=== PATIENT | female | born 1940 | race Caucasian/White ===

== ENCOUNTER 2022-05-13 11:19 | Inpatient (IN) | payer OTHER, SELFPAY ==
--- NOTE | ~2022-05-13 | XR_ITS ---
EXAMINATION: XR CHEST CLINICAL INFORMATION: Cough COMPARISON: None TECHNIQUE: 2 views of the chest were obtained. FINDINGS: No significant abnormality is noted involving the heart, lungs or mediastinum. A small hiatal hernia is present. Calcifications present in the right supraspinatus tendon consistent with tendinitis. Degenerative changes are present spine with scoliosis convex to right. XR/XR chest 2V IMPRESSION: No acute intrathoracic disease.
--- NOTE | ~2022-05-13 | CT_ITS ---
EXAMINATION: CT HEAD WITHOUT CONTRAST CLINICAL INFORMATION: The lesions, confusion. COMPARISON: None TECHNIQUE: Contiguous axial imaging was performed from the skull base to vertex without intravenous administration of contrast. Coronal and sagittal reformatted images were obtained. This CT examination was performed using dose optimization techniques as appropriate, variously including the following: *Automated exposure control *Adjustment of mA and/or kV according to patient size (this includes techniques or standardized protocols for targeted exams where dose is matched to indication/reason for exam; i.e. extremities or head) *Use of iterative reconstruction technique DLP: 600 mGy-cm FINDINGS: There is no evidence of acute intracranial hemorrhage or territorial infarction. No abnormal mass effect or midline shift is seen. Antunez to white matter differentiation is well preserved. No extra-axial fluid collections are identified. The ventricles are normal in size. There is no abnormal attenuation within the brain parenchyma. The osseous structures and soft tissues are normal. The mastoid air cells and visualized portions of the paranasal sinuses are well aerated. CT/CT head/brain wo con IMPRESSION: No acute intracranial pathology.
--- NOTE | ~2022-05-13 | XR_ITS ---
EXAMINATION: XR HAND WRIST, RIGHT CLINICAL INFORMATION: Fall, trauma, pain COMPARISON: None TECHNIQUE: Right hand and wrist are imaged together in 4 views. A navicular view of the wrist is also included for a total of 5 views. FINDINGS: There is generalized osteopenia. The ulnar variance is neutral. There is no acute or healing fracture, dislocation, destructive process. No erosive arthropathy. No periostitis. XR/XR hand wrist RT IMPRESSION: -No visible fracture or dislocation or destructive process. -Generalized osteopenia.
[2022-05-13 11:28] VITALS: BP 160/64; PULSE 78; O2SAT 98
[2022-05-13 12:42] VITALS: BP 168/72; PULSE 78; RESP 16; TEMP 36.6; O2SAT 95; BMI 25.9
--- NOTE | 2022-05-13 14:08 | ED.GENADULT ---
HPI - General Adult General Chief complaint: General Medical <JIL Starr - Last Filed: 05/13/22 18:48> Stated complaint: feels like bugs are biting her <JIL Starr - Last Filed: 05/13/22 18:48> Time Seen by Provider: 05/13/22 13:46 <JIL Starr Last Filed: 05/13/22 18:48> Source: patient and family (daughter) <JIL Starr Last Filed: 05/13/22 18:48> Mode of arrival: ambulatory <JIL Starr Last Filed: 05/13/22 18:48> Limitations: no limitations <JIL Starr Last Filed: 05/13/22 18:48> History of Present Illness HPI narrative: Patient is an 82 year old female presenting to the emergency department today with a possible bug infestation. Patient states that she has bugs all over her body that are biting her constantly. Patient states that they crawl into her skin then out of her skin and vomit a yellow substance, then crawl back into her skin. Patient's daughter states that no one else sees these bugs and aren't effected by them. Patient's daughter states that the patient was treated for a UTI a week and a half ago through [facility] and the delusions got better briefly. Patient's daughter states that she was given an anti-psychotic in the hospital that helped but they did not prescribe her one. Patient's daughter states that she called the patient's psychiatrist today and they recommended she come to the ED. Patient states that the bugs hurt her very badly. Patient denies any dizziness, lightheadedness, abdominal pain, nausea, vomiting, fever, chills, blurry vision, double vision, loss of vision, chest pain, difficulty breathing, shortness of breath, back pain, night sweats, pain with urination, increased urinary frequency, increased urinary urgency, blood in her urine or stool, syncope or a near syncopal episode, recent trauma or falls, bowel incontinence, bladder incontinence, bowel retention, bladder retention, or any other complaints at this time. <JIL Starr Last Filed: 05/13/22 18:48> Onset (ago): week(s) <JIL Starr Last Filed: 05/13/22 18:48> Pain Consistency: constant <JIL Starr Last Filed: 05/13/22 18:48> Relieving factors: none <JIL Starr Last Filed: 05/13/22 18:48> Exacerbating factors: none <JIL Starr Last Filed: 05/13/22 18:48> Associated symptoms: denies other symptoms <JIL Starr Last Filed: 05/13/22 18:48> Treatments prior to arrival: none <JIL Starr Last Filed: 05/13/22 18:48> Related Data Home medications: Home Medications Medication Instructions Recorded Confirmed amlodipine 10 mg tablet 1 tab PO DAILY 05/13/22 05/13/22 atorvastatin 40 mg tablet 1 tab PO DAILY 05/13/22 05/13/22 bupropion HCl 100 mg tablet,12 hr 1 tab PO QAM 05/13/22 05/13/22 sustained-release clopidogrel 75 mg tablet 1 tab PO DAILY 05/13/22 05/13/22 ezetimibe 10 mg tablet 1 tab PO DAILY 05/13/22 05/13/22 famotidine 20 mg tablet 1 tab PO DAILY 05/13/22 05/13/22 gabapentin 100 mg capsule 1 cap PO TID 05/13/22 05/13/22 insulin glargine 100 unit/mL (3 47 ea subcut DAILY 05/13/22 05/13/22 mL) subcutaneous pen (Lantus Solostar U-100 Insulin) levetiracetam 500 mg tablet 1 tab PO BID 05/13/22 05/13/22 loratadine 10 mg tablet 1 tab PO DAILY 05/13/22 05/13/22 metformin 500 mg tablet,extended 1 tab PO DAILY 05/13/22 05/13/22 release 24 hr mirtazapine 15 mg tablet 1 tab PO BEDTIME 05/13/22 05/13/22 sertraline 100 mg tablet 100 tab PO DAILY 05/13/22 05/13/22 tramadol 50 mg tablet 1 tab PO TID PRN Pain 05/13/22 05/13/22 <JIL Starr Last Filed: 05/13/22 18:48> Allergies/adverse reactions: Allergies Allergy/AdvReac Type Severity Reaction Status Date / Time Sulfa (Sulfonamide Allergy Hives Verified 05/13/22 11:29 Antibiotics) codeine AdvReac Gastrointestinal Verified 05/13/22 11:29 Upset <JIL Starr Last Filed: 05/13/22 18:48> Review of Systems Constitutional: Constitutional: Reports no additional constitutional complaints, Denies chills, Denies fever(s) and Denies night sweats <JIL Starr Last Filed: 05/13/22 18:48> Eyes: Eyes: Reports no additional eye complaints, Denies blurry vision, Denies change in vision, Denies diplopia, Denies eye discharge, Denies loss of vision and Denies eye pain <JIL Starr Last Filed: 05/13/22 18:48> ENT: Denies dizziness <JIL Starr Last Filed: 05/13/22 18:48> Cardiovascular: Cardiovascular: Reports no additional cardiovascular complaints, Denies chest pain, Denies lightheadedness, Denies Loss of Consciousness and Denies dyspnea <JIL Starr Last Filed: 05/13/22 18:48> Respiratory: Respiratory: Reports no additional respiratory complaints and Denies dyspnea <JIL Starr - Last Filed: 05/13/22 18:48> Gastrointestinal: Gastrointestinal: Reports no additional gastrointestinal complaints, Denies abdominal pain, Denies melena, Denies hematochezia, Denies change in bowel habits and Denies change in stool character <JIL Starr Last Filed: 05/13/22 18:48> Genitourinary: Genitourinary: Denies hematuria, Denies urinary frequency, Denies dysuria, Denies urinary incontinence, Denies urinary hesitancy and Denies urinary urgency <JIL Starr Last Filed: 05/13/22 18:48> Musculoskeletal: Musculoskeletal: Reports no additional musculoskeletal complaints, Denies numbness and Denies tingling <JIL Starr Last Filed: 05/13/22 18:48> Neurologic: Denies dizziness, Denies loss of vision, Denies numbness and Denies tingling <JIL Starr Last Filed: 05/13/22 18:48> Psychiatric: Psychiatric: Reports no additional psychiatric complaints and Reports visual hallucinations <JIL Starr - Last Filed: 05/13/22 18:48> Endocrine: Endocrine: Reports no additional endocrine complaints <JIL Starr - Last Filed: 05/13/22 18:48> Hematologic/Lymphatic: Hematologic/Lymphatic: Reports no additional hematologic/lymphatic complaints <JIL Starr - Last Filed: 05/13/22 18:48> Allergic/Immunologic: Allergic/Immunologic: Reports no additional allergic/immunologic complaints <JIL Starr - Last Filed: 05/13/22 18:48> ON LICENSE OF [facility] Past Medical History Attestation statement: The following information was validated with the patient. <JIL Starr - Last Filed: 05/13/22 18:48> Source: old records reviewed (including records from last [facility] ED visit ) <JIL Starr - Last Filed: 05/13/22 18:48> Social History Social History: Social History Alcohol intake: never Patient Tobacco Use Status: Never used Tobacco Use of substances other than those prescribed or required for medical reasons: No Advance Directives: Yes Advance Directives Information Provided: Yes Advance Directives on File: No <JIL Starr - Last Filed: 05/13/22 18:48> Physical Exam ED Vital Signs: Vital Signs - 24 hr 05/14/22 12:28 05/14/22 15:56 05/14/22 23:42 Temperature 98.3 F 98.3 F 98.4 F Pulse Rate 77 82 86 Respiratory Rate 16 16 16 Blood Pressure 145/72 H 140/76 H 137/60 Pulse Oximetry 95 94 93 Oxygen Delivery Method Room Air Room Air Room Air 05/15/22 04:00 05/15/22 06:00 05/15/22 07:59 Temperature 98.2 F 98.0 F Pulse Rate 77 76 81 Respiratory Rate 16 16 16 Blood Pressure 147/74 H 145/70 H 135/70 Pulse Oximetry 95 96 93 Oxygen Delivery Method Room Air Room Air Room Air BMI result Body Mass Index 25.9 <JIL Starr - Last Filed: 05/13/22 18:48> Vital Signs - 24 hr 05/14/22 12:28 05/14/22 15:56 05/14/22 23:42 Temperature 98.3 F 98.3 F 98.4 F Pulse Rate 77 82 86 Respiratory Rate 16 16 16 Blood Pressure 145/72 H 140/76 H 137/60 Pulse Oximetry 95 94 93 Oxygen Delivery Method Room Air Room Air Room Air 05/15/22 04:00 05/15/22 06:00 05/15/22 07:59 Temperature 98.2 F 98.0 F Pulse Rate 77 76 81 Respiratory Rate 16 16 16 Blood Pressure 147/74 H 145/70 H 135/70 Pulse Oximetry 95 96 93 Oxygen Delivery Method Room Air Room Air Room Air BMI result Body Mass Index 25.9 <JIL Leong Last Filed: 05/15/22 11:34> Const General: cooperative, no acute distress, alert and awake <JIL Starr Last Filed: 05/13/22 18:48> Nutritional Appearance: well nourished <JIL Starr Last Filed: 05/13/22 18:48> Orientation/consciousness: oriented to person and oriented to place <JIL Starr Last Filed: 05/13/22 18:48> Limitations: no limitations <JIL Starr Last Filed: 05/13/22 18:48> HENMT Head: Yes normal to inspection and Yes atraumatic <JIL Starr Last Filed: 05/13/22 18:48> Ears: hearing grossly normal bilaterally and external ears normal <JIL Starr Last Filed: 05/13/22 18:48> General nose exam: Normal external nose present, no nasal discharge noted and no epistaxis <JIL Starr Last Filed: 05/13/22 18:48> Face and sinus: Yes normal facial exam, No abrasion and No laceration <JIL Starr Last Filed: 05/13/22 18:48> Mouth: Normal oral and palatal mucosa present, no drooling and no muffled voice <JIL Starr Last Filed: 05/13/22 18:48> Eyes General: appearance normal, both eyes and all related structures <JIL Starr Last Filed: 05/13/22 18:48> Periorbital: periorbital findings normal <Kacy Awan PA - Last Filed: 05/13/22 18:48> Eyelids: Yes eyelids normal <Kacy Awan PA - Last Filed: 05/13/22 18:48> Conjunctivae: conjunctivae normal <Kacy Awan PA - Last Filed: 05/13/22 18:48> Pupils: Equal, round and reactive pupils present <Kacy Awan PA - Last Filed: 05/13/22 18:48> EOM: EOMs intact bilaterally <Kacy Awan PA - Last Filed: 05/13/22 18:48> Neck Neck: Yes normal visual inspection, Yes full ROM and Yes no lymphadenopathy <Kacy Awan PA - Last Filed: 05/13/22 18:48> Chest Chest palpation & inspection: normal inspection of the chest <Kacy Awan PA - Last Filed: 05/13/22 18:48> Resp Effort & Inspection: normal respiratory effort and able to speak in complete sentences <Kacy Awan PA - Last Filed: 05/13/22 18:48> Auscultation: clear to auscultation bilaterally <Kacy Awan PA - Last Filed: 05/13/22 18:48> Cardio Rate: regular rate <Kacy Awan PA - Last Filed: 05/13/22 18:48> Rhythm: regular rhythm <Kacy Awan PA - Last Filed: 05/13/22 18:48> GI Inspection: Yes normal to inspection <Kacy Awan PA - Last Filed: 05/13/22 18:48> Neuro General: oriented to person, oriented to place and moves all extremities <Kacy Awan PA - Last Filed: 05/13/22 18:48> Cranial nerves: Yes Equal, round and reactive pupils present <Kacy Awan PA - Last Filed: 05/13/22 18:48> Cognition (Neuro): normal cognition <Kacy Awan PA - Last Filed: 05/13/22 18:48> Motor exam (neuro): 5/5 motor strength present throughout <Kacy Awan PA - Last Filed: 05/13/22 18:48> Sensory Exam: Normal double simultaneous stimulation for sensation <Kacyeduard NavaJIL youssef Last Filed: 05/13/22 18:48> Coordination: [id number] test normal <Kacyeduard NavaJIL youssef - Last Filed: 05/13/22 18:48> Extrem General: Yes normal to inspection, Yes full ROM and Yes capillary refill normal <Kacyeduard NavaJIL youssef - Last Filed: 05/13/22 18:48> Psych Appearance: grossly normal <Kacy JIL Awan - Last Filed: 05/13/22 18:48> Mental Status: mental status grossly normal <Kacy AwanJIL youssef - Last Filed: 05/13/22 18:48> Affect: normal affect <JIL Starr - Last Filed: 05/13/22 18:48> Attitude: cooperative <JIL Starr - Last Filed: 05/13/22 18:48> Thought process: Normal thought process present <JIL Starr - Last Filed: 05/13/22 18:48> Thought content: Hallucination(s) present visual and tactile <JIL Starr Last Filed: 05/13/22 18:48> Insight: Good insight present (Psych) <JIL Starr - Last Filed: 05/13/22 18:48> Course Course Course Narrative: Physician observation continued. Patient has been seen by Psychiatry and plan is for admission to today. She was seen at [facility] last month, started on risperidone but not discharged on it. She had issues with prolonged QTC at that time. Will repeat her EKG now and reassess her QTC. Was 468 on 05/13/22. Her vital signs are within normal limits today. She is slightly anxious, complaining of a headache for which she got Tylenol. Will continue monitor until she goes up stairs. <JIL Leong - Last Filed: 05/15/22 11:34> Medical Decision Making MDM Narrative Medical decision making narrative: Patient is an 82 year old female presenting to the emergency department today with delusions of bugs biting and living in her skin. Patient's physical exam was unremarkable. Patient's blood work was unremarkable. Patient's urine showed no acute process. Patient's EKG was unremarkable. Patient's chest x-ray and head CT showed no acute process. I explained my physical exam findings as well as all test results to the patient and the patient's daughter. I answered all questions asked by the patient and the patient's daughter. Patient is pending a services consult. Patient signed out to Kathleen BUTCHER. <JIL Starr - Last Filed: 05/13/22 18:48> Differential Diagnosis Differential Diagnosis: dementia, dellusions <JIL Starr - Last Filed: 05/13/22 18:48> Medical Records Medical records reviewed: Yes I reviewed the patient's medical records. <JIL Starr - Last Filed: 05/13/22 18:48> Lab Data Lab results reviewed: Yes I reviewed the patient's lab results. <JIL Starr - Last Filed: 05/13/22 18:48> Result diagrams: : 05/13/22 14:38 05/13/22 14:38 <JIL Starr - Last Filed: 05/13/22 18:48> Labs: Lab Results 05/13/22 05/13/22 05/13/22 Range/Units 14:38 14:38 14:38 WBC 9.3 (4.8-10.8) X10*3/uL RBC 4.91 (4.20-5.50) X10*6/uL Hgb 13.6 (12.0-16.0) g/dl Hct 43.1 (37.0-47.0) % MCV 87.8 (80.0-98.0) fL MCH 27.7 (27.0-33.0) pg MCHC 31.6 (31.0-35.0) g/dl RDW 16.7 H (11.0-16.0) % Plt Count 373 (160-400) X10*3/uL MPV 9.2 L (9.4-12.3) fL Immature Gran % (Auto) 0.3 (0.0-0.4) % Neut % (Auto) 54.3 (45-73) % Lymph % (Auto) 35.1 (20-40) % [place] % (Auto) 8.0 (2-11) % Eos % (Auto) 1.9 (0-4) % Baso % (Auto) 0.4 (0-2) % Lymph # (Auto) 3.3 (1.2-4.9) X10*3/uL [place] # (Auto) 0.7 (0.1-1.2) X10*3/uL Eos # (Auto) 0.2 (0.0-0.4) X10*3/uL Baso # (Auto) 0.0 (0.0-0.2) X10*3/uL Abs Immat Gran (auto) 0.03 (0.00-0.03) X10*3/uL Absolute Neuts (auto) 5.0 (2.0-8.3) x10*3/uL Absolute Nucleated RBC 0.000 (0.0-0.012) X10*3/uL Nucleated RBC % (auto) 0.0 (0.0-0.2) /100WBC Sodium 145 (135-145) mmol/L Potassium 3.4 (3.3-5.1) mmol/L Chloride 106 (96-108) mmol/L Carbon Dioxide 28 (22-29) mmol/L Anion Gap 14 (12-20) BUN 15 (9-16) mg/dL Creatinine 0.92 (0.5-1.4) mg/dL Estim Creat Clear Calc 34.0 Estimated GFR 59 POC Glucose (60-115) mg/dL Random Glucose 65 (60-115) mg/dL Calcium 8.8 (8.4-10.2) mg/dL Magnesium 1.6 (1.6-2.6) mg/dL Total Bilirubin 0.6 (0.0-1.0) mg/dL AST 33 H (5-31) U/L ALT 31 (0-31) U/L Alkaline Phosphatase 105 (39-117) U/L Troponin I High Sens < 3.5 (<3.5-17.0) ng/L Total Protein 6.7 (6.5-8.0) g/dL Albumin 4.2 (3.5-5.0) g/dL Urine Color Urine Appearance Urine pH (5.0-8.0) Ur Specific [place] (1.005-1.025) Urine Protein (NEG-TRACE) MG/DL Urine Glucose (UA) (NEG) MG/DL Urine Ketones (NEG) MG/DL Urine Blood (NEG) Urine Nitrite (NEG) Ur Leukocyte Esterase (NEG) Urine RBC (0) /HPF Urine WBC (0-4) /HPF Ur Squamous Epith Cells /LPF Urine Bacteria /LPF Salicylates < 5.0 L (15-30) mg/dL Acetaminophen 3 (<30) mcg/mL COVID-19 ([facility]) (Negative) COVID-19 Clin Com Influenza Type A (RICK) (Negative) Influenza Type B (RICK) (Negative) Influenza A & B Note 05/13/22 05/13/22 05/13/22 Range/Units 14:38 14:38 17:43 WBC (4.8-10.8) X10*3/uL RBC (4.20-5.50) X10*6/uL Hgb (12.0-16.0) g/dl Hct (37.0-47.0) % MCV (80.0-98.0) fL MCH (27.0-33.0) pg MCHC (31.0-35.0) g/dl RDW (11.0-16.0) % Plt Count (160-400) X10*3/uL MPV (9.4-12.3) fL Immature Gran % (Auto) (0.0-0.4) % Neut % (Auto) (45-73) % Lymph % (Auto) (20-40) % [place] % (Auto) (2-11) % Eos % (Auto) (0-4) % Baso % (Auto) (0-2) % Lymph # (Auto) (1.2-4.9) X10*3/uL [place] # (Auto) (0.1-1.2) X10*3/uL Eos # (Auto) (0.0-0.4) X10*3/uL Baso # (Auto) (0.0-0.2) X10*3/uL Abs Immat Gran (auto) (0.00-0.03) X10*3/uL Absolute Neuts (auto) (2.0-8.3) x10*3/uL Absolute Nucleated RBC (0.0-0.012) X10*3/uL Nucleated RBC % (auto) (0.0-0.2) /100WBC Sodium (135-145) mmol/L Potassium (3.3-5.1) mmol/L Chloride (96-108) mmol/L Carbon Dioxide (22-29) mmol/L Anion Gap (12-20) BUN (9-16) mg/dL Creatinine (0.5-1.4) mg/dL Estim Creat Clear Calc Estimated GFR POC Glucose (60-115) mg/dL Random Glucose (60-115) mg/dL Calcium (8.4-10.2) mg/dL Magnesium (1.6-2.6) mg/dL Total Bilirubin (0.0-1.0) mg/dL AST (5-31) U/L ALT (0-31) U/L Alkaline Phosphatase (39-117) U/L Troponin I High Sens (<3.5-17.0) ng/L Total Protein (6.5-8.0) g/dL Albumin (3.5-5.0) g/dL Urine Color YELLOW Urine Appearance CLEAR Urine pH 6.0 (5.0-8.0) Ur Specific [place] 1.025 (1.005-1.025) Urine Protein NEG (NEG-TRACE) MG/DL Urine Glucose (UA) NEG (NEG) MG/DL Urine Ketones NEG (NEG) MG/DL Urine Blood NEG (NEG) Urine Nitrite NEG (NEG) Ur Leukocyte Esterase TRACE H (NEG) Urine RBC 15-29 H (0) /HPF Urine WBC 0-2 (0-4) /HPF Ur Squamous Epith Cells 3+ /LPF Urine Bacteria 1+ /LPF Salicylates (15-30) mg/dL Acetaminophen (<30) mcg/mL COVID-19 ([facility]) Negative (Negative) COVID-19 Clin Com See Note Influenza Type A (RICK) Negative (Negative) Influenza Type B (RICK) Negative (Negative) Influenza A & B Note See Note 05/13/22 05/13/22 05/14/22 Range/Units 18:30 21:50 07:06 WBC (4.8-10.8) X10*3/uL RBC (4.20-5.50) X10*6/uL Hgb (12.0-16.0) g/dl Hct (37.0-47.0) % MCV (80.0-98.0) fL MCH (27.0-33.0) pg MCHC (31.0-35.0) g/dl RDW (11.0-16.0) % Plt Count (160-400) X10*3/uL MPV (9.4-12.3) fL Immature Gran % (Auto) (0.0-0.4) % Neut % (Auto) (45-73) % Lymph % (Auto) (20-40) % [place] % (Auto) (2-11) % Eos % (Auto) (0-4) % Baso % (Auto) (0-2) % Lymph # (Auto) (1.2-4.9) X10*3/uL [place] # (Auto) (0.1-1.2) X10*3/uL Eos # (Auto) (0.0-0.4) X10*3/uL Baso # (Auto) (0.0-0.2) X10*3/uL Abs Immat Gran (auto) (0.00-0.03) X10*3/uL Absolute Neuts (auto) (2.0-8.3) x10*3/uL Absolute Nucleated RBC (0.0-0.012) X10*3/uL Nucleated RBC % (auto) (0.0-0.2) /100WBC Sodium (135-145) mmol/L Potassium (3.3-5.1) mmol/L Chloride (96-108) mmol/L Carbon Dioxide (22-29) mmol/L Anion Gap (12-20) BUN (9-16) mg/dL Creatinine (0.5-1.4) mg/dL Estim Creat Clear Calc Estimated GFR POC Glucose 63 174 H 89 (60-115) mg/dL Random Glucose (60-115) mg/dL Calcium (8.4-10.2) mg/dL Magnesium (1.6-2.6) mg/dL Total Bilirubin (0.0-1.0) mg/dL AST (5-31) U/L ALT (0-31) U/L Alkaline Phosphatase (39-117) U/L Troponin I High Sens (<3.5-17.0) ng/L Total Protein (6.5-8.0) g/dL Albumin (3.5-5.0) g/dL Urine Color Urine Appearance Urine pH (5.0-8.0) Ur Specific [place] (1.005-1.025) Urine Protein (NEG-TRACE) MG/DL Urine Glucose (UA) (NEG) MG/DL Urine Ketones (NEG) MG/DL Urine Blood (NEG) Urine Nitrite (NEG) Ur Leukocyte Esterase (NEG) Urine RBC (0) /HPF Urine WBC (0-4) /HPF Ur Squamous Epith Cells /LPF Urine Bacteria /LPF Salicylates (15-30) mg/dL Acetaminophen (<30) mcg/mL COVID-19 ([facility]) (Negative) COVID-19 Clin Com Influenza Type A (RICK) (Negative) Influenza Type B (RICK) (Negative) Influenza A & B Note 05/14/22 05/15/22 Range/Units 18:37 07:14 WBC (4.8-10.8) X10*3/uL RBC (4.20-5.50) X10*6/uL Hgb (12.0-16.0) g/dl Hct (37.0-47.0) % MCV (80.0-98.0) fL MCH (27.0-33.0) pg MCHC (31.0-35.0) g/dl RDW (11.0-16.0) % Plt Count (160-400) X10*3/uL MPV (9.4-12.3) fL Immature Gran % (Auto) (0.0-0.4) % Neut % (Auto) (45-73) % Lymph % (Auto) (20-40) % [place] % (Auto) (2-11) % Eos % (Auto) (0-4) % Baso % (Auto) (0-2) % Lymph # (Auto) (1.2-4.9) X10*3/uL [place] # (Auto) (0.1-1.2) X10*3/uL Eos # (Auto) (0.0-0.4) X10*3/uL Baso # (Auto) (0.0-0.2) X10*3/uL Abs Immat Gran (auto) (0.00-0.03) X10*3/uL Absolute Neuts (auto) (2.0-8.3) x10*3/uL Absolute Nucleated RBC (0.0-0.012) X10*3/uL Nucleated RBC % (auto) (0.0-0.2) /100WBC Sodium (135-145) mmol/L Potassium (3.3-5.1) mmol/L Chloride (96-108) mmol/L Carbon Dioxide (22-29) mmol/L Anion Gap (12-20) BUN (9-16) mg/dL Creatinine (0.5-1.4) mg/dL Estim Creat Clear Calc Estimated GFR POC Glucose 83 84 (60-115) mg/dL Random Glucose (60-115) mg/dL Calcium (8.4-10.2) mg/dL Magnesium (1.6-2.6) mg/dL Total Bilirubin (0.0-1.0) mg/dL AST (5-31) U/L ALT (0-31) U/L Alkaline Phosphatase (39-117) U/L Troponin I High Sens (<3.5-17.0) ng/L Total Protein (6.5-8.0) g/dL Albumin (3.5-5.0) g/dL Urine Color Urine Appearance Urine pH (5.0-8.0) Ur Specific [place] (1.005-1.025) Urine Protein (NEG-TRACE) MG/DL Urine Glucose (UA) (NEG) MG/DL Urine Ketones (NEG) MG/DL Urine Blood (NEG) Urine Nitrite (NEG) Ur Leukocyte Esterase (NEG) Urine RBC (0) /HPF Urine WBC (0-4) /HPF Ur Squamous Epith Cells /LPF Urine Bacteria /LPF Salicylates (15-30) mg/dL Acetaminophen (<30) mcg/mL COVID-19 ([facility]) (Negative) COVID-19 Clin Com Influenza Type A (RICK) (Negative) Influenza Type B (RICK) (Negative) Influenza A & B Note <JLI Starr - Last Filed: 05/13/22 18:48> Lab Results 05/13/22 05/13/22 05/13/22 Range/Units 14:38 14:38 14:38 WBC 9.3 (4.8-10.8) X10*3/uL RBC 4.91 (4.20-5.50) X10*6/uL Hgb 13.6 (12.0-16.0) g/dl Hct 43.1 (37.0-47.0) % MCV 87.8 (80.0-98.0) fL MCH 27.7 (27.0-33.0) pg MCHC 31.6 (31.0-35.0) g/dl RDW 16.7 H (11.0-16.0) % Plt Count 373 (160-400) X10*3/uL MPV 9.2 L (9.4-12.3) fL Immature Gran % (Auto) 0.3 (0.0-0.4) % Neut % (Auto) 54.3 (45-73) % Lymph % (Auto) 35.1 (20-40) % [place] % (Auto) 8.0 (2-11) % Eos % (Auto) 1.9 (0-4) % Baso % (Auto) 0.4 (0-2) % Lymph # (Auto) 3.3 (1.2-4.9) X10*3/uL [place] # (Auto) 0.7 (0.1-1.2) X10*3/uL Eos # (Auto) 0.2 (0.0-0.4) X10*3/uL Baso # (Auto) 0.0 (0.0-0.2) X10*3/uL Abs Immat Gran (auto) 0.03 (0.00-0.03) X10*3/uL Absolute Neuts (auto) 5.0 (2.0-8.3) x10*3/uL Absolute Nucleated RBC 0.000 (0.0-0.012) X10*3/uL Nucleated RBC % (auto) 0.0 (0.0-0.2) /100WBC Sodium 145 (135-145) mmol/L Potassium 3.4 (3.3-5.1) mmol/L Chloride 106 (96-108) mmol/L Carbon Dioxide 28 (22-29) mmol/L Anion Gap 14 (12-20) BUN 15 (9-16) mg/dL Creatinine 0.92 (0.5-1.4) mg/dL Estim Creat Clear Calc 34.0 Estimated GFR 59 POC Glucose (60-115) mg/dL Random Glucose 65 (60-115) mg/dL Calcium 8.8 (8.4-10.2) mg/dL Magnesium 1.6 (1.6-2.6) mg/dL Total Bilirubin 0.6 (0.0-1.0) mg/dL AST 33 H (5-31) U/L ALT 31 (0-31) U/L Alkaline Phosphatase 105 (39-117) U/L Troponin I High Sens < 3.5 (<3.5-17.0) ng/L Total Protein 6.7 (6.5-8.0) g/dL Albumin 4.2 (3.5-5.0) g/dL Urine Color Urine Appearance Urine pH (5.0-8.0) Ur Specific [place] (1.005-1.025) Urine Protein (NEG-TRACE) MG/DL Urine Glucose (UA) (NEG) MG/DL Urine Ketones (NEG) MG/DL Urine Blood (NEG) Urine Nitrite (NEG) Ur Leukocyte Esterase (NEG) Urine RBC (0) /HPF Urine WBC (0-4) /HPF Ur Squamous Epith Cells /LPF Urine Bacteria /LPF Salicylates < 5.0 L (15-30) mg/dL Acetaminophen 3 (<30) mcg/mL COVID-19 ([facility]) (Negative) COVID-19 Clin Com Influenza Type A ([facility]) (Negative) Influenza Type B ([facility]ICK) (Negative) Influenza A & B Note 05/13/22 05/13/22 05/13/22 Range/Units 14:38 14:38 17:43 WBC (4.8-10.8) X10*3/uL RBC (4.20-5.50) X10*6/uL Hgb (12.0-16.0) g/dl Hct (37.0-47.0) % MCV (80.0-98.0) fL MCH (27.0-33.0) pg MCHC (31.0-35.0) g/dl RDW (11.0-16.0) % Plt Count (160-400) X10*3/uL MPV (9.4-12.3) fL Immature Gran % (Auto) (0.0-0.4) % Neut % (Auto) (45-73) % Lymph % (Auto) (20-40) % [place] % (Auto) (2-11) % Eos % (Auto) (0-4) % Baso % (Auto) (0-2) % Lymph # (Auto) (1.2-4.9) X10*3/uL [place] # (Auto) (0.1-1.2) X10*3/uL Eos # (Auto) (0.0-0.4) X10*3/uL Baso # (Auto) (0.0-0.2) X10*3/uL Abs Immat Gran (auto) (0.00-0.03) X10*3/uL Absolute Neuts (auto) (2.0-8.3) x10*3/uL Absolute Nucleated RBC (0.0-0.012) X10*3/uL Nucleated RBC % (auto) (0.0-0.2) /100WBC Sodium (135-145) mmol/L Potassium (3.3-5.1) mmol/L Chloride (96-108) mmol/L Carbon Dioxide (22-29) mmol/L Anion Gap (12-20) BUN (9-16) mg/dL Creatinine (0.5-1.4) mg/dL Estim Creat Clear Calc Estimated GFR POC Glucose (60-115) mg/dL Random Glucose (60-115) mg/dL Calcium (8.4-10.2) mg/dL Magnesium (1.6-2.6) mg/dL Total Bilirubin (0.0-1.0) mg/dL AST (5-31) U/L ALT (0-31) U/L Alkaline Phosphatase (39-117) U/L Troponin I High Sens (<3.5-17.0) ng/L Total Protein (6.5-8.0) g/dL Albumin (3.5-5.0) g/dL Urine Color YELLOW Urine Appearance CLEAR Urine pH 6.0 (5.0-8.0) Ur Specific [place] 1.025 (1.005-1.025) Urine Protein NEG (NEG-TRACE) MG/DL Urine Glucose (UA) NEG (NEG) MG/DL Urine Ketones NEG (NEG) MG/DL Urine Blood NEG (NEG) Urine Nitrite NEG (NEG) Ur Leukocyte Esterase TRACE H (NEG) Urine RBC 15-29 H (0) /HPF Urine WBC 0-2 (0-4) /HPF Ur Squamous Epith Cells 3+ /LPF Urine Bacteria 1+ /LPF Salicylates (15-30) mg/dL Acetaminophen (<30) mcg/mL COVID-19 ([facility]) Negative (Negative) COVID-19 Clin Com See Note Influenza Type A ([facility]) Negative (Negative) Influenza Type B (RICK) Negative (Negative) Influenza A & B Note See Note 05/13/22 05/13/22 05/14/22 Range/Units 18:30 21:50 07:06 WBC (4.8-10.8) X10*3/uL RBC (4.20-5.50) X10*6/uL Hgb (12.0-16.0) g/dl Hct (37.0-47.0) % MCV (80.0-98.0) fL MCH (27.0-33.0) pg MCHC (31.0-35.0) g/dl RDW (11.0-16.0) % Plt Count (160-400) X10*3/uL MPV (9.4-12.3) fL Immature Gran % (Auto) (0.0-0.4) % Neut % (Auto) (45-73) % Lymph % (Auto) (20-40) % [place] % (Auto) (2-11) % Eos % (Auto) (0-4) % Baso % (Auto) (0-2) % Lymph # (Auto) (1.2-4.9) X10*3/uL [place] # (Auto) (0.1-1.2) X10*3/uL Eos # (Auto) (0.0-0.4) X10*3/uL Baso # (Auto) (0.0-0.2) X10*3/uL Abs Immat Gran (auto) (0.00-0.03) X10*3/uL Absolute Neuts (auto) (2.0-8.3) x10*3/uL Absolute Nucleated RBC (0.0-0.012) X10*3/uL Nucleated RBC % (auto) (0.0-0.2) /100WBC Sodium (135-145) mmol/L Potassium (3.3-5.1) mmol/L Chloride (96-108) mmol/L Carbon Dioxide (22-29) mmol/L Anion Gap (12-20) BUN (9-16) mg/dL Creatinine (0.5-1.4) mg/dL Estim Creat Clear Calc Estimated GFR POC Glucose 63 174 H 89 (60-115) mg/dL Random Glucose (60-115) mg/dL Calcium (8.4-10.2) mg/dL Magnesium (1.6-2.6) mg/dL Total Bilirubin (0.0-1.0) mg/dL AST (5-31) U/L ALT (0-31) U/L Alkaline Phosphatase (39-117) U/L Troponin I High Sens (<3.5-17.0) ng/L Total Protein (6.5-8.0) g/dL Albumin (3.5-5.0) g/dL Urine Color Urine Appearance Urine pH (5.0-8.0) Ur Specific [place] (1.005-1.025) Urine Protein (NEG-TRACE) MG/DL Urine Glucose (UA) (NEG) MG/DL Urine Ketones (NEG) MG/DL Urine Blood (NEG) Urine Nitrite (NEG) Ur Leukocyte Esterase (NEG) Urine RBC (0) /HPF Urine WBC (0-4) /HPF Ur Squamous Epith Cells /LPF Urine Bacteria /LPF Salicylates (15-30) mg/dL Acetaminophen (<30) mcg/mL COVID-19 ([facility]OR) (Negative) COVID-19 Clin Com Influenza Type A (RICK) (Negative) Influenza Type B (RICK) (Negative) Influenza A & B Note 05/14/22 05/15/22 Range/Units 18:37 07:14 WBC (4.8-10.8) X10*3/uL RBC (4.20-5.50) X10*6/uL Hgb (12.0-16.0) g/dl Hct (37.0-47.0) % MCV (80.0-98.0) fL MCH (27.0-33.0) pg MCHC (31.0-35.0) g/dl RDW (11.0-16.0) % Plt Count (160-400) X10*3/uL MPV (9.4-12.3) fL Immature Gran % (Auto) (0.0-0.4) % Neut % (Auto) (45-73) % Lymph % (Auto) (20-40) % [place] % (Auto) (2-11) % Eos % (Auto) (0-4) % Baso % (Auto) (0-2) % Lymph # (Auto) (1.2-4.9) X10*3/uL [place] # (Auto) (0.1-1.2) X10*3/uL Eos # (Auto) (0.0-0.4) X10*3/uL Baso # (Auto) (0.0-0.2) X10*3/uL Abs Immat Gran (auto) (0.00-0.03) X10*3/uL Absolute Neuts (auto) (2.0-8.3) x10*3/uL Absolute Nucleated RBC (0.0-0.012) X10*3/uL Nucleated RBC % (auto) (0.0-0.2) /100WBC Sodium (135-145) mmol/L Potassium (3.3-5.1) mmol/L Chloride (96-108) mmol/L Carbon Dioxide (22-29) mmol/L Anion Gap (12-20) BUN (9-16) mg/dL Creatinine (0.5-1.4) mg/dL Estim Creat Clear Calc Estimated GFR POC Glucose 83 84 (60-115) mg/dL Random Glucose (60-115) mg/dL Calcium (8.4-10.2) mg/dL Magnesium (1.6-2.6) mg/dL Total Bilirubin (0.0-1.0) mg/dL AST (5-31) U/L ALT (0-31) U/L Alkaline Phosphatase (39-117) U/L Troponin I High Sens (<3.5-17.0) ng/L Total Protein (6.5-8.0) g/dL Albumin (3.5-5.0) g/dL Urine Color Urine Appearance Urine pH (5.0-8.0) Ur Specific [place] (1.005-1.025) Urine Protein (NEG-TRACE) MG/DL Urine Glucose (UA) (NEG) MG/DL Urine Ketones (NEG) MG/DL Urine Blood (NEG) Urine Nitrite (NEG) Ur Leukocyte Esterase (NEG) Urine RBC (0) /HPF Urine WBC (0-4) /HPF Ur Squamous Epith Cells /LPF Urine Bacteria /LPF Salicylates (15-30) mg/dL Acetaminophen (<30) mcg/mL COVID-19 ([facility]) (Negative) COVID-19 Clin Com Influenza Type A (RICK) (Negative) Influenza Type B (RICK) (Negative) Influenza A & B Note <JIL Leong - Last Filed: 05/15/22 11:34> Imaging Data Chest x-ray: Attestation: I personally reviewed and interpreted this imaging study as follows: <JIL Starr - Last Filed: 05/13/22 18:48> My impression: No acute process. <JIL Starr - Last Filed: 05/13/22 18:48> Radiologist's impression: EXAMINATION: XR CHEST CLINICAL INFORMATION: Cough COMPARISON: None TECHNIQUE: 2 views of the chest were obtained. FINDINGS: No significant abnormality is noted involving the heart, lungs or mediastinum. A small hiatal hernia is present. Calcifications present in the right supraspinatus tendon consistent with tendinitis. Degenerative changes are present spine with scoliosis convex to right. XR/XR chest 2V IMPRESSION: No acute intrathoracic disease. Dictated By: Estevan Ramesh MD Signed By: Electronically signed by Estevan Ramesh MD 05/13/22 1520 <JIL Starr - Last Filed: 05/13/22 18:48> CT scan - head: Attestation: I personally reviewed and interpreted this imaging study as follows: <JIL Starr - Last Filed: 05/13/22 18:48> My impression: No acute process. <JIL Starr - Last Filed: 05/13/22 18:48> Radiologist's impression: EXAMINATION: CT HEAD WITHOUT CONTRAST CLINICAL INFORMATION: The lesions, confusion.? COMPARISON: None TECHNIQUE: Contiguous axial imaging was performed from the skull base to vertex without intravenous administration of contrast. Coronal and sagittal reformatted images were obtained. This CT examination was performed using dose optimization techniques as appropriate, variously including the following: *Automated exposure control *Adjustment of mA and/or kV according to patient size (this includes techniques or standardized protocols for targeted exams where dose is matched to indication/reason for exam; i.e. extremities or head) *Use of iterative reconstruction technique DLP: 600 mGy-cm FINDINGS: There is no evidence of acute intracranial hemorrhage or territorial infarction. No abnormal mass effect or midline shift is seen. Antunez to white matter differentiation is well preserved. No extra-axial fluid collections are identified. The ventricles are normal in size. There is no abnormal attenuation within the brain parenchyma. The osseous structures and soft tissues are normal. The mastoid air cells and visualized portions of the paranasal sinuses are well aerated. ? CT/CT head/brain wo con IMPRESSION: No acute intracranial pathology. Dictated By: Estuardo Bal MD Signed By: Electronically signed by Estuardo Bal MD 05/13/22 1525 <JIL Starr - Last Filed: 05/13/22 18:48> ECG Data Attestation: I personally reviewed and interpreted this ECG as follows: <JIL Starr - Last Filed: 05/13/22 18:48> Prior ECG tracings: not available for review <JIL Starr - Last Filed: 05/13/22 18:48> Interpretation: Vent. Rate: 080 BPM ? ? Atrial Rate: 080 BPM P-R Int: 146 ms? QRS Dur: 064 ms QT Int: 406 ms ? ? ? P-R-T Axes: 049 033 041 degrees QTc Int: 468 ms ? Normal sinus rhythm Normal ECG No previous ECGs available Dictated By: Cholo Nunn MD Signed By: Electronically signed by Cholo Nunn MD 05/13/22 1611 <JIL Starr - Last Filed: 05/13/22 18:48> Discharge Plan Discharge Clinical Impression: Delusions, UTI (urinary tract infection) <JIL Starr Last Filed: 05/13/22 18:48> Patient Disposition: Still a Patient <JIL Starr Last Filed: 05/13/22 18:48> Prescriptions: No Action atorvastatin 40 mg tablet 1 tab PO DAILY levetiracetam 500 mg tablet 1 tab PO BID sertraline 100 mg tablet 100 tab PO DAILY clopidogrel 75 mg tablet 1 tab PO DAILY tramadol 50 mg tablet 1 tab PO TID PRN (Reason: Pain) bupropion HCl 100 mg tablet sustained-release 12 hr 1 tab PO QAM famotidine 20 mg tablet 1 tab PO DAILY amlodipine 10 mg tablet 1 tab PO DAILY mirtazapine 15 mg tablet 1 tab PO BEDTIME gabapentin 100 mg capsule 1 cap PO TID metformin 500 mg tablet extended release 24 hr 1 tab PO DAILY loratadine 10 mg tablet 1 tab PO DAILY ezetimibe 10 mg tablet 1 tab PO DAILY insulin glargine [Lantus Solostar U-100 Insulin] 100 unit/mL (3 mL) insulin pen 47 ea subcut DAILY <JIL Starr - Last Filed: 05/13/22 18:48>
--- NOTE | 2022-05-13 14:14 | ECG_ITS ---
Test Reason : sob Blood Pressure : / mmHG Vent. Rate : 080 BPM Atrial Rate : 080 BPM P-R Int : 146 ms QRS Dur : 064 ms QT Int : 406 ms P-R-T Axes : 049 033 041 degrees QTc Int : 468 ms Normal sinus rhythm Normal ECG No previous ECGs available Referred By: Kacy Awan Electronically Signed By:MADDI FERNANDEZ MD
--- NOTE | 2022-05-13 14:41 | PHA.MEDREC ---
Pharmacy Consult ? Medication Reconciliation Pharmacy has completed the medication reconciliation Patient did not know her medications. Called Tommy and Daniel to confirm list..
[2022-05-13 14:42] LABS: MANUAL DIFF FLAG NO
[2022-05-13 14:46] LABS: Basophils Percent Auto 0.4 % (0-2); Eosinophils Absolute Auto 0.2 X10*3/uL (0.0-0.4); Eosinophils Percent Auto 1.9 % (0-4); Hematocrit 43.1 % (37.0-47.0); Hemoglobin 13.6 g/dl (12.0-16.0); Imm Gran Abs Auto 0.03 X10*3/uL (0.00-0.03); Imm Gran Pct Auto 0.3 % (0.0-0.4); Lymphocytes Absolute Auto 3.3 X10*3/uL (1.2-4.9); Lymphocytes Percent Auto 35.1 % (20-40); Mean Corpuscular HGB Conc 31.6 g/dl (31.0-35.0); Mean Corpuscular Hemoglobin 27.7 pg (27.0-33.0); Mean Corpuscular Volume 87.8 fL (80.0-98.0); Mean Platelet Volume 9.2 fL (9.4-12.3); Monocytes Absolute Auto 0.7 X10*3/uL (0.1-1.2); Neutrophils Percent Auto 54.3 % (45-73); Platelet Count 373 X10*3/uL (160-400); Red Blood Count 4.91 X10*6/uL (4.20-5.50); Red Cell Distribution Width 16.7 % (11.0-16.0); White Blood Count 9.3 X10*3/uL (4.8-10.8)
[2022-05-13 15:01] LABS: Acetaminophen LAB 3 mcg/mL (<30); Alanine Aminotransferase 31 U/L (0-31); Albumin Level 4.2 g/dL (3.5-5.0); Alkaline Phosphatase 105 U/L (39-117); Anion Gap 14 (12-20); Aspartate Amino Transferase 33 U/L (5-31); Bilirubin Total 0.6 mg/dL (0.0-1.0); Blood Urea Nitrogen 15 mg/dL (9-16); Calcium 8.8 mg/dL (8.4-10.2); Carbon Dioxide 28 mmol/L (22-29); Chloride 106 mmol/L (96-108); Estimated Glomerular Filt Rate 59; Glucose Random 65 mg/dL (60-115); Magnesium 1.6 mg/dL (1.6-2.6); Potassium 3.4 mmol/L (3.3-5.1); Salicylate < 5.0 mg/dL (15-30); Sodium 145 mmol/L (135-145); Total Protein 6.7 g/dL (6.5-8.0)
[2022-05-13] MEDS: LORazepam 1 MG TABLET PO (15:04)
[2022-05-13 15:05] LABS: Troponin-I High Sensitivity < 3.5 ng/L (<3.5-17.0)
--- NOTE | 2022-05-13 15:06 | PC.NURSE ---
pt is a/o x 2, pt did not know the year. denies any si/hi.
[2022-05-13 15:16] LABS: COVID-19 Test Negative (Negative); IDNOW Serial# 9DB6401D
[2022-05-13 15:17] LABS: IDNOW Serial# 55D5AD1C; Influenza A Negative (Negative); Influenza B2 Negative (Negative)
--- NOTE | 2022-05-13 17:30 | PC.NURSE ---
pt changed into hospital gown, remains confused. Able to void in bed garcia without difficulty when prompted. Requesting food, appears comfortable at rest
[2022-05-13 17:55] LABS: Appearance Urine CLEAR; Color Urine YELLOW; Glucose Urine UA NEG (NEG); Leukocyte Esterase Urine TRACE (NEG); Nitrite Urine NEG (NEG); Specific Gravity - Urine 1.025 (1.005-1.025); Urine Blood NEG (NEG); Urine Ketones NEG (NEG); Urine Protein NEG (NEG-TRACE)
[2022-05-13 18:07] LABS: Bacteria Urine 1+ /LPF; Squamous Epithelial Cell Urine 3+ /LPF
[2022-05-13 18:08] LABS: WBC Urine 0-2 /HPF (0-4)
[2022-05-13 18:40] LABS: Glucose, Whole Blood 63 mg/dL (60-115)
--- NOTE | 2022-05-13 19:14 | MHC.CARE ---
Care Team attempted to contact patients daughter. However, unable to contact and unable to leave voice message. Care Team will attempt to contact patient's daughter later.
[2022-05-13 19:15] VITALS: BP 168/77; PULSE 87; RESP 17; O2SAT 97
--- NOTE | 2022-05-13 19:49 | MHC.CARE ---
Care Team support requested by ED provider for 82 year old female arrived by ambulance experiencing tactile hallucinations. Care Team reviewed medical record and records from ED visit on 05/10 at [facility] with ED provider to rule out medical causes. Per ED provider patients dtr stated that something needs to be done and will not take her back home tonight . She mentioned patients lives upstairs from her daughter, who is also her HCP. Daughter reported concerns of patient hallucinating and being delusional, she mentioned patient states seeing bugs crawling on her skin and sucking up her blood. Patients daughter contact patients therapist and he advised daughter to take patient to the emergency department. She reported in the past patient would pick at the bugs with a sewing needle. Dtr mentioned patients hallucination started in December. Daughter reports patient is deteriorating and refusing services. Daughter reports patient is very forgetful and has no cognitive evaluation. Patient struggles with depression, anxiety and currently on medication. Care Team consulted with ED provider and plan is for patient to be seen by psychiatry. Therapist: [facility] Luis Salcido ext [phone] or ext [phone] PCP: [facility] Dr. Elliott Larios
[2022-05-13 21:56] LABS: Glucose, Whole Blood 174 mg/dL (60-115)
[2022-05-13 22:00] VITALS: BP 150/91; PULSE 90; RESP 18; TEMP 36.9; O2SAT 98
--- NOTE | 2022-05-13 22:00 | PC.NURSE ---
patient diaphoretic, remains confused. Blood sugar 186, VSS. [employer] in room to re-eval, med rec completed for home med administration. Resting on stretcher at this time with no acute distress.
--- NOTE | 2022-05-13 22:06 | MHC.CM.ED ---
CM received consult. Psych consult pending. Met with patient. A&Ox3. Pt answering all CM questions. Know who her doctor and therapist is. Lives alone in a 2 family home. Her ex- and daughter live in the second apartment. Pt has no services/DME. Pt cooks,cleans and does her own ADL's. Family helps with shopping, some cooking and transportation. Pt tells CM that her daughter, Jeanette in October of a brain hemorrhage. She tells CM they were the 3 D's. Her daughters Jeanette Huggins and herself, Archana. Pt very seriously describes bugs that are biting her and sucking into her veins. States this has happened to her before, that this is the 3rd time. She tells CM she really hopes someone can help her because the bugs are hurting her and she is scared. CM suggested that perhaps this is because her daughter had recently in October and pt very clearly to told CM that she is not suppressing anything with her grief and that they are real. Pt tells CM she misses her daughter very much. Pt aware that a doctor will seen her in the morning.Pt then became pale and diaphoretic. RN notified. Will assess blood glucose and VS. Updated Kisha from CARE TEAM regarding above conversation. Will await psych consult in the morning. CM will follow.
[2022-05-14] VITALS (9 sets, daily range): BP systolic 131–167; BP diastolic 60–77; PULSE 77–86; RESP 16–18; TEMP 36.2–36.9; O2SAT 92–95
[2022-05-14] MEDS: Mirtazapine 15 MG TABLET PO ×2 (01:13→22:44)
[2022-05-14] MEDS: levETIRAcetam 500 MG TABLET PO ×3 (01:13→22:44)
[2022-05-14] MEDS: Gabapentin 100 MG CAPSULE PO ×4 (01:14→22:44)
--- NOTE | 2022-05-14 01:14 | PC.NURSE ---
Patient resting, denies pain. Took HS meds without issue.
[2022-05-14 07:11] LABS: Glucose, Whole Blood 89 mg/dL (60-115)
[2022-05-14] MEDS: amLODIPine Besylate 10 MG TABLET PO (08:22)
[2022-05-14] MEDS: Famotidine 20 MG TABLET PO (08:22)
[2022-05-14] MEDS: Sertraline HCL 100 MG TABLET PO (08:22)
[2022-05-14] MEDS: metFORMIN HCl ER 500 MG TAB.ER.24H PO (08:22)
[2022-05-14] MEDS: Atorvastatin Calcium 40 MG TABLET PO (08:22)
[2022-05-14] MEDS: Clopidogrel Bisulfate 75 MG TABLET PO (08:22)
[2022-05-14] MEDS: Loratadine 10 MG TABLET PO (08:22)
[2022-05-14] MEDS: Ezetimibe 10 MG TABLET PO (08:22)
[2022-05-14] MEDS: Insulin Glargine,Hum.rec.anlog 100 UNIT/ML 10 ML VIAL 47 UNIT SUBCUT (08:31)
--- NOTE | 2022-05-14 16:04 | PM.PSYCN ---
History of Present Illness Date of Service: 05/14/2022 Chief Complaint: Tactile hallucinations Reason for Consult: delusional parasitosis Requesting physician: Megan Larry Discussed with referring provider: Yes Sources of Information: patient interviewed, chart reviewed and crisis/core team assessment reviewed Additional Sources of Information: Melissa levin [phone] HPI Narrative: Ms. Ybarra is a 82 year-old woman with hx of DM, HTN, right sided radial nerve palsy who was brought by daughter, Yanna to [facility] due to worsening delusions of bugs crawling into her skin for about 2 months. This pt is known to this medical technical writer through one previous assessment for similar concern at another hospital. Utox not completed on admission but pt does have hx of using cannabis almost daily for several years. Per daughter, pt continues to report that she feels bugs crawling inside of her skin and causing pain and becoming more and more agitated when told that others can't see them. She reports she can see them as well. Pt presents as very overwhelmed and frustrated as she states nurses are laughing about me, no one wants to help. Pt reports scratching with sawing needles trying to get the bugs out. She also reports she is tiding scotch tape around forearm to prevent bugs from spreading all over her body. Pt denies SI/HI. However, she reports she is tired of living this way. Past Psychiatric History: Inpatient: none OP: [facility] Counseling- prescriber Luis ([phone]: [phone]) Past medication trials: seroquel, sertraline, wellbutrin Medical Evaluation Reviewed: Yes Diagnostics Vital Signs (24Hr): Vital Signs - 24 hr 05/13/22 19:15 05/13/22 22:00 05/14/22 01:17 Temperature 98.4 F 97.2 F Pulse Rate 87 90 86 Respiratory Rate 17 18 18 Blood Pressure 168/77 H 150/91 H 160/77 H Pulse Oximetry 97 98 93 Oxygen Delivery Method Room Air Room Air Room Air 05/14/22 02:41 05/14/22 04:00 05/14/22 05:55 Temperature Pulse Rate 86 81 79 Respiratory Rate Blood Pressure 150/63 H 152/66 H 131/65 Pulse Oximetry 93 93 92 Oxygen Delivery Method Room Air Room Air Room Air 05/14/22 07:34 05/14/22 10:42 05/14/22 12:28 Temperature 98.1 F 98.5 F 98.3 F Pulse Rate 80 81 77 Respiratory Rate 16 16 16 Blood Pressure 167/74 H 133/60 145/72 H Pulse Oximetry 93 93 95 Oxygen Delivery Method Room Air Room Air Room Air 05/14/22 15:56 Temperature 98.3 F Pulse Rate 82 Respiratory Rate 16 Blood Pressure 140/76 H Pulse Oximetry 94 Oxygen Delivery Method Room Air BMI result Body Mass Index 25.9 Labs Results: 05/13/22 14:38 05/13/22 14:38 Labs: Laboratory Results - last 48 hr 05/13/22 05/13/22 05/13/22 14:38 14:38 14:38 WBC 9.3 RBC 4.91 Hgb 13.6 Hct 43.1 MCV 87.8 MCH 27.7 MCHC 31.6 RDW 16.7 H Plt Count 373 MPV 9.2 L Immature Gran % (Auto) 0.3 Neut % (Auto) 54.3 Lymph % (Auto) 35.1 Pender % (Auto) 8.0 Eos % (Auto) 1.9 Baso % (Auto) 0.4 Lymph # (Auto) 3.3 Pender # (Auto) 0.7 Eos # (Auto) 0.2 Baso # (Auto) 0.0 Abs Immat Gran (auto) 0.03 Absolute Neuts (auto) 5.0 Absolute Nucleated RBC 0.000 Nucleated RBC % (auto) 0.0 Sodium 145 Potassium 3.4 Chloride 106 Carbon Dioxide 28 Anion Gap 14 BUN 15 Creatinine 0.92 Estim Creat Clear Calc 34.0 Estimated GFR 59 POC Glucose Random Glucose 65 Calcium 8.8 Magnesium 1.6 Total Bilirubin 0.6 AST 33 H ALT 31 Alkaline Phosphatase 105 Troponin I High Sens < 3.5 Total Protein 6.7 Albumin 4.2 Urine Color Urine Appearance Urine pH Ur Specific [place] Urine Protein Urine Glucose (UA) Urine Ketones Urine Blood Urine Nitrite Ur Leukocyte Esterase Urine RBC Urine WBC Ur Squamous Epith Cells Urine Bacteria Salicylates < 5.0 L Acetaminophen 3 COVID-19 ([facility]) COVID-19 Clin Com Influenza Type A (RICK) Influenza Type B (RICK) Influenza A & B Note 05/13/22 05/13/22 05/13/22 14:38 14:38 17:43 WBC RBC Hgb Hct MCV MCH MCHC RDW Plt Count MPV Immature Gran % (Auto) Neut % (Auto) Lymph % (Auto) Pender % (Auto) Eos % (Auto) Baso % (Auto) Lymph # (Auto) Pender # (Auto) Eos # (Auto) Baso # (Auto) Abs Immat Gran (auto) Absolute Neuts (auto) Absolute Nucleated RBC Nucleated RBC % (auto) Sodium Potassium Chloride Carbon Dioxide Anion Gap BUN Creatinine Estim Creat Clear Calc Estimated GFR POC Glucose Random Glucose Calcium Magnesium Total Bilirubin AST ALT Alkaline Phosphatase Troponin I High Sens Total Protein Albumin Urine Color YELLOW Urine Appearance CLEAR Urine pH 6.0 Ur Specific [place] 1.025 Urine Protein NEG Urine Glucose (UA) NEG Urine Ketones NEG Urine Blood NEG Urine Nitrite NEG Ur Leukocyte Esterase TRACE H Urine RBC 15-29 H Urine WBC 0-2 Ur Squamous Epith Cells 3+ Urine Bacteria 1+ Salicylates Acetaminophen COVID-19 ([facility]) Negative COVID-19 Clin Com See Note Influenza Type A (RICK) Negative Influenza Type B (RICK) Negative Influenza A & B Note See Note 05/13/22 05/13/22 05/14/22 18:30 21:50 07:06 WBC RBC Hgb Hct MCV MCH MCHC RDW Plt Count MPV Immature Gran % (Auto) Neut % (Auto) Lymph % (Auto) Pender % (Auto) Eos % (Auto) Baso % (Auto) Lymph # (Auto) Pender # (Auto) Eos # (Auto) Baso # (Auto) Abs Immat Gran (auto) Absolute Neuts (auto) Absolute Nucleated RBC Nucleated RBC % (auto) Sodium Potassium Chloride Carbon Dioxide Anion Gap BUN Creatinine Estim Creat Clear Calc Estimated GFR POC Glucose 63 174 H 89 Random Glucose Calcium Magnesium Total Bilirubin AST ALT Alkaline Phosphatase Troponin I High Sens Total Protein Albumin Urine Color Urine Appearance Urine pH Ur Specific [place] Urine Protein Urine Glucose (UA) Urine Ketones Urine Blood Urine Nitrite Ur Leukocyte Esterase Urine RBC Urine WBC Ur Squamous Epith Cells Urine Bacteria Salicylates Acetaminophen COVID-19 ([facility]) COVID-19 Clin Com Influenza Type A (RICK) Influenza Type B (RICK) Influenza A & B Note Imaging Radiology Impressions: ITS Impressions Chest X-Ray 05/13/22 14:29 IMPRESSION: No acute intrathoracic disease. Head CT 05/13/22 14:30 IMPRESSION: No acute intracranial pathology. Mental Status Exam Mental Status Exam Narrative: Appearance: wearing hospital gown, thin, fair hygiene in NAD Behavior:fearful, overwhelmed by delusions psychomotor:no overt agitation or retardation noted Speech:clear, normal rate/rhythm/volume, spontaneous Thought process: repetitive- re: delusional parasitosis. Thought content:overwhelmed by ideas that bugs are invading her body, damaging all her organs Mood: overwhelmed Affect: congruent, distressed, fearful SI:none HI:none VH/AH:none Delusions:delusional paracitosis Insight/judgment:impaired x 2. Memory/cog: alert, not oriented to situation, but oriented to place, month, not date. Pending MOCA. Medications Medications Current Medications Amlodipine Besylate (Amlodipine Besylate 10 Mg Tablet) 10 mg PO DAILY [facility]; Protocol Last Admin: 05/14/22 08:22 Dose: 10 mg Atorvastatin Calcium (Atorvastatin Calcium 40 Mg Tablet) 40 mg PO DAILY [facility] Last Admin: 05/14/22 08:22 Dose: 40 mg Cefuroxime Axetil (Cefuroxime Axetil 250 Mg Tablet) 250 mg PO BID [facility] Stop: 05/21/22 14:44 Clopidogrel Bisulfate (Clopidogrel Bisulfate 75 Mg Tablet) 75 mg PO DAILY [facility] Last Admin: 05/14/22 08:22 Dose: 75 mg Ezetimibe (Ezetimibe 10 Mg Tablet) 10 mg PO DAILY [facility] Last Admin: 05/14/22 08:22 Dose: 10 mg Famotidine (Famotidine 20 Mg Tablet) 20 mg PO DAILY [facility] Last Admin: 05/14/22 08:22 Dose: 20 mg Gabapentin (Gabapentin 100 Mg Capsule) 100 mg PO TID [facility] Last Admin: 05/14/22 08:22 Dose: 100 mg Insulin Glargine (Insulin Glargine,Hum.Rec.Anlog 100 Unit/Ml 10 Ml Vial) 47 unit SUBCUT DAILY [facility] Last Admin: 05/14/22 08:31 Dose: 47 unit Levetiracetam (Levetiracetam 500 Mg Tablet) 500 mg PO BID [facility] Last Admin: 05/14/22 08:22 Dose: 500 mg Loratadine (Loratadine 10 Mg Tablet) 10 mg PO DAILY [facility] Last Admin: 05/14/22 08:22 Dose: 10 mg Lorazepam (Lorazepam 0.5 Mg Tablet) 0.25 mg PO BID [facility] Metformin HCl (Metformin Hcl Er 500 Mg Tab.Er.24h) 500 mg PO DAILY@0800 [facility] Last Admin: 05/14/22 08:22 Dose: 500 mg Mirtazapine (Mirtazapine 15 Mg Tablet) 15 mg PO BEDTIME [facility] Last Admin: 05/14/22 01:13 Dose: 15 mg Pt Own (Bupropion Hcl 100 Mg Tablet Sustained-Release 12 Hr) 1 tab PO DAILY [facility] Pharmacy Consult (Consult Rx Perform Med Rec) 1 each MISCELLANE ONCE PRN PRN Reason: Consult order Risperidone (Risperidone 0.5 Mg Tablet) 0.5 mg PO BID [facility] Sertraline HCl (Sertraline Hcl 100 Mg Tablet) 100 mg PO DAILY [facility] Last Admin: 05/14/22 08:22 Dose: 100 mg Tramadol HCl (Tramadol Hcl 50 Mg Tablet) 50 mg PO Q8H PRN PRN Reason: Pain, Moderate (Pain Scale 4-6 Allergies Allergies Allergy/AdvReac Type Severity Reaction Status Date / Time Sulfa (Sulfonamide Allergy Hives Verified 05/13/22 11:29 Antibiotics) codeine AdvReac Gastrointestinal Verified 05/13/22 11:29 Upset Assessment & Plan Assessment & Plan (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 I recommend inpatient jose c psych for further stabilization, containment and safety. 2. Start risperidone 0.5mg po BID and ativan 0.25mg po BID, monitor EKG, maintain Qtc <500ms, maintain K>4, Mg >2. Pt does have hx of Qtc prolongation, please monitor closely. 3. Dc wellbutrin as it may worsen psychosis at this point. continue sertraline for now. I spent _25 minutes with the patient and/or on the patient floor today, greater than?50% of which was spent counseling/coordinating care.
[2022-05-14] MEDS: LORazepam 0.5 MG TABLET 0.25 MG PO ×2 (16:43→22:44)
[2022-05-14] MEDS: risperiDONE 0.5 MG TABLET PO ×2 (16:44→22:44)
--- NOTE | 2022-05-14 17:42 | MHC.CARE ---
LOGAN hughes submitted
[2022-05-14 18:43] LABS: Glucose, Whole Blood 83 mg/dL (60-115)
[2022-05-15 04:00] VITALS: BP 147/74; PULSE 77; RESP 16; TEMP 36.8; O2SAT 95
[2022-05-15 06:00] VITALS: BP 145/70; PULSE 76; RESP 16; TEMP 36.7; O2SAT 96
[2022-05-15 07:20] LABS: Glucose, Whole Blood 84 mg/dL (60-115)
[2022-05-15 07:59] VITALS: BP 135/70; PULSE 81; RESP 16; O2SAT 93
[2022-05-15] MEDS: Ezetimibe 10 MG TABLET PO (08:00)
[2022-05-15] MEDS: Sertraline HCL 100 MG TABLET PO (08:00)
[2022-05-15] MEDS: levETIRAcetam 500 MG TABLET PO ×2 (08:00→20:02)
[2022-05-15] MEDS: Atorvastatin Calcium 40 MG TABLET PO (08:00)
[2022-05-15] MEDS: Gabapentin 100 MG CAPSULE PO ×3 (08:00→20:01)
[2022-05-15] MEDS: metFORMIN HCl ER 500 MG TAB.ER.24H PO (08:00)
[2022-05-15] MEDS: Insulin Glargine,Hum.rec.anlog 100 UNIT/ML 10 ML VIAL 47 UNIT SUBCUT (08:01)
[2022-05-15] MEDS: LORazepam 0.5 MG TABLET 0.25 MG PO ×2 (08:01→20:01)
[2022-05-15] MEDS: Famotidine 20 MG TABLET PO (08:01)
[2022-05-15] MEDS: amLODIPine Besylate 10 MG TABLET PO (08:01)
[2022-05-15] MEDS: Loratadine 10 MG TABLET PO (08:01)
[2022-05-15] MEDS: risperiDONE 0.5 MG TABLET PO ×2 (08:01→20:01)
[2022-05-15] MEDS: Clopidogrel Bisulfate 75 MG TABLET PO (08:01)
[2022-05-15] MEDS: traMADoL HCL 50 MG TABLET 25 MG PO (10:52)
--- NOTE | 2022-05-15 11:31 | ECG_ITS ---
Test Reason : medical clearence Blood Pressure : / mmHG Vent. Rate : 080 BPM Atrial Rate : 080 BPM P-R Int : 138 ms QRS Dur : 062 ms QT Int : 386 ms P-R-T Axes : 056 029 051 degrees QTc Int : 445 ms Normal sinus rhythm Normal ECG When compared with ECG of 13-MAY-2022 14:36, No significant change was found Referred By: Karyn Cotto Electronically Signed By:MADDI FERNANDEZ MD
[2022-05-15 11:57] LABS: COVID-19 Test Negative (Negative); IDNOW Serial# 16C4AD1C
[2022-05-15 14:56] VITALS: BP 155/59; PULSE 60; RESP 18; TEMP 36.9; O2SAT 100; BMI 21.5
[2022-05-15] MEDS: hydrOXYzine HCL 25 MG TABLET PO (16:15)
[2022-05-15 16:57] VITALS: BP 145/67; PULSE 80; RESP 17; TEMP 36.8; O2SAT 95
--- NOTE | 2022-05-15 17:27 | PC.ADMIT ---
Patient admitted to unit at 1450 from ED. Arrived via . Patient wearing hospital attire. Appears stated age. Neatly groomed. Alert and oriented x4.Makes good eye contact. Memory and concentration are intact. Mood is anxious. Patient signed CV in ED. Patient admitted to ED by daughter (HCP) secondary to experiencing delusions of bugs crawling into her skin. Patient states, They are very tiny but I can see them when they come to the surface. They come through the skin and suck the vein up. Patient has bruised area to L wrist circled with blue pen to indicate where the bugs have been and to determine if it is getting worse. Patient was tearful and guarded during admission process stating, I don't want to say anything because other nurses have made fun of me. Patient was assured that TW would not do that and provided information. Patient experienced a fall at home approximately 3 weeks ago in which she fractured her R wrist and dislocated her R shoulder. Gait is unsteady and walker is used. Patient medical history includes Diabetes, HTN, COPD, GERD, Chronic Back Pain, R sided radial nerve palsy. Patient uses O2 at 2L at night per daughter. Meds were verified in the hospital ED. Patient was oriented to the unit. Observed having dinner in the dining area with other patients. PCP will be notified during regular business hours.
[2022-05-15 18:00] VITALS: BP 156/70; PULSE 73; RESP 20; TEMP 36.8; O2SAT 96
[2022-05-15] MEDS: Mirtazapine 15 MG TABLET PO (20:01)
[2022-05-16 06:00] VITALS: BP 136/74; PULSE 73; RESP 18; TEMP 36.6; O2SAT 96
[2022-05-16 07:00] VITALS: BMI 25.8
[2022-05-16 09:03] LABS: Alanine Aminotransferase 27 U/L (0-31); Albumin Level 3.7 g/dL (3.5-5.0); Alkaline Phosphatase 92 U/L (39-117); Anion Gap 14 (12-20); Aspartate Amino Transferase 31 U/L (5-31); Bilirubin Total 0.5 mg/dL (0.0-1.0); Blood Urea Nitrogen 21 mg/dL (9-16); Calcium 8.8 mg/dL (8.4-10.2); Carbon Dioxide 27 mmol/L (22-29); Chloride 107 mmol/L (96-108); Cholesterol 134 mg/dL; Creatinine Clr Calc Pharmacy 25.1; Estimated Glomerular Filt Rate 49; Glucose Fasting 116 mg/dL (60-99); HDL Cholesterol 48 mg/dL; LDL Cholesterol Calculated 66 mg/dl; Potassium 4.5 mmol/L (3.3-5.1); Sodium 143 mmol/L (135-145); Total Protein 5.8 g/dL (6.5-8.0); Triglycerides 103 mg/dL
[2022-05-16] MEDS: Insulin Glargine,Hum.rec.anlog 100 UNIT/ML 10 ML VIAL 47 UNIT SUBCUT (09:04)
[2022-05-16] MEDS: LORazepam 0.5 MG TABLET 0.25 MG PO ×3 (09:06→20:44)
[2022-05-16] MEDS: metFORMIN HCl ER 500 MG TAB.ER.24H PO (09:06)
[2022-05-16] MEDS: amLODIPine Besylate 10 MG TABLET PO (09:08)
[2022-05-16] MEDS: levETIRAcetam 500 MG TABLET PO ×2 (09:08→20:44)
[2022-05-16] MEDS: Clopidogrel Bisulfate 75 MG TABLET PO (09:09)
[2022-05-16] MEDS: Loratadine 10 MG TABLET PO (09:09)
[2022-05-16] MEDS: Sertraline HCL 100 MG TABLET PO (09:09)
[2022-05-16] MEDS: risperiDONE 0.5 MG TABLET PO ×2 (09:09→20:46)
[2022-05-16] MEDS: Atorvastatin Calcium 40 MG TABLET PO (09:09)
[2022-05-16] MEDS: Gabapentin 100 MG CAPSULE PO ×3 (09:09→20:47)
[2022-05-16] MEDS: Famotidine 20 MG TABLET PO (09:09)
[2022-05-16] MEDS: Ezetimibe 10 MG TABLET PO (09:09)
[2022-05-16 10:20] LABS: Amphetamine Screen Urine Not Detected (Not Detect); Barbiturates, Urine Not Detected (Not Detect); Benzodiazepines Screen Urine Not Detected (Not Detect); Cannabinoid Screen Urine POSITIVE (Not Detect); Cocaine Screen Urine Not Detected (Not Detect); Fentanyl, urine POSITIVE (Not Detect); Opiate Screen Urine Not Detected (Not Detect); Phencyclidine Screen Urine Not Detected (Not Detect)
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
[2022-05-16] MEDS: hydrOXYzine HCL 25 MG TABLET 12.5 MG PO ×2 (14:56→20:48)
[2022-05-16 18:00] VITALS: BP 118/56; PULSE 78; RESP 16; TEMP 36.7; O2SAT 97
[2022-05-16] MEDS: Hydrocortisone 1 % Cream 28.35 GM TUBE 1 APPL TOPICAL (20:43)
[2022-05-16] MEDS: Mirtazapine 15 MG TABLET PO (20:49)
[2022-05-17 06:00] VITALS: BP 144/69; PULSE 87; RESP 16; TEMP 36.5; O2SAT 95
[2022-05-17] MEDS: Atorvastatin Calcium 40 MG TABLET PO (10:26)
[2022-05-17] MEDS: amLODIPine Besylate 10 MG TABLET PO (10:26)
[2022-05-17] MEDS: Insulin Glargine,Hum.rec.anlog 100 UNIT/ML 10 ML VIAL 47 UNIT SUBCUT (10:26)
[2022-05-17] MEDS: hydrOXYzine HCL 25 MG TABLET 12.5 MG PO ×3 (10:27→20:38)
[2022-05-17] MEDS: LORazepam 0.5 MG TABLET 0.25 MG PO ×3 (10:27→20:37)
[2022-05-17] MEDS: Loratadine 10 MG TABLET PO (10:27)
[2022-05-17] MEDS: Sertraline HCL 100 MG TABLET PO (10:27)
[2022-05-17] MEDS: risperiDONE 0.5 MG TABLET PO ×2 (10:27→20:39)
[2022-05-17] MEDS: Gabapentin 100 MG CAPSULE PO ×3 (10:28→20:39)
[2022-05-17] MEDS: Famotidine 20 MG TABLET PO (10:28)
[2022-05-17] MEDS: Ezetimibe 10 MG TABLET PO (10:28)
[2022-05-17] MEDS: Clopidogrel Bisulfate 75 MG TABLET PO (10:28)
[2022-05-17] MEDS: metFORMIN HCl ER 500 MG TAB.ER.24H PO (10:28)
[2022-05-17] MEDS: levETIRAcetam 500 MG TABLET PO ×2 (10:28→20:39)
[2022-05-17 10:43] LABS: Glucose, Whole Blood 289 mg/dL (60-115)
[2022-05-17 11:23] VITALS: BP 118/56; PULSE 78; O2SAT 97
--- NOTE | 2022-05-17 12:08 | HO.PSYCHPN ---
Subjective Subjective Date of Service: 05/17/22 Reason For Visit: Tactile hallucinations Subjective Notes: Conditional Voluntary Interim History: The nursing staff reported the patient is on one-to-one at night since she has oxygen. She has not attend to groups, she remains tearful in the morning. She has been isolative with poor sleep. According to the chart he has history of several strokes. Also she has pain on her wrist after a fall, according to the ED department, she had a fracture her wrist but it does not seem fracture so we will order a new x-ray. On interview the patient reports some anxiety and confusion.. Mental Status Exam Mental Status Exam Patient Appearance: Well Grooomed Patient Orientation: Person and Situation Level of Consciousness: Awake Patient Behavior: Appropriate and Guarded Mood Description: Withdrawn Affect Description: Labile Patient Cognition Impaired: Yes Ability to Follow Directions: Good Speech Pattern: Clear Hallucinations: None Delusions: Ideas of Reference Thought Process: Distracted and Evasive Thought Content: positive for [place] and positive for Circumstantial Judgement: Fair Diagnostics Vital Signs (24Hr): Vital Signs - 24 hr 05/16/22 18:00 05/17/22 11:23 05/17/22 06:00 Temperature 98.0 F 97.7 F Pulse Rate 78 78 87 Respiratory Rate 16 16 Blood Pressure 118/56 L 118/56 L 144/69 H Pulse Oximetry 97 97 95 Oxygen Delivery Method Room Air Room Air 05/17/22 06:00 Temperature 97.7 F Pulse Rate 87 Respiratory Rate Blood Pressure 144/69 H Pulse Oximetry 95 Oxygen Delivery Method Room Air BMI result Body Mass Index 25.8 Labs Results: 05/13/22 14:38 05/16/22 07:51 Labs: Laboratory Results - last 48 hr 05/16/22 05/16/22 05/17/22 07:51 09:30 10:24 Sodium 143 Potassium 4.5 D Chloride 107 Carbon Dioxide 27 Anion Gap 14 BUN 21 H Creatinine 1.07 Estim Creat Clear Calc 25.1 Estimated GFR 49 POC Glucose 289 H Fasting Glucose 116 H Calcium 8.8 Total Bilirubin 0.5 AST 31 ALT 27 Alkaline Phosphatase 92 Total Protein 5.8 L Albumin 3.7 Triglycerides 103 Cholesterol 134 LDL Cholesterol, Calc 66 HDL Cholesterol 48 Urine Opiates Screen Not Detected Urine Fentanyl Screen POSITIVE H Ur Barbiturates Screen Not Detected Ur Phencyclidine Scrn Not Detected Ur Amphetamines Screen Not Detected U Benzodiazepines Scrn Not Detected Urine Cocaine Screen Not Detected U Marijuana (THC) Screen POSITIVE H Imaging Radiology Impressions: ITS Impressions Chest X-Ray 05/13/22 14:29 IMPRESSION: No acute intrathoracic disease. Head CT 05/13/22 14:30 IMPRESSION: No acute intracranial pathology. Medications Medications Current Medications Acetaminophen (Acetaminophen 325 Mg Tablet) 975 mg PO Q6H PRN PRN Reason: mild pain, Al Hydroxide/Mg Hydroxide (Magnesium Hydrox/Alum Hydrox 30 Ml Oral.Susp) 30 ml PO Q6H PRN PRN Reason: Heartburn/Nausea Amlodipine Besylate (Amlodipine Besylate 10 Mg Tablet) 10 mg PO DAILY [facility]; Protocol Last Admin: 05/17/22 10:26 Dose: 10 mg Atorvastatin Calcium (Atorvastatin Calcium 40 Mg Tablet) 40 mg PO DAILY [facility] Last Admin: 05/17/22 10:26 Dose: 40 mg Cefuroxime Axetil (Cefuroxime Axetil 250 Mg Tablet) 250 mg PO BID [facility] Stop: 05/21/22 14:44 Last Admin: 05/17/22 10:27 Dose: 250 mg Clopidogrel Bisulfate (Clopidogrel Bisulfate 75 Mg Tablet) 75 mg PO DAILY [facility] Last Admin: 05/17/22 10:28 Dose: 75 mg Ezetimibe (Ezetimibe 10 Mg Tablet) 10 mg PO DAILY [facility] Last Admin: 05/17/22 10:28 Dose: 10 mg Famotidine (Famotidine 20 Mg Tablet) 20 mg PO DAILY [facility] Last Admin: 05/17/22 10:28 Dose: 20 mg Gabapentin (Gabapentin 100 Mg Capsule) 100 mg PO TID [facility] Last Admin: 05/17/22 10:28 Dose: 100 mg Hydrocortisone (Hydrocortisone 1 % Cream 28.35 Gm Tube) 1 appl TOPICAL BID [facility]; Protocol Last Admin: 05/16/22 20:43 Dose: 1 appl Hydroxyzine HCl (Hydroxyzine Hcl 25 Mg Tablet) 12.5 mg PO TID [facility] Last Admin: 05/17/22 10:27 Dose: 12.5 mg Insulin Glargine (Insulin Glargine,Hum.Rec.Anlog 100 Unit/Ml 10 Ml Vial) 47 unit SUBCUT DAILY [facility] Last Admin: 05/17/22 10:26 Dose: 47 unit Levetiracetam (Levetiracetam 500 Mg Tablet) 500 mg PO BID [facility] Last Admin: 05/17/22 10:28 Dose: 500 mg Loratadine (Loratadine 10 Mg Tablet) 10 mg PO DAILY [facility] Last Admin: 05/17/22 10:27 Dose: 10 mg Lorazepam (Lorazepam 0.5 Mg Tablet) 0.25 mg PO BID [facility] Last Admin: 05/17/22 10:27 Dose: 0.25 mg Lorazepam (Lorazepam 0.5 Mg Tablet) 0.25 mg PO Q6H PRN PRN Reason: anxiety Last Admin: 05/16/22 17:19 Dose: 0.25 mg Magnesium Hydroxide (Milk Of Magnesia 30 Ml Oral.Susp) 30 ml PO DAILY PRN PRN Reason: Constipation Metformin HCl (Metformin Hcl Er 500 Mg Tab.Er.24h) 500 mg PO DAILY@0800 [facility] Last Admin: 05/17/22 10:28 Dose: 500 mg Mirtazapine (Mirtazapine 15 Mg Tablet) 15 mg PO BEDTIME [facility] Last Admin: 05/16/22 20:49 Dose: 15 mg Risperidone (Risperidone 0.5 Mg Tablet) 0.5 mg PO BID [facility] Last Admin: 05/17/22 10:27 Dose: 0.5 mg Sertraline HCl (Sertraline Hcl 100 Mg Tablet) 100 mg PO DAILY [facility] Last Admin: 05/17/22 10:27 Dose: 100 mg Tramadol HCl (Tramadol Hcl 50 Mg Tablet) 25 mg PO Q8H PRN PRN Reason: Pain, Moderate (Pain Scale 4-6 Last Admin: 05/15/22 10:52 Dose: 25 mg Trazodone HCl (Trazodone Hcl 50 Mg Tablet) 50 mg PO BEDTIME PRN PRN Reason: Insomnia Allergies Allergies Allergy/AdvReac Type Severity Reaction Status Date / Time Sulfa (Sulfonamide Allergy Hives Verified 05/13/22 11:29 Antibiotics) codeine AdvReac Gastrointestinal Verified 05/13/22 11:29 Upset Assessment & Plan Assessment & Plan (1) Cognitive impairment: Status: Acute Code(s): R41.89 - Other symptoms and signs involving cognitive functions and awareness (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 Plan 1. Gather collateral information. 2. Continue antidepressants. 3. Continue antibiotics. 4. Continue antipsychotics I spent ___20___ minutes with the patient and/or on the patient floor today, greater than?50% of which was spent counseling/coordinating care. Reason for contiued inpatient stay Substantial Risk for: inability to function, rapid decompensation and med/psych decompensation
[2022-05-17] MEDS: traMADoL HCL 50 MG TABLET 25 MG PO (13:27)
[2022-05-17] MEDS: Hydrocortisone 1 % Cream 28.35 GM TUBE 1 APPL TOPICAL (13:33)
[2022-05-17 20:15] VITALS: BP 122/69; PULSE 95; RESP 16; TEMP 36.4; O2SAT 98
[2022-05-17] MEDS: Acetaminophen 325 MG TABLET 975 MG PO (20:36)
[2022-05-17] MEDS: Mirtazapine 15 MG TABLET PO (20:38)
[2022-05-17 20:52] VITALS: O2SAT 98
[2022-05-18 06:00] VITALS: BP 173/74; PULSE 82; RESP 16; TEMP 36.8; O2SAT 96
[2022-05-18] MEDS: Insulin Glargine,Hum.rec.anlog 100 UNIT/ML 10 ML VIAL 47 UNIT SUBCUT (08:29)
[2022-05-18] MEDS: LORazepam 0.5 MG TABLET 0.25 MG PO ×2 (08:30→20:11)
[2022-05-18] MEDS: levETIRAcetam 500 MG TABLET PO ×2 (08:31→20:11)
[2022-05-18] MEDS: hydrOXYzine HCL 25 MG TABLET 12.5 MG PO ×3 (08:32→20:11)
[2022-05-18] MEDS: Famotidine 20 MG TABLET PO (08:32)
[2022-05-18] MEDS: Loratadine 10 MG TABLET PO (08:33)
[2022-05-18] MEDS: Ezetimibe 10 MG TABLET PO (08:33)
[2022-05-18] MEDS: Gabapentin 100 MG CAPSULE PO ×3 (08:33→20:11)
[2022-05-18] MEDS: metFORMIN HCl ER 500 MG TAB.ER.24H PO (08:33)
[2022-05-18] MEDS: Clopidogrel Bisulfate 75 MG TABLET PO (08:33)
[2022-05-18] MEDS: Sertraline HCL 100 MG TABLET PO (08:34)
[2022-05-18] MEDS: risperiDONE 0.5 MG TABLET PO ×2 (08:34→20:11)
[2022-05-18] MEDS: Atorvastatin Calcium 40 MG TABLET PO (08:34)
[2022-05-18] MEDS: amLODIPine Besylate 10 MG TABLET PO (08:34)
[2022-05-18] MEDS: traMADoL HCL 50 MG TABLET 25 MG PO ×2 (11:56→20:14)
[2022-05-18 14:17] VITALS: BP 128/58; PULSE 74
--- NOTE | 2022-05-18 15:18 | P.PNPSI_ITS ---
Subjective Subjective Date of Service: 05/18/22 Reason For Visit: Tactile hallucinations Interim History: Patient seen and discussed with RN. Patient is anxious and preoccupied with bugs on her left hand and on rght arm. 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 She then points to a bruise on her right arm and says it was caused by a bug. Proceeds to talk about bugs biting at a scab she had had in the past. Xray hand not read yet. Review of Systems Review of Systems Yes all other systems are reviewed and are negative (Besides pruritus) Constitutional: Reports no additional constitutional complaints, Denies chills, Denies fever(s) and Denies night sweats Eyes: Reports no additional eye complaints, Denies blurry vision, Denies change in vision, Denies diplopia, Denies eye discharge, Denies loss of vision and Denies eye pain Denies dizziness Cardiovascular: Reports no additional cardiovascular complaints, Denies chest pain, Denies lightheadedness, Denies Loss of Consciousness and Denies dyspnea Respiratory: Reports no additional respiratory complaints and Denies dyspnea Gastrointestinal: Reports no additional gastrointestinal complaints, Denies abdominal pain, Denies melena, Denies hematochezia, Denies change in bowel habits and Denies change in stool character Musculoskeletal: Reports no additional musculoskeletal complaints, Denies numbness and Denies tingling Denies dizziness, Denies loss of vision, Denies numbness and Denies tingling Psychiatric: Reports no additional psychiatric complaints and Reports visual hallucinations Endocrine: Reports no additional endocrine complaints Hematologic/Lymphatic: Reports no additional hematologic/lymphatic complaints Allergic/Immunologic: Reports no additional allergic/immunologic complaints Mental Status Exam Mental Status Exam Narrative: Appearance: wearing hospital gown, thin, fair hygiene in NAD Behavior:fearful, overwhelmed by delusions psychomotor:no overt agitation or retardation noted Speech:clear, normal rate/rhythm/volume, spontaneous Thought process: repetitive- re: delusional parasitosis. Thought content:overwhelmed by ideas that bugs are invading her body, damaging all her organs Mood: overwhelmed Affect: congruent, distressed, fearful SI:none HI:none VH/AH:none Delusions:delusional paracitosis Insight/judgment:impaired x 2. Memory/cog: alert, not oriented to situation, but oriented to place, month, not date. Pending MOCA. Patient Appearance: Well Grooomed Patient Orientation: Person and Situation Level of Consciousness: Awake Patient Behavior: Appropriate and Guarded Mood Description: Withdrawn Affect Description: Labile Patient Cognition Impaired: Yes Ability to Follow Directions: Good Speech Pattern: Clear Diagnostics Vital Signs (24Hr): Vital Signs - 24 hr 05/17/22 20:52 05/17/22 20:15 05/18/22 06:00 Temperature 97.6 F 98.2 F Pulse Rate 95 82 Respiratory Rate 16 16 Blood Pressure 122/69 173/74 H Pulse Oximetry 98 98 96 Oxygen Delivery Method Nasal Cannula Room Air Room Air 05/18/22 14:17 Temperature Pulse Rate 74 Respiratory Rate Blood Pressure 128/58 L Pulse Oximetry Oxygen Delivery Method BMI result Body Mass Index 25.8 Labs Results: 05/13/22 14:38 05/16/22 07:51 Labs: Laboratory Results - last 48 hr 05/17/22 10:24 POC Glucose 289 H Imaging Radiology Impressions: ITS Impressions Chest X-Ray 05/13/22 14:29 IMPRESSION: No acute intrathoracic disease. Head CT 05/13/22 14:30 IMPRESSION: No acute intracranial pathology. Medications Medications Current Medications Acetaminophen (Acetaminophen 325 Mg Tablet) 975 mg PO Q6H PRN PRN Reason: mild pain, Last Admin: 05/17/22 20:36 Dose: 975 mg Al Hydroxide/Mg Hydroxide (Magnesium Hydrox/Alum Hydrox 30 Ml Oral.Susp) 30 ml PO Q6H PRN PRN Reason: Heartburn/Nausea Amlodipine Besylate (Amlodipine Besylate 10 Mg Tablet) 10 mg PO DAILY [facility]; Protocol Last Admin: 05/18/22 08:34 Dose: 10 mg Atorvastatin Calcium (Atorvastatin Calcium 40 Mg Tablet) 40 mg PO DAILY [facility] Last Admin: 05/18/22 08:34 Dose: 40 mg Cefuroxime Axetil (Cefuroxime Axetil 250 Mg Tablet) 250 mg PO BID [facility] Stop: 05/21/22 14:44 Last Admin: 05/18/22 08:32 Dose: 250 mg Clopidogrel Bisulfate (Clopidogrel Bisulfate 75 Mg Tablet) 75 mg PO DAILY [facility] Last Admin: 05/18/22 08:33 Dose: 75 mg Ezetimibe (Ezetimibe 10 Mg Tablet) 10 mg PO DAILY [facility] Last Admin: 05/18/22 08:33 Dose: 10 mg Famotidine (Famotidine 20 Mg Tablet) 20 mg PO DAILY [facility] Last Admin: 05/18/22 08:32 Dose: 20 mg Gabapentin (Gabapentin 100 Mg Capsule) 100 mg PO TID [facility] Last Admin: 05/18/22 14:33 Dose: 100 mg Hydrocortisone (Hydrocortisone 1 % Cream 28.35 Gm Tube) 1 appl TOPICAL BID [facility]; Protocol Last Admin: 05/18/22 09:33 Dose: Not Given Hydroxyzine HCl (Hydroxyzine Hcl 25 Mg Tablet) 12.5 mg PO TID [facility] Last Admin: 05/18/22 14:32 Dose: 12.5 mg Insulin Glargine (Insulin Glargine,Hum.Rec.Anlog 100 Unit/Ml 10 Ml Vial) 47 unit SUBCUT DAILY [facility] Last Admin: 05/18/22 08:29 Dose: 47 unit Levetiracetam (Levetiracetam 500 Mg Tablet) 500 mg PO BID [facility] Last Admin: 05/18/22 08:31 Dose: 500 mg Loratadine (Loratadine 10 Mg Tablet) 10 mg PO DAILY [facility] Last Admin: 05/18/22 08:33 Dose: 10 mg Lorazepam (Lorazepam 0.5 Mg Tablet) 0.25 mg PO BID [facility] Last Admin: 05/18/22 08:30 Dose: 0.25 mg Lorazepam (Lorazepam 0.5 Mg Tablet) 0.25 mg PO Q6H PRN PRN Reason: anxiety Last Admin: 05/17/22 13:29 Dose: 0.25 mg Magnesium Hydroxide (Milk Of Magnesia 30 Ml Oral.Susp) 30 ml PO DAILY PRN PRN Reason: Constipation Metformin HCl (Metformin Hcl Er 500 Mg Tab.Er.24h) 500 mg PO DAILY@0800 [facility] Last Admin: 05/18/22 08:33 Dose: 500 mg Mirtazapine (Mirtazapine 15 Mg Tablet) 15 mg PO BEDTIME [facility] Last Admin: 05/17/22 20:38 Dose: 15 mg Risperidone (Risperidone 0.5 Mg Tablet) 0.5 mg PO BID [facility] Last Admin: 05/18/22 08:34 Dose: 0.5 mg Sertraline HCl (Sertraline Hcl 100 Mg Tablet) 100 mg PO DAILY [facility] Last Admin: 05/18/22 08:34 Dose: 100 mg Tramadol HCl (Tramadol Hcl 50 Mg Tablet) 25 mg PO Q8H PRN PRN Reason: Pain, Moderate (Pain Scale 4-6 Last Admin: 05/18/22 11:56 Dose: 25 mg Trazodone HCl (Trazodone Hcl 50 Mg Tablet) 50 mg PO BEDTIME PRN PRN Reason: Insomnia Allergies Allergies Allergy/AdvReac Type Severity Reaction Status Date / Time Sulfa (Sulfonamide Allergy Hives Verified 05/13/22 11:29 Antibiotics) codeine AdvReac Gastrointestinal Verified 05/13/22 11:29 Upset Assessment & Plan Assessment & Plan (1) Cognitive impairment: Status: Acute Code(s): R41.89 - Other symptoms and signs involving cognitive functions and awareness (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 Plan 1. Gather collateral information. 2. Continue antidepressants. 3. Continue antibiotics. 4. Continue antipsychotics 05/18: Continue treatment plan. I spent minutes with the patient and/or on the patient floor today, greater than?50% of which was spent counseling/coordinating care. Reason for contiued inpatient stay Substantial Risk for: inability to function and rapid decompensation
[2022-05-18 18:00] VITALS: BP 166/72; PULSE 82; RESP 16; TEMP 36.6; O2SAT 96
[2022-05-18] MEDS: Mirtazapine 15 MG TABLET PO (20:11)
[2022-05-19] MEDS: Insulin Glargine,Hum.rec.anlog 100 UNIT/ML 10 ML VIAL 47 UNIT SUBCUT (08:10)
[2022-05-19] MEDS: Famotidine 20 MG TABLET PO (08:10)
[2022-05-19] MEDS: amLODIPine Besylate 10 MG TABLET PO (08:11)
[2022-05-19] MEDS: metFORMIN HCl ER 500 MG TAB.ER.24H PO (08:11)
[2022-05-19] MEDS: LORazepam 0.5 MG TABLET 0.25 MG PO (08:11)
[2022-05-19] MEDS: levETIRAcetam 500 MG TABLET PO ×2 (08:13→20:51)
[2022-05-19] MEDS: risperiDONE 0.5 MG TABLET PO ×2 (08:13→20:51)
[2022-05-19] MEDS: Gabapentin 100 MG CAPSULE PO ×3 (08:13→20:46)
[2022-05-19] MEDS: hydrOXYzine HCL 25 MG TABLET 12.5 MG PO ×3 (08:13→20:50)
[2022-05-19] MEDS: Clopidogrel Bisulfate 75 MG TABLET PO (08:13)
[2022-05-19] MEDS: Loratadine 10 MG TABLET PO (08:13)
[2022-05-19] MEDS: Ezetimibe 10 MG TABLET PO (08:14)
[2022-05-19] MEDS: Atorvastatin Calcium 40 MG TABLET PO (08:14)
[2022-05-19] MEDS: Sertraline HCL 100 MG TABLET PO (08:14)
[2022-05-19] MEDS: Acetaminophen 325 MG TABLET 975 MG PO (13:35)
[2022-05-19] MEDS: traMADoL HCL 50 MG TABLET 25 MG PO (13:38)
--- NOTE | 2022-05-19 15:16 | P.PNPSI_ITS ---
Subjective Subjective Date of Service: 05/19/22 Reason For Visit: Tactile hallucinations Interim History: Patient seen and discussed with RN. Patient reports she has not seen the bugs today. She is less preoccupied and perseverative about same today although she did mention to the nurse earlier in the day she is still seeing the bugs on her skin. She seems somewhat less anxious today than yesterday. She denies SI. Review of Systems Review of Systems Yes all other systems are reviewed and are negative (Besides pruritus) Constitutional: Reports no additional constitutional complaints, Denies chills, Denies fever(s) and Denies night sweats Eyes: Reports no additional eye complaints, Denies blurry vision, Denies change in vision, Denies diplopia, Denies eye discharge, Denies loss of vision and Denies eye pain Denies dizziness Cardiovascular: Reports no additional cardiovascular complaints, Denies chest pain, Denies lightheadedness, Denies Loss of Consciousness and Denies dyspnea Respiratory: Reports no additional respiratory complaints and Denies dyspnea Gastrointestinal: Reports no additional gastrointestinal complaints, Denies abdominal pain, Denies melena, Denies hematochezia, Denies change in bowel habits and Denies change in stool character Musculoskeletal: Reports no additional musculoskeletal complaints, Denies numbness and Denies tingling Denies dizziness, Denies loss of vision, Denies numbness and Denies tingling Psychiatric: Reports no additional psychiatric complaints and Reports visual hallucinations Endocrine: Reports no additional endocrine complaints Hematologic/Lymphatic: Reports no additional hematologic/lymphatic complaints Allergic/Immunologic: Reports no additional allergic/immunologic complaints Mental Status Exam Mental Status Exam Narrative: Appearance: wearing hospital gown, thin, fair hygiene in NAD Behavior:fearful, overwhelmed by delusions psychomotor:no overt agitation or retardation noted Speech:clear, normal rate/rhythm/volume, spontaneous Thought process: repetitive- re: delusional parasitosis. Less perseverative today. Thought content:overwhelmed by ideas that bugs are invading her body, damaging all her organs Mood: sad Affect: congruent, distressed, fearful SI:none HI:none VH/AH:none Delusions:delusional paracitosis Insight/judgment:impaired x 2. Memory/cog: alert, not oriented to situation, but oriented to place, month, not date. Pending MOCA. Patient Appearance: Well Grooomed Patient Orientation: Person and Situation Level of Consciousness: Awake Patient Behavior: Appropriate and Guarded Mood Description: Withdrawn Affect Description: Labile Patient Cognition Impaired: Yes Ability to Follow Directions: Good Speech Pattern: Clear Diagnostics Vital Signs (24Hr): Vital Signs - 24 hr 05/18/22 18:00 Temperature 97.9 F Pulse Rate 82 Respiratory Rate 16 Blood Pressure 166/72 H Pulse Oximetry 96 Oxygen Delivery Method Room Air BMI result Body Mass Index 25.8 Labs Results: 05/13/22 14:38 05/16/22 07:51 Imaging Radiology Impressions: ITS Impressions Chest X-Ray 05/13/22 14:29 IMPRESSION: No acute intrathoracic disease. Head CT 05/13/22 14:30 IMPRESSION: No acute intracranial pathology. Medications Medications Current Medications Acetaminophen (Acetaminophen 325 Mg Tablet) 975 mg PO Q6H PRN PRN Reason: mild pain, Last Admin: 05/19/22 13:35 Dose: 975 mg Al Hydroxide/Mg Hydroxide (Magnesium Hydrox/Alum Hydrox 30 Ml Oral.Susp) 30 ml PO Q6H PRN PRN Reason: Heartburn/Nausea Amlodipine Besylate (Amlodipine Besylate 10 Mg Tablet) 10 mg PO DAILY [facility]; Protocol Last Admin: 05/19/22 08:11 Dose: 10 mg Atorvastatin Calcium (Atorvastatin Calcium 40 Mg Tablet) 40 mg PO DAILY [facility] Last Admin: 05/19/22 08:14 Dose: 40 mg Cefuroxime Axetil (Cefuroxime Axetil 250 Mg Tablet) 250 mg PO BID [facility] Stop: 05/21/22 14:44 Last Admin: 05/19/22 08:14 Dose: 250 mg Clopidogrel Bisulfate (Clopidogrel Bisulfate 75 Mg Tablet) 75 mg PO DAILY [facility] Last Admin: 05/19/22 08:13 Dose: 75 mg Ezetimibe (Ezetimibe 10 Mg Tablet) 10 mg PO DAILY [facility] Last Admin: 05/19/22 08:14 Dose: 10 mg Famotidine (Famotidine 20 Mg Tablet) 20 mg PO DAILY [facility] Last Admin: 05/19/22 08:10 Dose: 20 mg Gabapentin (Gabapentin 100 Mg Capsule) 100 mg PO TID [facility] Last Admin: 05/19/22 15:37 Dose: 100 mg Hydrocortisone (Hydrocortisone 1 % Cream 28.35 Gm Tube) 1 appl TOPICAL BID [facility]; Protocol Last Admin: 05/19/22 09:21 Dose: Not Given Hydroxyzine HCl (Hydroxyzine Hcl 25 Mg Tablet) 12.5 mg PO TID [facility] Last Admin: 05/19/22 15:37 Dose: 12.5 mg Ibuprofen (Ibuprofen 400 Mg Tablet) 400 mg PO Q6H PRN PRN Reason: headache Last Admin: 05/19/22 16:06 Dose: 400 mg Insulin Glargine (Insulin Glargine,Hum.Rec.Anlog 100 Unit/Ml 10 Ml Vial) 47 unit SUBCUT DAILY [facility] Last Admin: 05/19/22 08:10 Dose: 47 unit Levetiracetam (Levetiracetam 500 Mg Tablet) 500 mg PO BID [facility] Last Admin: 05/19/22 08:13 Dose: 500 mg Loratadine (Loratadine 10 Mg Tablet) 10 mg PO DAILY [facility] Last Admin: 05/19/22 08:13 Dose: 10 mg Lorazepam (Lorazepam 0.5 Mg Tablet) 0.25 mg PO Q6H PRN PRN Reason: anxiety Last Admin: 05/17/22 13:29 Dose: 0.25 mg Magnesium Hydroxide (Milk Of Magnesia 30 Ml Oral.Susp) 30 ml PO DAILY PRN PRN Reason: Constipation Metformin HCl (Metformin Hcl Er 500 Mg Tab.Er.24h) 500 mg PO DAILY@0800 [facility] Last Admin: 05/19/22 08:11 Dose: 500 mg Mirtazapine (Mirtazapine 15 Mg Tablet) 15 mg PO BEDTIME [facility] Last Admin: 05/18/22 20:11 Dose: 15 mg Risperidone (Risperidone 0.5 Mg Tablet) 0.5 mg PO BID [facility] Last Admin: 05/19/22 08:13 Dose: 0.5 mg Sertraline HCl (Sertraline Hcl 100 Mg Tablet) 100 mg PO DAILY [facility] Last Admin: 05/19/22 08:14 Dose: 100 mg Tramadol HCl (Tramadol Hcl 50 Mg Tablet) 25 mg PO Q8H PRN PRN Reason: Pain, Moderate (Pain Scale 4-6 Last Admin: 05/19/22 13:38 Dose: 25 mg Trazodone HCl (Trazodone Hcl 50 Mg Tablet) 50 mg PO BEDTIME PRN PRN Reason: Insomnia Allergies Allergies Allergy/AdvReac Type Severity Reaction Status Date / Time Sulfa (Sulfonamide Allergy Hives Verified 05/13/22 11:29 Antibiotics) codeine AdvReac Gastrointestinal Verified 05/13/22 11:29 Upset Assessment & Plan Assessment & Plan (1) Cognitive impairment: Status: Acute Code(s): R41.89 - Other symptoms and signs involving cognitive functions and awareness (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 Plan 1. Gather collateral information. 2. Continue antidepressants. 3. Continue antibiotics. 4. Continue antipsychotics 05/18: Continue treatment plan. 05/19: Continue treatment plan. I spent minutes with the patient and/or on the patient floor today, greater than?50% of which was spent counseling/coordinating care. Reason for contiued inpatient stay Substantial Risk for: inability to function and rapid decompensation
[2022-05-19] MEDS: Ibuprofen 400 MG TABLET PO (16:06)
[2022-05-19 19:38] VITALS: BP 167/74; PULSE 80; RESP 16; TEMP 36.6; O2SAT 95
[2022-05-19] MEDS: Mirtazapine 15 MG TABLET PO (20:50)
[2022-05-19] MEDS: traZODone HCL 50 MG TABLET PO (20:51)
[2022-05-20 06:00] VITALS: BP 144/67; PULSE 73; RESP 18; TEMP 36.3; O2SAT 97
[2022-05-20 08:05] LABS: Glucose, Whole Blood 69 mg/dL (60-115)
[2022-05-20] MEDS: Atorvastatin Calcium 40 MG TABLET PO (08:14)
[2022-05-20] MEDS: amLODIPine Besylate 10 MG TABLET PO (08:14)
[2022-05-20] MEDS: risperiDONE 0.5 MG TABLET PO ×2 (08:14→15:42)
[2022-05-20] MEDS: Famotidine 20 MG TABLET PO (08:14)
[2022-05-20] MEDS: hydrOXYzine HCL 25 MG TABLET 12.5 MG PO ×3 (08:14→21:24)
[2022-05-20] MEDS: Sertraline HCL 100 MG TABLET PO (08:14)
[2022-05-20] MEDS: Clopidogrel Bisulfate 75 MG TABLET PO (08:16)
[2022-05-20] MEDS: metFORMIN HCl ER 500 MG TAB.ER.24H PO (08:16)
[2022-05-20] MEDS: Loratadine 10 MG TABLET PO (08:16)
[2022-05-20] MEDS: Gabapentin 100 MG CAPSULE PO ×3 (08:16→21:24)
[2022-05-20] MEDS: Ezetimibe 10 MG TABLET PO (08:16)
[2022-05-20] MEDS: levETIRAcetam 500 MG TABLET PO ×2 (08:16→21:25)
[2022-05-20] MEDS: Insulin Glargine,Hum.rec.anlog 100 UNIT/ML 10 ML VIAL 47 UNIT SUBCUT (08:20)
--- NOTE | 2022-05-20 13:48 | P.PNPSI_ITS ---
Subjective Subjective Date of Service: 05/20/22 Reason For Visit: Tactile hallucinations Subjective Notes: Conditional Voluntary Interim History: The nursing staff reported the patient keeps believing that she has buttocks. She slept well with trazodone. She has participated in some groups and she is on one-to-one for his oxygen at night. The school social worker will arrange a family meeting with her daughter pretty soon. On interview the patient denies new symptoms she states that she has the buttocks and I explained her that she has dermatitis and I will increased the antihistaminics to help her for the pruritus. Medication Compliance: Yes Mental Status Exam Mental Status Exam Patient Appearance: Well Grooomed Patient Orientation: Person and Situation Level of Consciousness: Awake Patient Behavior: Cooperative Mood Description: Calm Affect Description: Constricted Patient Cognition Impaired: Yes Ability to Follow Directions: Good Speech Pattern: Clear Hallucinations: None Delusions: Paranoid Ideation Thought Process: Distracted and Slowed Thinking Thought Content: positive for [place] and positive for Poverty of Content Judgement: Fair Diagnostics Vital Signs (24Hr): Vital Signs - 24 hr 05/19/22 19:38 Temperature 97.8 F Pulse Rate 80 Respiratory Rate 16 Blood Pressure 167/74 H Pulse Oximetry 95 Oxygen Delivery Method Room Air BMI result Body Mass Index 25.8 Labs Results: 05/13/22 14:38 05/16/22 07:51 Labs: Laboratory Results - last 48 hr 05/20/22 08:02 POC Glucose 69 Imaging Radiology Impressions: ITS Impressions Chest X-Ray 05/13/22 14:29 IMPRESSION: No acute intrathoracic disease. Head CT 05/13/22 14:30 IMPRESSION: No acute intracranial pathology. Medications Medications Current Medications Acetaminophen (Acetaminophen 325 Mg Tablet) 975 mg PO Q6H PRN PRN Reason: mild pain, Last Admin: 05/19/22 13:35 Dose: 975 mg Al Hydroxide/Mg Hydroxide (Magnesium Hydrox/Alum Hydrox 30 Ml Oral.Susp) 30 ml PO Q6H PRN PRN Reason: Heartburn/Nausea Amlodipine Besylate (Amlodipine Besylate 10 Mg Tablet) 10 mg PO DAILY [facility]; Protocol Last Admin: 05/20/22 08:14 Dose: 10 mg Atorvastatin Calcium (Atorvastatin Calcium 40 Mg Tablet) 40 mg PO DAILY [facility] Last Admin: 05/20/22 08:14 Dose: 40 mg Cefuroxime Axetil (Cefuroxime Axetil 250 Mg Tablet) 250 mg PO BID [facility] Stop: 05/21/22 14:44 Last Admin: 05/20/22 08:14 Dose: 250 mg Clopidogrel Bisulfate (Clopidogrel Bisulfate 75 Mg Tablet) 75 mg PO DAILY [facility] Last Admin: 05/20/22 08:16 Dose: 75 mg Ezetimibe (Ezetimibe 10 Mg Tablet) 10 mg PO DAILY [facility] Last Admin: 05/20/22 08:16 Dose: 10 mg Famotidine (Famotidine 20 Mg Tablet) 20 mg PO DAILY [facility] Last Admin: 05/20/22 08:14 Dose: 20 mg Gabapentin (Gabapentin 100 Mg Capsule) 100 mg PO TID [facility] Last Admin: 05/20/22 08:16 Dose: 100 mg Hydrocortisone (Hydrocortisone 1 % Cream 28.35 Gm Tube) 1 appl TOPICAL BID [facility]; Protocol Last Admin: 05/20/22 08:47 Dose: Not Given Hydroxyzine HCl (Hydroxyzine Hcl 25 Mg Tablet) 12.5 mg PO TID [facility] Last Admin: 05/20/22 08:14 Dose: 12.5 mg Ibuprofen (Ibuprofen 400 Mg Tablet) 400 mg PO Q6H PRN PRN Reason: headache Last Admin: 05/19/22 16:06 Dose: 400 mg Insulin Glargine (Insulin Glargine,Hum.Rec.Anlog 100 Unit/Ml 10 Ml Vial) 47 unit SUBCUT DAILY [facility] Last Admin: 05/20/22 08:20 Dose: 47 unit Levetiracetam (Levetiracetam 500 Mg Tablet) 500 mg PO BID [facility] Last Admin: 05/20/22 08:16 Dose: 500 mg Loratadine (Loratadine 10 Mg Tablet) 10 mg PO DAILY [facility] Last Admin: 05/20/22 08:16 Dose: 10 mg Lorazepam (Lorazepam 0.5 Mg Tablet) 0.25 mg PO Q6H PRN PRN Reason: anxiety Last Admin: 05/17/22 13:29 Dose: 0.25 mg Magnesium Hydroxide (Milk Of Magnesia 30 Ml Oral.Susp) 30 ml PO DAILY PRN PRN Reason: Constipation Metformin HCl (Metformin Hcl Er 500 Mg Tab.Er.24h) 500 mg PO DAILY@0800 [facility] Last Admin: 05/20/22 08:16 Dose: 500 mg Mirtazapine (Mirtazapine 15 Mg Tablet) 15 mg PO BEDTIME [facility] Last Admin: 05/19/22 20:50 Dose: 15 mg Risperidone (Risperidone 0.5 Mg Tablet) 0.5 mg PO BID@0800,1500 [facility] Risperidone (Risperidone 1 Mg Tablet) 1 mg PO BEDTIME [facility] Sertraline HCl (Sertraline Hcl 100 Mg Tablet) 100 mg PO DAILY [facility] Last Admin: 05/20/22 08:14 Dose: 100 mg Trazodone HCl (Trazodone Hcl 50 Mg Tablet) 50 mg PO BEDTIME PRN PRN Reason: Insomnia Last Admin: 05/19/22 20:51 Dose: 50 mg Allergies Allergies Allergy/AdvReac Type Severity Reaction Status Date / Time Sulfa (Sulfonamide Allergy Hives Verified 05/13/22 11:29 Antibiotics) codeine AdvReac Gastrointestinal Verified 05/13/22 11:29 Upset Assessment & Plan Assessment & Plan (1) Cognitive impairment: Status: Acute Code(s): R41.89 - Other symptoms and signs involving cognitive functions and awareness (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 Plan 1. Gather collateral information. 2. Continue antidepressants. 3. Continue antibiotics. 4. Continue antipsychotics I spent ___20___ minutes with the patient and/or on the patient floor today, greater than?50% of which was spent counseling/coordinating care. Reason for contiued inpatient stay Substantial Risk for: inability to function, rapid decompensation and med/psych decompensation
[2022-05-20] MEDS: Ibuprofen 400 MG TABLET PO (17:02)
[2022-05-20 18:00] VITALS: BP 152/70; PULSE 83; TEMP 36.6; O2SAT 95
[2022-05-20] MEDS: Acetaminophen 325 MG TABLET 975 MG PO (18:03)
[2022-05-20] MEDS: Hydrocortisone 1 % Cream 28.35 GM TUBE 1 APPL TOPICAL (21:24)
[2022-05-20] MEDS: Mirtazapine 15 MG TABLET PO (21:25)
[2022-05-20] MEDS: risperiDONE 1 MG TABLET PO (21:25)
[2022-05-21 01:00] VITALS: BP 142/64; PULSE 89; RESP 16; TEMP 35.8; O2SAT 98
[2022-05-21 01:07] LABS: Glucose, Whole Blood 64 mg/dL (60-115)
[2022-05-21 05:22] LABS: Glucose, Whole Blood 101 mg/dL (60-115)
[2022-05-21 08:13] VITALS: BP 165/70; PULSE 80; RESP 18; TEMP 36.3; O2SAT 96
[2022-05-21] MEDS: Famotidine 20 MG TABLET PO (08:17)
[2022-05-21] MEDS: hydrOXYzine HCL 25 MG TABLET 12.5 MG PO ×3 (08:17→21:29)
[2022-05-21] MEDS: metFORMIN HCl ER 500 MG TAB.ER.24H PO (08:17)
[2022-05-21] MEDS: Gabapentin 100 MG CAPSULE PO ×3 (08:18→22:11)
[2022-05-21] MEDS: Atorvastatin Calcium 40 MG TABLET PO (08:18)
[2022-05-21] MEDS: risperiDONE 0.5 MG TABLET PO ×2 (08:18→14:33)
[2022-05-21] MEDS: Sertraline HCL 100 MG TABLET PO (08:19)
[2022-05-21] MEDS: Clopidogrel Bisulfate 75 MG TABLET PO (08:19)
[2022-05-21] MEDS: Loratadine 10 MG TABLET PO (08:19)
[2022-05-21] MEDS: amLODIPine Besylate 10 MG TABLET PO (08:19)
[2022-05-21] MEDS: Ezetimibe 10 MG TABLET PO (08:19)
[2022-05-21] MEDS: Insulin Glargine,Hum.rec.anlog 100 UNIT/ML 10 ML VIAL 47 UNIT SUBCUT (08:20)
[2022-05-21] MEDS: levETIRAcetam 500 MG TABLET PO ×2 (08:20→21:29)
--- NOTE | 2022-05-21 12:34 | P.PNPSI_ITS ---
Subjective Subjective Date of Service: 05/21/22 Reason For Visit: Tactile hallucinations Subjective Notes: Conditional Voluntary Interim History: The nursing staff reported the patient still thinks that she has backed on her skin. The staff reported that she did very good in groups. The patient complains on interview of some pain and we discussed the possibility of have a mortal consult for her wrist. The social media director reported will have a family meeting known on Friday. Mental Status Exam Mental Status Exam Patient Appearance: Well Grooomed Patient Orientation: Person and Situation Level of Consciousness: Awake and Appropriate Patient Behavior: Cooperative Mood Description: Calm Affect Description: Constricted Patient Cognition Impaired: Yes Speech Pattern: Clear Hallucinations: None Delusions: Not Present Thought Process: Linear Thought Content: positive for [place]um[place] Judgement: Fair Diagnostics Vital Signs (24Hr): Vital Signs - 24 hr 05/20/22 18:00 05/21/22 01:00 05/21/22 08:13 Temperature 98 F 96.5 F L 97.4 F Pulse Rate 83 89 80 Respiratory Rate 16 18 Blood Pressure 152/70 H 142/64 H 165/70 H Pulse Oximetry 95 98 96 Oxygen Delivery Method Room Air Room Air BMI result Body Mass Index 25.8 Labs Results: 05/13/22 14:38 05/16/22 07:51 Labs: Laboratory Results - last 48 hr 05/20/22 05/21/22 05/21/22 08:02 00:47 05:16 POC Glucose 69 64 101 Imaging Radiology Impressions: ITS Impressions Chest X-Ray 05/13/22 14:29 IMPRESSION: No acute intrathoracic disease. Head CT 05/13/22 14:30 IMPRESSION: No acute intracranial pathology. Hand/Wrist X-Ray 05/17/22 14:32 IMPRESSION: -No visible fracture or dislocation or destructive process. -Generalized osteopenia. Medications Medications Current Medications Acetaminophen (Acetaminophen 325 Mg Tablet) 975 mg PO Q6H PRN PRN Reason: mild pain, Last Admin: 05/20/22 18:03 Dose: 975 mg Al Hydroxide/Mg Hydroxide (Magnesium Hydrox/Alum Hydrox 30 Ml Oral.Susp) 30 ml PO Q6H PRN PRN Reason: Heartburn/Nausea Amlodipine Besylate (Amlodipine Besylate 10 Mg Tablet) 10 mg PO DAILY [facility]; Protocol Last Admin: 05/21/22 08:19 Dose: 10 mg Atorvastatin Calcium (Atorvastatin Calcium 40 Mg Tablet) 40 mg PO DAILY [facility] Last Admin: 05/21/22 08:18 Dose: 40 mg Cefuroxime Axetil (Cefuroxime Axetil 250 Mg Tablet) 250 mg PO BID [facility] Stop: 05/21/22 14:44 Last Admin: 05/21/22 08:17 Dose: 250 mg Clopidogrel Bisulfate (Clopidogrel Bisulfate 75 Mg Tablet) 75 mg PO DAILY [facility] Last Admin: 05/21/22 08:19 Dose: 75 mg Ezetimibe (Ezetimibe 10 Mg Tablet) 10 mg PO DAILY [facility] Last Admin: 05/21/22 08:19 Dose: 10 mg Famotidine (Famotidine 20 Mg Tablet) 20 mg PO DAILY [facility] Last Admin: 05/21/22 08:17 Dose: 20 mg Gabapentin (Gabapentin 100 Mg Capsule) 100 mg PO TID [facility] Last Admin: 05/21/22 08:18 Dose: 100 mg Hydrocortisone (Hydrocortisone 1 % Cream 28.35 Gm Tube) 1 appl TOPICAL BID [facility]; Protocol Last Admin: 05/21/22 08:22 Dose: Not Given Hydroxyzine HCl (Hydroxyzine Hcl 25 Mg Tablet) 12.5 mg PO TID [facility] Last Admin: 05/21/22 08:17 Dose: 12.5 mg Ibuprofen (Ibuprofen 400 Mg Tablet) 400 mg PO Q6H PRN PRN Reason: headache Last Admin: 05/20/22 17:02 Dose: 400 mg Insulin Glargine (Insulin Glargine,Hum.Rec.Anlog 100 Unit/Ml 10 Ml Vial) 47 unit SUBCUT DAILY [facility] Last Admin: 05/21/22 08:20 Dose: 47 unit Levetiracetam (Levetiracetam 500 Mg Tablet) 500 mg PO BID [facility] Last Admin: 05/21/22 08:20 Dose: 500 mg Loratadine (Loratadine 10 Mg Tablet) 10 mg PO DAILY [facility] Last Admin: 05/21/22 08:19 Dose: 10 mg Lorazepam (Lorazepam 0.5 Mg Tablet) 0.25 mg PO Q6H PRN PRN Reason: anxiety Last Admin: 05/17/22 13:29 Dose: 0.25 mg Magnesium Hydroxide (Milk Of Magnesia 30 Ml Oral.Susp) 30 ml PO DAILY PRN PRN Reason: Constipation Metformin HCl (Metformin Hcl Er 500 Mg Tab.Er.24h) 500 mg PO DAILY@0800 [facility] Last Admin: 05/21/22 08:17 Dose: 500 mg Mirtazapine (Mirtazapine 15 Mg Tablet) 15 mg PO BEDTIME [facility] Last Admin: 05/20/22 21:25 Dose: 15 mg Risperidone (Risperidone 0.5 Mg Tablet) 0.5 mg PO BID@0800,1500 [facility] Last Admin: 05/21/22 08:18 Dose: 0.5 mg Risperidone (Risperidone 1 Mg Tablet) 1 mg PO BEDTIME [facility] Last Admin: 05/20/22 21:25 Dose: 1 mg Sertraline HCl (Sertraline Hcl 100 Mg Tablet) 100 mg PO DAILY [facility] Last Admin: 05/21/22 08:19 Dose: 100 mg Trazodone HCl (Trazodone Hcl 50 Mg Tablet) 50 mg PO BEDTIME PRN PRN Reason: Insomnia Last Admin: 05/19/22 20:51 Dose: 50 mg Allergies Allergies Allergy/AdvReac Type Severity Reaction Status Date / Time Sulfa (Sulfonamide Allergy Hives Verified 05/13/22 11:29 Antibiotics) codeine AdvReac Gastrointestinal Verified 05/13/22 11:29 Upset Assessment & Plan Assessment & Plan (1) Cognitive impairment: Status: Acute Code(s): R41.89 - Other symptoms and signs involving cognitive functions and awareness (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 Plan 1. Gather collateral information. 2. Continue antidepressants. 3. Continue antibiotics. 4. Continue antipsychotics I spent ___20___ minutes with the patient and/or on the patient floor today, greater than?50% of which was spent counseling/coordinating care. Reason for contiued inpatient stay Substantial Risk for: inability to function, rapid decompensation and med/psych decompensation
[2022-05-21 18:00] VITALS: BP 138/83; PULSE 84; RESP 16; TEMP 36.3; O2SAT 98
[2022-05-21] MEDS: risperiDONE 1 MG TABLET PO (21:29)
[2022-05-21] MEDS: Mirtazapine 15 MG TABLET PO (21:30)
[2022-05-22 06:00] VITALS: BP 121/57; PULSE 86; RESP 16; TEMP 36.4; O2SAT 98
[2022-05-22] MEDS: Acetaminophen 325 MG TABLET 975 MG PO (06:22)
[2022-05-22] MEDS: Atorvastatin Calcium 40 MG TABLET PO (08:15)
[2022-05-22] MEDS: amLODIPine Besylate 10 MG TABLET PO (08:15)
[2022-05-22] MEDS: metFORMIN HCl ER 500 MG TAB.ER.24H PO (08:15)
[2022-05-22] MEDS: Sertraline HCL 100 MG TABLET PO (08:16)
[2022-05-22] MEDS: levETIRAcetam 500 MG TABLET PO ×2 (08:16→20:01)
[2022-05-22] MEDS: hydrOXYzine HCL 25 MG TABLET 12.5 MG PO ×3 (08:16→20:01)
[2022-05-22] MEDS: Loratadine 10 MG TABLET PO (08:17)
[2022-05-22] MEDS: risperiDONE 0.5 MG TABLET PO ×2 (08:17→15:36)
[2022-05-22] MEDS: Ezetimibe 10 MG TABLET PO (08:17)
[2022-05-22] MEDS: Gabapentin 100 MG CAPSULE PO ×3 (08:17→20:01)
[2022-05-22] MEDS: Clopidogrel Bisulfate 75 MG TABLET PO (08:17)
[2022-05-22] MEDS: Famotidine 20 MG TABLET PO (08:18)
[2022-05-22] MEDS: Insulin Glargine,Hum.rec.anlog 100 UNIT/ML 10 ML VIAL 47 UNIT SUBCUT (08:18)
[2022-05-22] MEDS: Hydrocortisone 1 % Cream 28.35 GM TUBE 1 APPL TOPICAL ×2 (09:43→20:33)
[2022-05-22] MEDS: Ibuprofen 400 MG TABLET PO ×2 (09:57→20:00)
--- NOTE | 2022-05-22 13:27 | P.PNPSI_ITS ---
Subjective Subjective Date of Service: 05/22/22 Reason For Visit: Tactile hallucinations Subjective Notes: Conditional Voluntary Interim History: The nursing staff reported the patient still complaining of having bugs on her skin. She was labilel with episodes of crying and episodes of laughing. On interview the patient reports that she still has problems with her skin. At this moment she is at a high dose of Risperdal as a mood stabilizer. No side effects. Mental Status Exam Mental Status Exam Patient Appearance: Well Grooomed Patient Orientation: Person and Situation Level of Consciousness: Awake Patient Behavior: Cooperative Mood Description: Withdrawn Affect Description: Labile Patient Cognition Impaired: Yes Ability to Follow Directions: Good Speech Pattern: Clear Hallucinations: None Delusions: Ideas of Reference and Bizarre Perceptual Disturbances: Hallucinations (Somatic) Thought Process: Distracted Thought Content: positive for [place] and positive for Poverty of Content Judgement: Fair Diagnostics Vital Signs (24Hr): Vital Signs - 24 hr 05/21/22 18:00 05/22/22 06:00 Temperature 97.3 F 97.5 F Pulse Rate 84 86 Respiratory Rate 16 16 Blood Pressure 138/83 121/57 L Pulse Oximetry 98 98 Oxygen Delivery Method Nasal Cannula Room Air Oxygen Flow Rate 2 BMI result Body Mass Index 25.8 Labs Results: 05/13/22 14:38 05/16/22 07:51 Labs: Laboratory Results - last 48 hr 05/21/22 05/21/22 00:47 05:16 POC Glucose 64 101 Imaging Radiology Impressions: ITS Impressions Chest X-Ray 05/13/22 14:29 IMPRESSION: No acute intrathoracic disease. Head CT 05/13/22 14:30 IMPRESSION: No acute intracranial pathology. Hand/Wrist X-Ray 05/17/22 14:32 IMPRESSION: -No visible fracture or dislocation or destructive process. -Generalized osteopenia. Medications Medications Current Medications Acetaminophen (Acetaminophen 325 Mg Tablet) 975 mg PO Q6H PRN PRN Reason: mild pain, Last Admin: 05/22/22 06:22 Dose: 975 mg Al Hydroxide/Mg Hydroxide (Magnesium Hydrox/Alum Hydrox 30 Ml Oral.Susp) 30 ml PO Q6H PRN PRN Reason: Heartburn/Nausea Amlodipine Besylate (Amlodipine Besylate 10 Mg Tablet) 10 mg PO DAILY [facility]; Protocol Last Admin: 05/22/22 08:15 Dose: 10 mg Atorvastatin Calcium (Atorvastatin Calcium 40 Mg Tablet) 40 mg PO DAILY [facility] Last Admin: 05/22/22 08:15 Dose: 40 mg Clopidogrel Bisulfate (Clopidogrel Bisulfate 75 Mg Tablet) 75 mg PO DAILY [facility] Last Admin: 05/22/22 08:17 Dose: 75 mg Ezetimibe (Ezetimibe 10 Mg Tablet) 10 mg PO DAILY [facility] Last Admin: 05/22/22 08:17 Dose: 10 mg Famotidine (Famotidine 20 Mg Tablet) 20 mg PO DAILY [facility] Last Admin: 05/22/22 08:18 Dose: 20 mg Gabapentin (Gabapentin 100 Mg Capsule) 100 mg PO TID [facility] Last Admin: 05/22/22 08:17 Dose: 100 mg Hydrocortisone (Hydrocortisone 1 % Cream 28.35 Gm Tube) 1 appl TOPICAL BID [facility]; Protocol Last Admin: 05/22/22 09:43 Dose: 1 appl Hydroxyzine HCl (Hydroxyzine Hcl 25 Mg Tablet) 12.5 mg PO TID [facility] Last Admin: 05/22/22 08:16 Dose: 12.5 mg Ibuprofen (Ibuprofen 400 Mg Tablet) 400 mg PO Q6H PRN PRN Reason: headache Last Admin: 05/22/22 09:57 Dose: 400 mg Insulin Glargine (Insulin Glargine,Hum.Rec.Anlog 100 Unit/Ml 10 Ml Vial) 47 unit SUBCUT DAILY [facility] Last Admin: 05/22/22 08:18 Dose: 47 unit Levetiracetam (Levetiracetam 500 Mg Tablet) 500 mg PO BID [facility] Last Admin: 05/22/22 08:16 Dose: 500 mg Loratadine (Loratadine 10 Mg Tablet) 10 mg PO DAILY [facility] Last Admin: 05/22/22 08:17 Dose: 10 mg Magnesium Hydroxide (Milk Of Magnesia 30 Ml Oral.Susp) 30 ml PO DAILY PRN PRN Reason: Constipation Metformin HCl (Metformin Hcl Er 500 Mg Tab.Er.24h) 500 mg PO DAILY@0800 [facility] Last Admin: 05/22/22 08:15 Dose: 500 mg Mirtazapine (Mirtazapine 15 Mg Tablet) 15 mg PO BEDTIME [facility] Last Admin: 05/21/22 21:30 Dose: 15 mg Risperidone (Risperidone 0.5 Mg Tablet) 0.5 mg PO BID@0800,1500 [facility] Last Admin: 05/22/22 08:17 Dose: 0.5 mg Risperidone (Risperidone 1 Mg Tablet) 1 mg PO BEDTIME [facility] Last Admin: 05/21/22 21:29 Dose: 1 mg Sertraline HCl (Sertraline Hcl 100 Mg Tablet) 100 mg PO DAILY [facility] Last Admin: 05/22/22 08:16 Dose: 100 mg Trazodone HCl (Trazodone Hcl 50 Mg Tablet) 50 mg PO BEDTIME PRN PRN Reason: Insomnia Last Admin: 05/19/22 20:51 Dose: 50 mg Allergies Allergies Allergy/AdvReac Type Severity Reaction Status Date / Time Sulfa (Sulfonamide Allergy Hives Verified 05/13/22 11:29 Antibiotics) codeine AdvReac Gastrointestinal Verified 05/13/22 11:29 Upset Assessment & Plan Assessment & Plan (1) Cognitive impairment: Status: Acute Code(s): R41.89 - Other symptoms and signs involving cognitive functions and awareness (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 Plan 1. Gather collateral information. 2. Continue antidepressants. 3. Continue antibiotics. 4. Continue antipsychotics I spent minutes with the patient and/or on the patient floor today, greater than?50% of which was spent counseling/coordinating care. Reason for contiued inpatient stay Substantial Risk for: inability to function, rapid decompensation and med/psych decompensation
[2022-05-22 18:00] VITALS: BP 147/68; PULSE 78; RESP 16; TEMP 37.1; O2SAT 95
[2022-05-22] MEDS: risperiDONE 1 MG TABLET PO (20:01)
[2022-05-22] MEDS: Mirtazapine 15 MG TABLET PO (20:01)
[2022-05-22 20:24] LABS: Glucose, Whole Blood 130 mg/dL (60-115)
[2022-05-23 01:20] VITALS: BP 160/69; PULSE 86; RESP 16; TEMP 36.1; O2SAT 98
[2022-05-23 01:28] LABS: Glucose, Whole Blood 53 mg/dL (60-115)
[2022-05-23 01:30] VITALS: BP 137/63; PULSE 86; RESP 18; TEMP 36.6; O2SAT 96
[2022-05-23 01:37] LABS: Glucose, Whole Blood 95 mg/dL (60-115)
--- NOTE | 2022-05-23 01:48 | PC.NURSE ---
P. pt compliant i do not feel right i am hot and sweaty i. assessment-awake/sensorium intact.complexion pale. skin warm/diaphoretic. wearing nocturnal o2 2lpm. resp effort regular unlabored. i. vitals 97.1 p 86 bpm rr 16 sao2 98% b/p 160/69 i. pt IDDM with several recent episodes of hypoglycemia poc checked 53 i. 2 cups of orange juice offered and drunk i. 4 gram crackers covered in peanut butter offered and eaten i. rechecked poc 95 i. vitals 97.8 p 86 bpm rr 18 sao2 96% b/p 137/63
[2022-05-23 05:44] LABS: Glucose, Whole Blood 118 mg/dL (60-115)
[2022-05-23 07:35] VITALS: BP 158/69; PULSE 77; RESP 16; TEMP 36.4; O2SAT 96
--- NOTE | 2022-05-23 13:16 | HO.PSYCHPN ---
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 On interview the patient was pleasantly confused but the staff reported that she has been tearful and labile. Not participating groups. Mental Status Exam Mental Status Exam Patient Appearance: Well Grooomed Patient Orientation: Person and Situation Level of Consciousness: Awake Patient Behavior: Guarded Mood Description: Withdrawn Affect Description: Calm Patient Cognition Impaired: Yes Ability to Follow Directions: Good Speech Pattern: Clear Hallucinations: None Delusions: Bizarre Thought Process: Distracted and Evasive Thought Content: positive for [place] Judgement: Fair Diagnostics Vital Signs (24Hr): Vital Signs - 24 hr 05/22/22 18:00 05/23/22 01:20 05/23/22 01:30 Temperature 98.8 F 97 F 97.8 F Pulse Rate 78 86 86 Respiratory Rate 16 16 18 Blood Pressure 147/68 H 160/69 H 137/63 Pulse Oximetry 95 98 96 Oxygen Delivery Method Room Air Nasal Cannula Nasal Cannula Oxygen Flow Rate 2 2 05/23/22 07:35 Temperature 97.5 F Pulse Rate 77 Respiratory Rate 16 Blood Pressure 158/69 H Pulse Oximetry 96 Oxygen Delivery Method Room Air Oxygen Flow Rate BMI result Body Mass Index 25.8 Labs Results: 05/13/22 14:38 05/16/22 07:51 Labs: Laboratory Results - last 48 hr 05/22/22 05/23/22 05/23/22 20:17 01:19 01:33 POC Glucose 130 H 53 L* 95 05/23/22 05:40 POC Glucose 118 H Imaging Radiology Impressions: ITS Impressions Chest X-Ray 05/13/22 14:29 IMPRESSION: No acute intrathoracic disease. Head CT 05/13/22 14:30 IMPRESSION: No acute intracranial pathology. Hand/Wrist X-Ray 05/17/22 14:32 IMPRESSION: -No visible fracture or dislocation or destructive process. -Generalized osteopenia. Medications Medications Current Medications Acetaminophen (Acetaminophen 325 Mg Tablet) 975 mg PO Q6H PRN PRN Reason: mild pain, Last Admin: 05/22/22 06:22 Dose: 975 mg Al Hydroxide/Mg Hydroxide (Magnesium Hydrox/Alum Hydrox 30 Ml Oral.Susp) 30 ml PO Q6H PRN PRN Reason: Heartburn/Nausea Amlodipine Besylate (Amlodipine Besylate 10 Mg Tablet) 10 mg PO DAILY [facility]; Protocol Last Admin: 05/23/22 10:17 Dose: Not Given Atorvastatin Calcium (Atorvastatin Calcium 40 Mg Tablet) 40 mg PO DAILY [facility] Last Admin: 05/23/22 10:17 Dose: Not Given Clopidogrel Bisulfate (Clopidogrel Bisulfate 75 Mg Tablet) 75 mg PO DAILY [facility] Last Admin: 05/23/22 10:19 Dose: Not Given Ezetimibe (Ezetimibe 10 Mg Tablet) 10 mg PO DAILY [facility] Last Admin: 05/23/22 10:19 Dose: Not Given Famotidine (Famotidine 20 Mg Tablet) 20 mg PO DAILY [facility] Last Admin: 05/23/22 10:20 Dose: Not Given Gabapentin (Gabapentin 100 Mg Capsule) 100 mg PO TID [facility] Last Admin: 05/23/22 10:20 Dose: Not Given Hydrocortisone (Hydrocortisone 1 % Cream 28.35 Gm Tube) 1 appl TOPICAL BID [facility]; Protocol Last Admin: 05/23/22 10:20 Dose: Not Given Hydroxyzine HCl (Hydroxyzine Hcl 25 Mg Tablet) 12.5 mg PO TID [facility] Last Admin: 05/23/22 10:20 Dose: Not Given Ibuprofen (Ibuprofen 400 Mg Tablet) 400 mg PO Q6H PRN PRN Reason: headache Last Admin: 05/22/22 20:00 Dose: 400 mg Insulin Glargine (Insulin Glargine,Hum.Rec.Anlog 100 Unit/Ml 10 Ml Vial) 47 unit SUBCUT DAILY [facility] Last Admin: 05/23/22 10:20 Dose: Not Given Levetiracetam (Levetiracetam 500 Mg Tablet) 500 mg PO BID [facility] Last Admin: 05/23/22 10:21 Dose: Not Given Loratadine (Loratadine 10 Mg Tablet) 10 mg PO DAILY [facility] Last Admin: 05/23/22 10:21 Dose: Not Given Magnesium Hydroxide (Milk Of Magnesia 30 Ml Oral.Susp) 30 ml PO DAILY PRN PRN Reason: Constipation Metformin HCl (Metformin Hcl Er 500 Mg Tab.Er.24h) 500 mg PO DAILY@0800 [facility] Last Admin: 05/23/22 10:17 Dose: Not Given Mirtazapine (Mirtazapine 15 Mg Tablet) 15 mg PO BEDTIME [facility] Last Admin: 05/22/22 20:01 Dose: 15 mg Risperidone (Risperidone 0.5 Mg Tablet) 0.5 mg PO BID@0800,1500 [facility] Last Admin: 05/23/22 10:17 Dose: Not Given Risperidone (Risperidone 1 Mg Tablet) 1 mg PO BEDTIME [facility] Last Admin: 05/22/22 20:01 Dose: 1 mg Sertraline HCl (Sertraline Hcl 100 Mg Tablet) 100 mg PO DAILY [facility] Last Admin: 05/23/22 10:21 Dose: Not Given Trazodone HCl (Trazodone Hcl 50 Mg Tablet) 50 mg PO BEDTIME PRN PRN Reason: Insomnia Last Admin: 05/19/22 20:51 Dose: 50 mg Allergies Allergies Allergy/AdvReac Type Severity Reaction Status Date / Time Sulfa (Sulfonamide Allergy Hives Verified 05/13/22 11:29 Antibiotics) codeine AdvReac Gastrointestinal Verified 05/13/22 11:29 Upset Assessment & Plan Assessment & Plan (1) Cognitive impairment: Status: Acute Code(s): R41.89 - Other symptoms and signs involving cognitive functions and awareness (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 Plan 1. Gather collateral information. 2. Continue antidepressants. 3. Continue antibiotics. 4. Continue antipsychotics I spent ___20___ minutes with the patient and/or on the patient floor today, greater than?50% of which was spent counseling/coordinating care. Reason for contiued inpatient stay Substantial Risk for: inability to function, rapid decompensation and med/psych decompensation
[2022-05-23] MEDS: hydrOXYzine HCL 25 MG TABLET 12.5 MG PO ×2 (14:19→20:23)
[2022-05-23] MEDS: Gabapentin 100 MG CAPSULE PO ×2 (14:20→20:25)
[2022-05-23] MEDS: LORazepam 1 MG TABLET PO (14:20)
[2022-05-23] MEDS: risperiDONE 0.5 MG TABLET PO (15:57)
[2022-05-23 19:30] VITALS: BP 111/55; PULSE 88; TEMP 36.6
[2022-05-23] MEDS: levETIRAcetam 500 MG TABLET PO (20:23)
[2022-05-23] MEDS: traMADoL HCL 50 MG TABLET 25 MG PO (20:24)
[2022-05-23] MEDS: risperiDONE 1 MG TABLET PO (20:25)
[2022-05-23] MEDS: Mirtazapine 15 MG TABLET PO (20:25)
[2022-05-23 23:15] LABS: Glucose, Whole Blood 153 mg/dL (60-115)
[2022-05-24 07:45] LABS: Glucose, Whole Blood 106 mg/dL (60-115)
[2022-05-24 07:50] VITALS: BP 151/70; PULSE 72; RESP 16; TEMP 36.2; O2SAT 94
[2022-05-24] MEDS: Insulin Glargine,Hum.rec.anlog 100 UNIT/ML 10 ML VIAL 47 UNIT SUBCUT (07:50)
[2022-05-24] MEDS: levETIRAcetam 500 MG TABLET PO ×2 (07:52→20:27)
[2022-05-24] MEDS: Gabapentin 100 MG CAPSULE PO ×3 (07:52→20:27)
[2022-05-24] MEDS: Ezetimibe 10 MG TABLET PO (07:52)
[2022-05-24] MEDS: traMADoL HCL 50 MG TABLET 25 MG PO ×2 (07:53→20:27)
[2022-05-24] MEDS: Atorvastatin Calcium 40 MG TABLET PO (07:53)
[2022-05-24] MEDS: risperiDONE 0.5 MG TABLET PO ×2 (07:55→14:45)
[2022-05-24] MEDS: metFORMIN HCl ER 500 MG TAB.ER.24H PO (07:56)
[2022-05-24] MEDS: Loratadine 10 MG TABLET PO (07:56)
[2022-05-24] MEDS: hydrOXYzine HCL 25 MG TABLET 12.5 MG PO ×3 (07:56→20:26)
[2022-05-24] MEDS: amLODIPine Besylate 10 MG TABLET PO (07:57)
[2022-05-24] MEDS: Famotidine 20 MG TABLET PO (07:57)
[2022-05-24] MEDS: Sertraline HCL 100 MG TABLET PO (07:57)
[2022-05-24] MEDS: Clopidogrel Bisulfate 75 MG TABLET PO (07:58)
--- NOTE | 2022-05-24 09:02 | P.PNPSI_ITS ---
Subjective Subjective Date of Service: 05/24/22 Reason For Visit: Tactile hallucinations Interim History: PATIENT DEPRESSED WITHDRAWN NOW DENYING ANY ACTIVE SUICIDAL THOUGHTS BUT REMAINS TEARFUL DESPAIRING Medication Compliance: Yes Mental Status Exam Mental Status Exam Patient Appearance: Well Grooomed Patient Orientation: Person and Situation Level of Consciousness: Awake Patient Behavior: Guarded Mood Description: Withdrawn Affect Description: Calm Patient Cognition Impaired: Yes Ability to Follow Directions: Good Speech Pattern: Clear Hallucinations: None Delusions: Bizarre Thought Process: Distracted and Evasive Thought Content: positive for [place] Judgement: Fair Diagnostics Vital Signs (24Hr): Vital Signs - 24 hr 05/23/22 19:30 Temperature 97.9 F Pulse Rate 88 Blood Pressure 111/55 L BMI result Body Mass Index 25.8 Labs Results: 05/13/22 14:38 05/24/22 09:56 Labs: Laboratory Results - last 48 hr 05/22/22 05/23/22 05/23/22 20:17 01:19 01:33 POC Glucose 130 H 53 L* 95 05/23/22 05/23/22 05/24/22 05:40 23:11 07:41 POC Glucose 118 H 153 H 106 Imaging Radiology Impressions: ITS Impressions Chest X-Ray 05/13/22 14:29 IMPRESSION: No acute intrathoracic disease. Head CT 05/13/22 14:30 IMPRESSION: No acute intracranial pathology. Hand/Wrist X-Ray 05/17/22 14:32 IMPRESSION: -No visible fracture or dislocation or destructive process. -Generalized osteopenia. Medications Medications Current Medications Acetaminophen (Acetaminophen 325 Mg Tablet) 975 mg PO Q6H PRN PRN Reason: mild pain, Last Admin: 05/22/22 06:22 Dose: 975 mg Al Hydroxide/Mg Hydroxide (Magnesium Hydrox/Alum Hydrox 30 Ml Oral.Susp) 30 ml PO Q6H PRN PRN Reason: Heartburn/Nausea Amlodipine Besylate (Amlodipine Besylate 10 Mg Tablet) 10 mg PO DAILY [facility]; Protocol Last Admin: 05/24/22 07:57 Dose: 10 mg Atorvastatin Calcium (Atorvastatin Calcium 40 Mg Tablet) 40 mg PO DAILY [facility] Last Admin: 05/24/22 07:53 Dose: 40 mg Clopidogrel Bisulfate (Clopidogrel Bisulfate 75 Mg Tablet) 75 mg PO DAILY [facility] Last Admin: 05/24/22 07:58 Dose: 75 mg Ezetimibe (Ezetimibe 10 Mg Tablet) 10 mg PO DAILY [facility] Last Admin: 05/24/22 07:52 Dose: 10 mg Famotidine (Famotidine 20 Mg Tablet) 20 mg PO DAILY [facility] Last Admin: 05/24/22 07:57 Dose: 20 mg Gabapentin (Gabapentin 100 Mg Capsule) 100 mg PO TID [facility] Last Admin: 05/24/22 07:52 Dose: 100 mg Hydrocortisone (Hydrocortisone 1 % Cream 28.35 Gm Tube) 1 appl TOPICAL BID [facility]; Protocol Last Admin: 05/24/22 08:05 Dose: Not Given Hydroxyzine HCl (Hydroxyzine Hcl 25 Mg Tablet) 12.5 mg PO TID [facility] Last Admin: 05/24/22 07:56 Dose: 12.5 mg Ibuprofen (Ibuprofen 400 Mg Tablet) 400 mg PO Q6H PRN PRN Reason: headache Last Admin: 05/22/22 20:00 Dose: 400 mg Insulin Glargine (Insulin Glargine,Hum.Rec.Anlog 100 Unit/Ml 10 Ml Vial) 47 unit SUBCUT DAILY [facility] Last Admin: 05/24/22 07:50 Dose: 47 unit Levetiracetam (Levetiracetam 500 Mg Tablet) 500 mg PO BID [facility] Last Admin: 05/24/22 07:52 Dose: 500 mg Loratadine (Loratadine 10 Mg Tablet) 10 mg PO DAILY [facility] Last Admin: 05/24/22 07:56 Dose: 10 mg Lorazepam (Lorazepam 1 Mg Tablet) 1 mg PO TID PRN PRN Reason: Anxiety Last Admin: 05/23/22 14:20 Dose: 1 mg Magnesium Hydroxide (Milk Of Magnesia 30 Ml Oral.Susp) 30 ml PO DAILY PRN PRN Reason: Constipation Metformin HCl (Metformin Hcl Er 500 Mg Tab.Er.24h) 500 mg PO DAILY@0800 [facility] Last Admin: 05/24/22 07:56 Dose: 500 mg Mirtazapine (Mirtazapine 15 Mg Tablet) 15 mg PO BEDTIME [facility] Last Admin: 05/23/22 20:25 Dose: 15 mg Risperidone (Risperidone 0.5 Mg Tablet) 0.5 mg PO BID@0800,1500 [facility] Last Admin: 05/24/22 07:55 Dose: 0.5 mg Risperidone (Risperidone 1 Mg Tablet) 1 mg PO BEDTIME [facility] Last Admin: 05/23/22 20:25 Dose: 1 mg Sertraline HCl (Sertraline Hcl 100 Mg Tablet) 100 mg PO DAILY [facility] Last Admin: 05/24/22 07:57 Dose: 100 mg Tramadol HCl (Tramadol Hcl 50 Mg Tablet) 25 mg PO BID [facility] Last Admin: 05/24/22 07:53 Dose: 25 mg Trazodone HCl (Trazodone Hcl 50 Mg Tablet) 50 mg PO BEDTIME PRN PRN Reason: Insomnia Last Admin: 05/19/22 20:51 Dose: 50 mg Allergies Allergies Allergy/AdvReac Type Severity Reaction Status Date / Time Sulfa (Sulfonamide Allergy Hives Verified 05/13/22 11:29 Antibiotics) codeine AdvReac Gastrointestinal Verified 05/13/22 11:29 Upset Assessment & Plan Assessment & Plan (1) Cognitive impairment: Status: Acute Code(s): R41.89 - Other symptoms and signs involving cognitive functions and awareness (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 Plan 1. Gather collateral information. 2. Continue antidepressants. 3. Continue antibiotics. 4. Continue antipsychotics CAN TAKE OFF ONE-TO-ONE MONITOR FOR SAFETY AND RESPONSE TO TREATMENT I spent minutes with the patient and/or on the patient floor today, greater than?50% of which was spent counseling/coordinating care. Reason for contiued inpatient stay Substantial Risk for: harm to self
[2022-05-24 10:26] LABS: Anion Gap 14 (12-20); Blood Urea Nitrogen 17 mg/dL (9-16); Calcium 8.2 mg/dL (8.4-10.2); Carbon Dioxide 27 mmol/L (22-29); Chloride 103 mmol/L (96-108); Creatinine Clr Calc Pharmacy 36.7; Estimated Glomerular Filt Rate > 60; Glucose Random 221 mg/dL (60-115); Potassium 4.7 mmol/L (3.3-5.1); Sodium 139 mmol/L (135-145)
[2022-05-24 18:00] VITALS: BP 148/65; PULSE 73; RESP 18; TEMP 36.1; O2SAT 92
[2022-05-24 18:11] VITALS: BMI 27.3
[2022-05-24] MEDS: risperiDONE 1 MG TABLET PO (20:26)
[2022-05-24] MEDS: Mirtazapine 15 MG TABLET PO (20:26)
[2022-05-24 20:57] LABS: Glucose, Whole Blood 128 mg/dL (60-115)
[2022-05-25 06:00] VITALS: BP 122/60; PULSE 83; RESP 19; TEMP 36.7; O2SAT 97
[2022-05-25] MEDS: Sertraline HCL 100 MG TABLET PO (08:22)
[2022-05-25] MEDS: hydrOXYzine HCL 25 MG TABLET 12.5 MG PO ×3 (08:22→20:16)
[2022-05-25] MEDS: metFORMIN HCl ER 500 MG TAB.ER.24H PO (08:22)
[2022-05-25] MEDS: Ezetimibe 10 MG TABLET PO (08:22)
[2022-05-25] MEDS: Clopidogrel Bisulfate 75 MG TABLET PO (08:23)
[2022-05-25] MEDS: amLODIPine Besylate 10 MG TABLET PO (08:23)
[2022-05-25] MEDS: Loratadine 10 MG TABLET PO (08:24)
[2022-05-25] MEDS: Atorvastatin Calcium 40 MG TABLET PO (08:24)
[2022-05-25] MEDS: traMADoL HCL 50 MG TABLET 25 MG PO ×2 (08:24→20:15)
[2022-05-25] MEDS: Famotidine 20 MG TABLET PO (08:24)
[2022-05-25] MEDS: Gabapentin 100 MG CAPSULE PO ×3 (08:25→20:15)
[2022-05-25] MEDS: risperiDONE 0.5 MG TABLET PO ×2 (08:26→17:59)
[2022-05-25] MEDS: Insulin Glargine,Hum.rec.anlog 100 UNIT/ML 10 ML VIAL 47 UNIT SUBCUT (09:44)
[2022-05-25 09:56] LABS: Glucose, Whole Blood 334 mg/dL (60-115)
[2022-05-25] MEDS: levETIRAcetam 500 MG TABLET PO ×2 (11:22→20:16)
--- NOTE | 2022-05-25 13:49 | HO.PSYCHPN ---
Subjective Subjective Date of Service: 05/25/22 Reason For Visit: Tactile hallucinations Subjective Notes: Conditional Voluntary Interim History: presents is feeling depressed and tearful. Reports wanting to go to [facility] so she can see her daughter. Reports feeling depressed. No overt hallucinations and these do appear to be much less intense as per staff. 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 Sleep has been okay. No medication concerns. Regarding splint, ortho consult was requested regarding current splints and if this is providing enough support overdose last intervention not only the wrist but also the fingers. Medication Compliance: Yes Side effects from medications: No Attending Groups: Intermittent Review of Systems Medical Review of Systems: unchanged Review of Systems Review of Systems Unremarkable Mental Status Exam Mental Status Exam Narrative: pleasant and engaged. Tearful and depressed. Thoughts of . No active SI. No overt psychosis currently. Insight and judgment okay Diagnostics Vital Signs (24Hr): Vital Signs - 24 hr 05/24/22 18:00 05/25/22 06:00 Temperature 97 F 98.1 F Pulse Rate 73 83 Respiratory Rate 18 19 Blood Pressure 148/65 H 122/60 Pulse Oximetry 92 97 Oxygen Delivery Method Room Air Room Air BMI result Body Mass Index 27.3 Labs Results: 05/13/22 14:38 05/24/22 09:56 Labs: Laboratory Results - last 48 hr 05/23/22 05/24/22 05/24/22 23:11 07:41 09:56 Sodium 139 Potassium 4.7 Chloride 103 Carbon Dioxide 27 Anion Gap 14 BUN 17 H Creatinine 0.85 Estim Creat Clear Calc 36.7 Estimated GFR > 60 POC Glucose 153 H 106 Random Glucose 221 H Calcium 8.2 L D 05/24/22 05/25/22 20:31 09:50 Sodium Potassium Chloride Carbon Dioxide Anion Gap BUN Creatinine Estim Creat Clear Calc Estimated GFR POC Glucose 128 H 334 H Random Glucose Calcium Imaging Radiology Impressions: ITS Impressions Chest X-Ray 05/13/22 14:29 IMPRESSION: No acute intrathoracic disease. Head CT 05/13/22 14:30 IMPRESSION: No acute intracranial pathology. Hand/Wrist X-Ray 05/17/22 14:32 IMPRESSION: -No visible fracture or dislocation or destructive process. -Generalized osteopenia. Medications Medications Current Medications Acetaminophen (Acetaminophen 325 Mg Tablet) 975 mg PO Q6H PRN PRN Reason: mild pain, Last Admin: 05/22/22 06:22 Dose: 975 mg Al Hydroxide/Mg Hydroxide (Magnesium Hydrox/Alum Hydrox 30 Ml Oral.Susp) 30 ml PO Q6H PRN PRN Reason: Heartburn/Nausea Amlodipine Besylate (Amlodipine Besylate 10 Mg Tablet) 10 mg PO DAILY [facility]; Protocol Last Admin: 05/25/22 08:23 Dose: 10 mg Atorvastatin Calcium (Atorvastatin Calcium 40 Mg Tablet) 40 mg PO DAILY [facility] Last Admin: 05/25/22 08:24 Dose: 40 mg Clopidogrel Bisulfate (Clopidogrel Bisulfate 75 Mg Tablet) 75 mg PO DAILY [facility] Last Admin: 05/25/22 08:23 Dose: 75 mg Ezetimibe (Ezetimibe 10 Mg Tablet) 10 mg PO DAILY [facility] Last Admin: 05/25/22 08:22 Dose: 10 mg Famotidine (Famotidine 20 Mg Tablet) 20 mg PO DAILY [facility] Last Admin: 05/25/22 08:24 Dose: 20 mg Gabapentin (Gabapentin 100 Mg Capsule) 100 mg PO TID [facility] Last Admin: 05/25/22 08:25 Dose: 100 mg Hydroxyzine HCl (Hydroxyzine Hcl 25 Mg Tablet) 12.5 mg PO TID [facility] Last Admin: 05/25/22 08:22 Dose: 12.5 mg Ibuprofen (Ibuprofen 400 Mg Tablet) 400 mg PO Q6H PRN PRN Reason: headache Last Admin: 05/22/22 20:00 Dose: 400 mg Insulin Glargine (Insulin Glargine,Hum.Rec.Anlog 100 Unit/Ml 10 Ml Vial) 47 unit SUBCUT DAILY [facility] Last Admin: 05/25/22 09:44 Dose: 47 unit Levetiracetam (Levetiracetam 500 Mg Tablet) 500 mg PO BID [facility] Last Admin: 05/25/22 11:22 Dose: 500 mg Loratadine (Loratadine 10 Mg Tablet) 10 mg PO DAILY [facility] Last Admin: 05/25/22 08:24 Dose: 10 mg Lorazepam (Lorazepam 1 Mg Tablet) 1 mg PO TID PRN PRN Reason: Anxiety Last Admin: 05/23/22 14:20 Dose: 1 mg Magnesium Hydroxide (Milk Of Magnesia 30 Ml Oral.Susp) 30 ml PO DAILY PRN PRN Reason: Constipation Metformin HCl (Metformin Hcl Er 500 Mg Tab.Er.24h) 500 mg PO DAILY@0800 [facility] Last Admin: 05/25/22 08:22 Dose: 500 mg Mirtazapine (Mirtazapine 15 Mg Tablet) 15 mg PO BEDTIME [facility] Last Admin: 05/24/22 20:26 Dose: 15 mg Risperidone (Risperidone 0.5 Mg Tablet) 0.5 mg PO BID@0800,1500 [facility] Last Admin: 05/25/22 08:26 Dose: 0.5 mg Risperidone (Risperidone 1 Mg Tablet) 1 mg PO BEDTIME [facility] Last Admin: 05/24/22 20:26 Dose: 1 mg Sertraline HCl (Sertraline Hcl 100 Mg Tablet) 100 mg PO DAILY [facility] Last Admin: 05/25/22 08:22 Dose: 100 mg Tramadol HCl (Tramadol Hcl 50 Mg Tablet) 25 mg PO BID [facility] Last Admin: 05/25/22 08:24 Dose: 25 mg Trazodone HCl (Trazodone Hcl 50 Mg Tablet) 50 mg PO BEDTIME PRN PRN Reason: Insomnia Last Admin: 05/19/22 20:51 Dose: 50 mg Allergies Allergies Allergy/AdvReac Type Severity Reaction Status Date / Time Sulfa (Sulfonamide Allergy Hives Verified 05/13/22 11:29 Antibiotics) codeine AdvReac Gastrointestinal Verified 05/13/22 11:29 Upset Assessment & Plan Assessment & Plan (1) Cognitive impairment: Status: Acute Code(s): R41.89 - Other symptoms and signs involving cognitive functions and awareness (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 Plan 1. Gather collateral information. 2. Continue antidepressants. 3. Continue antibiotics. 4. Continue antipsychotics 05/25/2022: No changes to current treatment plan. I spent minutes with the patient and/or on the patient floor today, greater than?50% of which was spent counseling/coordinating care. Reason for contiued inpatient stay Substantial Risk for: inability to function
[2022-05-25 18:00] VITALS: BP 110/56; PULSE 76; RESP 15; TEMP 36.6; O2SAT 93
[2022-05-25] MEDS: risperiDONE 1 MG TABLET PO (20:15)
[2022-05-25] MEDS: Mirtazapine 15 MG TABLET PO (20:15)
[2022-05-26 00:10] LABS: Glucose, Whole Blood 136 mg/dL (60-115)
[2022-05-26 07:30] VITALS: BP 162/68; PULSE 68; RESP 16; TEMP 35.9; O2SAT 94
[2022-05-26 07:55] LABS: Glucose, Whole Blood 57 mg/dL (60-115)
[2022-05-26] MEDS: levETIRAcetam 500 MG TABLET PO ×2 (08:13→20:32)
[2022-05-26] MEDS: Famotidine 20 MG TABLET PO (08:13)
[2022-05-26] MEDS: Loratadine 10 MG TABLET PO (08:13)
[2022-05-26] MEDS: hydrOXYzine HCL 25 MG TABLET 12.5 MG PO ×3 (08:13→20:32)
[2022-05-26] MEDS: metFORMIN HCl ER 500 MG TAB.ER.24H PO (08:13)
[2022-05-26] MEDS: Sertraline HCL 100 MG TABLET PO (08:13)
[2022-05-26] MEDS: Atorvastatin Calcium 40 MG TABLET PO (08:14)
[2022-05-26] MEDS: traMADoL HCL 50 MG TABLET 25 MG PO ×2 (08:14→20:32)
[2022-05-26] MEDS: risperiDONE 0.5 MG TABLET PO ×2 (08:14→15:08)
[2022-05-26] MEDS: Gabapentin 100 MG CAPSULE PO ×3 (08:16→20:32)
[2022-05-26] MEDS: amLODIPine Besylate 10 MG TABLET PO (08:16)
[2022-05-26] MEDS: Ezetimibe 10 MG TABLET PO (08:16)
[2022-05-26] MEDS: Clopidogrel Bisulfate 75 MG TABLET PO (08:16)
[2022-05-26] MEDS: Insulin Glargine,Hum.rec.anlog 100 UNIT/ML 10 ML VIAL 47 UNIT SUBCUT (08:55)
[2022-05-26 08:57] LABS: Glucose, Whole Blood 192 mg/dL (60-115)
--- NOTE | 2022-05-26 10:01 | P.PNPSI_ITS ---
Subjective Subjective Date of Service: 05/26/22 Reason For Visit: Tactile hallucinations Subjective Notes: Conditional Voluntary Interim History: Presents as less depressed and less tearful. Reports feeling depressed. No overt hallucinations and these do appear to be much less intense as per staff. Allowed blood to be taken today. Sleep has been okay. No medication concerns. Medication Compliance: Yes Side effects from medications: No Attending Groups: No Review of Systems Acute medical concerns: No Review of Systems Review of Systems Unremarkable Mental Status Exam Mental Status Exam Narrative: pleasant and engaged. Less tearful and depressed. Less frequent thoughts of . No active SI. No overt psychosis currently. Insight and judgment okay Diagnostics Vital Signs (24Hr): Vital Signs - 24 hr 05/25/22 18:00 05/26/22 07:30 Temperature 97.8 F 96.7 F L Pulse Rate 76 68 Respiratory Rate 15 16 Blood Pressure 110/56 L 162/68 H Pulse Oximetry 93 94 Oxygen Delivery Method Room Air Room Air BMI result Body Mass Index 27.3 Labs Results: 05/13/22 14:38 05/24/22 09:56 Labs: Laboratory Results - last 48 hr 05/24/22 05/24/22 05/25/22 09:56 20:31 09:50 Sodium 139 Potassium 4.7 Chloride 103 Carbon Dioxide 27 Anion Gap 14 BUN 17 H Creatinine 0.85 Estim Creat Clear Calc 36.7 Estimated GFR > 60 POC Glucose 128 H 334 H Random Glucose 221 H Calcium 8.2 L D 05/25/22 05/26/22 05/26/22 20:14 07:51 08:52 Sodium Potassium Chloride Carbon Dioxide Anion Gap BUN Creatinine Estim Creat Clear Calc Estimated GFR POC Glucose 136 H 57 L* 192 H Random Glucose Calcium Imaging Radiology Impressions: ITS Impressions Chest X-Ray 05/13/22 14:29 IMPRESSION: No acute intrathoracic disease. Head CT 05/13/22 14:30 IMPRESSION: No acute intracranial pathology. Hand/Wrist X-Ray 05/17/22 14:32 IMPRESSION: -No visible fracture or dislocation or destructive process. -Generalized osteopenia. Medications Medications Current Medications Acetaminophen (Acetaminophen 325 Mg Tablet) 975 mg PO Q6H PRN PRN Reason: mild pain, Last Admin: 05/22/22 06:22 Dose: 975 mg Al Hydroxide/Mg Hydroxide (Magnesium Hydrox/Alum Hydrox 30 Ml Oral.Susp) 30 ml PO Q6H PRN PRN Reason: Heartburn/Nausea Amlodipine Besylate (Amlodipine Besylate 10 Mg Tablet) 10 mg PO DAILY [facility]; Protocol Last Admin: 05/26/22 08:16 Dose: 10 mg Atorvastatin Calcium (Atorvastatin Calcium 40 Mg Tablet) 40 mg PO DAILY [facility] Last Admin: 05/26/22 08:14 Dose: 40 mg Clopidogrel Bisulfate (Clopidogrel Bisulfate 75 Mg Tablet) 75 mg PO DAILY [facility] Last Admin: 05/26/22 08:16 Dose: 75 mg Dextrose (Dextrose 50 % 25 Gm/50 Ml Syringe) 25 gm IVPUSH Q15M PRN; Protocol PRN Reason: per Hypoglycemia Standing Ord. Ezetimibe (Ezetimibe 10 Mg Tablet) 10 mg PO DAILY [facility] Last Admin: 05/26/22 08:16 Dose: 10 mg Famotidine (Famotidine 20 Mg Tablet) 20 mg PO DAILY [facility] Last Admin: 05/26/22 08:13 Dose: 20 mg Gabapentin (Gabapentin 100 Mg Capsule) 100 mg PO TID [facility] Last Admin: 05/26/22 08:16 Dose: 100 mg Glucose (Glucose Gel 15 Gm Gel..Gram.) 15 gm PO Q15M PRN; Protocol PRN Reason: per Hypoglycemia Standing Ord. Hydroxyzine HCl (Hydroxyzine Hcl 25 Mg Tablet) 12.5 mg PO TID [facility] Last Admin: 05/26/22 08:13 Dose: 12.5 mg Ibuprofen (Ibuprofen 400 Mg Tablet) 400 mg PO Q6H PRN PRN Reason: headache Last Admin: 05/22/22 20:00 Dose: 400 mg Insulin Glargine (Insulin Glargine,Hum.Rec.Anlog 100 Unit/Ml 10 Ml Vial) 47 unit SUBCUT DAILY [facility] Last Admin: 05/26/22 08:55 Dose: 47 unit Insulin Human Lispro (Insulin Lispro 100 Unit/Ml 3 Ml Vial) 0 unit SUBCUT QIDACHS [facility]; Protocol Stop: 06/09/22 11:29 Levetiracetam (Levetiracetam 500 Mg Tablet) 500 mg PO BID [facility] Last Admin: 05/26/22 08:13 Dose: 500 mg Loratadine (Loratadine 10 Mg Tablet) 10 mg PO DAILY [facility] Last Admin: 05/26/22 08:13 Dose: 10 mg Lorazepam (Lorazepam 1 Mg Tablet) 1 mg PO TID PRN PRN Reason: Anxiety Last Admin: 05/23/22 14:20 Dose: 1 mg Magnesium Hydroxide (Milk Of Magnesia 30 Ml Oral.Susp) 30 ml PO DAILY PRN PRN Reason: Constipation Metformin HCl (Metformin Hcl Er 500 Mg Tab.Er.24h) 500 mg PO DAILY@0800 [facility] Last Admin: 05/26/22 08:13 Dose: 500 mg Mirtazapine (Mirtazapine 15 Mg Tablet) 15 mg PO BEDTIME [facility] Last Admin: 05/25/22 20:15 Dose: 15 mg Risperidone (Risperidone 0.5 Mg Tablet) 0.5 mg PO BID@0800,1500 [facility] Last Admin: 05/26/22 08:14 Dose: 0.5 mg Risperidone (Risperidone 1 Mg Tablet) 1 mg PO BEDTIME [facility] Last Admin: 05/25/22 20:15 Dose: 1 mg Sertraline HCl (Sertraline Hcl 100 Mg Tablet) 100 mg PO DAILY [facility] Last Admin: 05/26/22 08:13 Dose: 100 mg Tramadol HCl (Tramadol Hcl 50 Mg Tablet) 25 mg PO BID [facility] Last Admin: 05/26/22 08:14 Dose: 25 mg Trazodone HCl (Trazodone Hcl 50 Mg Tablet) 50 mg PO BEDTIME PRN PRN Reason: Insomnia Last Admin: 05/19/22 20:51 Dose: 50 mg Allergies Allergies Allergy/AdvReac Type Severity Reaction Status Date / Time Sulfa (Sulfonamide Allergy Hives Verified 05/13/22 11:29 Antibiotics) codeine AdvReac Gastrointestinal Verified 05/13/22 11:29 Upset Assessment & Plan Assessment & Plan (1) Cognitive impairment: Status: Acute Code(s): R41.89 - Other symptoms and signs involving cognitive functions and awareness (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 Plan 1. Gather collateral information. 2. Continue antidepressants. 3. Continue antibiotics. 4. Continue antipsychotics 05/26/2022: No changes to current treatment plan. I spent minutes with the patient and/or on the patient floor today, greater than?50% of which was spent counseling/coordinating care. Reason for contiued inpatient stay Substantial Risk for: inability to function
[2022-05-26 11:23] LABS: Glucose, Whole Blood 96 mg/dL (60-115)
[2022-05-26 16:23] LABS: Glucose, Whole Blood 85 mg/dL (60-115)
[2022-05-26 20:15] VITALS: BP 152/70; PULSE 90; RESP 16; TEMP 36.3; O2SAT 97
[2022-05-26 20:27] LABS: Glucose, Whole Blood 158 mg/dL (60-115)
[2022-05-26] MEDS: Insulin Lispro 100 UNIT/ML 3 ML VIAL SUBCUT (20:30)
[2022-05-26] MEDS: risperiDONE 1 MG TABLET PO (20:32)
[2022-05-26] MEDS: Mirtazapine 15 MG TABLET PO (20:32)
[2022-05-26] MEDS: Acetaminophen 325 MG TABLET 975 MG PO (23:30)
[2022-05-27 05:17] LABS: Estimated Average Glucose 151 mg/dL; Hemoglobin A1c % 6.9 %
[2022-05-27 06:00] VITALS: BP 127/61; PULSE 73; RESP 16; TEMP 35.8; O2SAT 95
[2022-05-27 08:03] LABS: Glucose, Whole Blood 65 mg/dL (60-115)
[2022-05-27] MEDS: hydrOXYzine HCL 25 MG TABLET 12.5 MG PO ×2 (09:34→20:53)
[2022-05-27] MEDS: Sertraline HCL 100 MG TABLET PO (09:34)
[2022-05-27] MEDS: Ezetimibe 10 MG TABLET PO (09:34)
[2022-05-27] MEDS: traMADoL HCL 50 MG TABLET 25 MG PO (09:35)
[2022-05-27] MEDS: Clopidogrel Bisulfate 75 MG TABLET PO (09:37)
[2022-05-27] MEDS: risperiDONE 0.5 MG TABLET PO (09:37)
[2022-05-27] MEDS: Loratadine 10 MG TABLET PO (09:37)
[2022-05-27] MEDS: Gabapentin 100 MG CAPSULE PO (09:37)
[2022-05-27] MEDS: Famotidine 20 MG TABLET PO (09:37)
[2022-05-27] MEDS: amLODIPine Besylate 10 MG TABLET PO (09:37)
[2022-05-27] MEDS: Atorvastatin Calcium 40 MG TABLET PO (09:37)
[2022-05-27] MEDS: levETIRAcetam 500 MG TABLET PO ×2 (09:37→20:52)
--- NOTE | 2022-05-27 10:00 | P.PNPSI_ITS ---
Subjective Subjective Date of Service: 05/27/22 Reason For Visit: Tactile hallucinations Subjective Notes: Conditional Voluntary Interim History: The nursing staff reported that last Friday the patient was very dysphoric verbalizing suicidal ideation and she needed to be on one-to-one. The staff has reported that she has been irritable at times. Today, she complained that she has more pain so we will increase the tramadol up to 50 mg p.o. b.i.d.. She feels very dysphoric and tired we discussed options and will increase all of the up to 150 mg p.o. daily. According to the staff, the patient has not complained about bugs or any other somatic complaints recently. Medication Compliance: Yes Attending Groups: No Review of Systems Medical Review of Systems: unchanged Mental Status Exam Mental Status Exam Patient Appearance: Appropriate Patient Orientation: Person Level of Consciousness: Awake Patient Behavior: Guarded and Passive Mood Description: Withdrawn Affect Description: Constricted Patient Cognition Impaired: Yes Ability to Follow Directions: Good Speech Pattern: Clear Hallucinations: None Delusions: Not Present Thought Process: Distracted and Evasive Thought Content: positive for [place] Judgement: Fair Diagnostics Vital Signs (24Hr): Vital Signs - 24 hr 05/26/22 20:15 Temperature 97.3 F Pulse Rate 90 Respiratory Rate 16 Blood Pressure 152/70 H Pulse Oximetry 97 Oxygen Delivery Method Room Air BMI result Body Mass Index 27.3 Labs Results: 05/13/22 14:38 05/24/22 09:56 Labs: Laboratory Results - last 48 hr 05/25/22 05/26/22 05/26/22 20:14 07:51 08:52 POC Glucose 136 H 57 L* 192 H Estimat Average Glucose Hemoglobin A1c % 05/26/22 05/26/22 05/26/22 09:48 11:19 16:19 POC Glucose 96 85 Estimat Average Glucose 151 Hemoglobin A1c % 6.9 05/26/22 05/27/22 20:23 08:00 POC Glucose 158 H 65 Estimat Average Glucose Hemoglobin A1c % Imaging Radiology Impressions: ITS Impressions Chest X-Ray 05/13/22 14:29 IMPRESSION: No acute intrathoracic disease. Head CT 05/13/22 14:30 IMPRESSION: No acute intracranial pathology. Hand/Wrist X-Ray 05/17/22 14:32 IMPRESSION: -No visible fracture or dislocation or destructive process. -Generalized osteopenia. Medications Medications Current Medications Acetaminophen (Acetaminophen 325 Mg Tablet) 975 mg PO Q6H PRN PRN Reason: mild pain, Last Admin: 05/26/22 23:30 Dose: 975 mg Al Hydroxide/Mg Hydroxide (Magnesium Hydrox/Alum Hydrox 30 Ml Oral.Susp) 30 ml PO Q6H PRN PRN Reason: Heartburn/Nausea Amlodipine Besylate (Amlodipine Besylate 10 Mg Tablet) 10 mg PO DAILY [facility]; Protocol Last Admin: 05/27/22 09:37 Dose: 10 mg Atorvastatin Calcium (Atorvastatin Calcium 40 Mg Tablet) 40 mg PO DAILY [facility] Last Admin: 05/27/22 09:37 Dose: 40 mg Clopidogrel Bisulfate (Clopidogrel Bisulfate 75 Mg Tablet) 75 mg PO DAILY [facility] Last Admin: 05/27/22 09:37 Dose: 75 mg Dextrose (Dextrose 50 % 25 Gm/50 Ml Syringe) 25 gm IVPUSH Q15M PRN; Protocol PRN Reason: per Hypoglycemia Standing Ord. Ezetimibe (Ezetimibe 10 Mg Tablet) 10 mg PO DAILY [facility] Last Admin: 05/27/22 09:34 Dose: 10 mg Famotidine (Famotidine 20 Mg Tablet) 20 mg PO DAILY [facility] Last Admin: 05/27/22 09:37 Dose: 20 mg Gabapentin (Gabapentin 100 Mg Capsule) 100 mg PO TID [facility] Last Admin: 05/27/22 09:37 Dose: 100 mg Glucose (Glucose Gel 15 Gm Gel..Gram.) 15 gm PO Q15M PRN; Protocol PRN Reason: per Hypoglycemia Standing Ord. Hydroxyzine HCl (Hydroxyzine Hcl 25 Mg Tablet) 12.5 mg PO TID [facility] Last Admin: 05/27/22 09:34 Dose: 12.5 mg Ibuprofen (Ibuprofen 400 Mg Tablet) 400 mg PO Q6H PRN PRN Reason: headache Last Admin: 05/22/22 20:00 Dose: 400 mg Insulin Glargine (Insulin Glargine,Hum.Rec.Anlog 100 Unit/Ml 10 Ml Vial) 47 unit SUBCUT DAILY [facility] Last Admin: 05/26/22 08:55 Dose: 47 unit Insulin Human Lispro (Insulin Lispro 100 Unit/Ml 3 Ml Vial) 0 unit SUBCUT QIDACHS [facility]; Protocol Stop: 06/09/22 11:29 Last Admin: 05/27/22 09:49 Dose: Not Given Levetiracetam (Levetiracetam 500 Mg Tablet) 500 mg PO BID [facility] Last Admin: 05/27/22 09:37 Dose: 500 mg Loratadine (Loratadine 10 Mg Tablet) 10 mg PO DAILY [facility] Last Admin: 05/27/22 09:37 Dose: 10 mg Lorazepam (Lorazepam 1 Mg Tablet) 1 mg PO TID PRN PRN Reason: Anxiety Last Admin: 05/23/22 14:20 Dose: 1 mg Magnesium Hydroxide (Milk Of Magnesia 30 Ml Oral.Susp) 30 ml PO DAILY PRN PRN Reason: Constipation Metformin HCl (Metformin Hcl Er 500 Mg Tab.Er.24h) 500 mg PO DAILY@0800 [facility] Last Admin: 05/26/22 08:13 Dose: 500 mg Mirtazapine (Mirtazapine 15 Mg Tablet) 15 mg PO BEDTIME [facility] Last Admin: 05/26/22 20:32 Dose: 15 mg Risperidone (Risperidone 0.5 Mg Tablet) 0.5 mg PO BID@0800,1500 [facility] Last Admin: 05/27/22 09:37 Dose: 0.5 mg Risperidone (Risperidone 1 Mg Tablet) 1 mg PO BEDTIME [facility] Last Admin: 05/26/22 20:32 Dose: 1 mg Sertraline HCl (Sertraline Hcl 50 Mg Tablet) 150 mg PO DAILY [facility] Tramadol HCl (Tramadol Hcl 50 Mg Tablet) 50 mg PO BID [facility] Trazodone HCl (Trazodone Hcl 50 Mg Tablet) 50 mg PO BEDTIME PRN PRN Reason: Insomnia Last Admin: 05/19/22 20:51 Dose: 50 mg Allergies Allergies Allergy/AdvReac Type Severity Reaction Status Date / Time Sulfa (Sulfonamide Allergy Hives Verified 05/13/22 11:29 Antibiotics) codeine AdvReac Gastrointestinal Verified 05/13/22 11:29 Upset Assessment & Plan Assessment & Plan (1) Cognitive impairment: Status: Acute Code(s): R41.89 - Other symptoms and signs involving cognitive functions and awareness (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 Plan 1. Gather collateral information. 2. Continue antidepressants. Increase Zoloft up to 150 mg po daily on 05/27 3. Continue antibiotics. 4. Continue antipsychotics 5. Family meeting today I spent __20____ minutes with the patient and/or on the patient floor today, greater than?50% of which was spent counseling/coordinating care. Reason for contiued inpatient stay Substantial Risk for: inability to function, rapid decompensation and med/psych decompensation
[2022-05-27] MEDS: Insulin Glargine,Hum.rec.anlog 100 UNIT/ML 10 ML VIAL 47 UNIT SUBCUT (10:06)
[2022-05-27] MEDS: metFORMIN HCl ER 500 MG TAB.ER.24H PO (10:07)
[2022-05-27 11:42] LABS: Glucose, Whole Blood 150 mg/dL (60-115)
[2022-05-27 11:42] LABS: Glucose, Whole Blood 212 mg/dL (60-115)
[2022-05-27] MEDS: Acetaminophen 325 MG TABLET 975 MG PO (13:03)
[2022-05-27] MEDS: LORazepam 1 MG TABLET PO ×2 (13:04→20:52)
[2022-05-27 16:41] LABS: Glucose, Whole Blood 121 mg/dL (60-115)
[2022-05-27 18:00] VITALS: BP 135/65; PULSE 80; RESP 18; TEMP 36.9; O2SAT 96
[2022-05-27] MEDS: Gabapentin 100 MG CAPSULE 200 MG PO (20:50)
[2022-05-27] MEDS: traMADoL HCL 50 MG TABLET PO (20:51)
[2022-05-27] MEDS: Mirtazapine 15 MG TABLET PO (20:52)
[2022-05-27] MEDS: risperiDONE 1 MG TABLET PO (20:53)
[2022-05-27 21:00] LABS: Glucose, Whole Blood 171 mg/dL (60-115)
[2022-05-27] MEDS: Insulin Lispro 100 UNIT/ML 3 ML VIAL SUBCUT (21:03)
[2022-05-28 01:07] LABS: Glucose, Whole Blood 54 mg/dL (60-115)
[2022-05-28 01:25] VITALS: BP 128/63; PULSE 86; RESP 16; O2SAT 97
[2022-05-28 01:32] LABS: Glucose, Whole Blood 122 mg/dL (60-115)
--- NOTE | 2022-05-28 02:36 | PC.NURSE ---
P. HYPOGLYCEMIA POC 54 I. ASSESSMENT- PT STATES SHE DOES NOT FEEL RIGHT. HER SKIN IS WARM/DIAPHORETIC. DUE TO PAST EXPERIENCE WITH PT A POC WAS IMMEDIATELY CHECKED WHICH WAS 54 I. PT GIVEN AND DRANK 2 CUPS OF ORANGE JUICE. SHE WAS GIVEN 4 GRAM CRACKERS WHICH SHE ATE. SHE WAS ALSO GIVEN A PEANUT BUTTER SANDWICH WHICH SHE ATE. I. RECHECK OF POC 122 I. VITAL SIGNS P 86 BPM RR 18 SAO2 97(O2 2LPM) B/P 128/63
[2022-05-28 07:42] LABS: Glucose, Whole Blood 81 mg/dL (60-115)
[2022-05-28 08:00] VITALS: BP 139/60; PULSE 69; RESP 16; TEMP 35.9; O2SAT 94
[2022-05-28] MEDS: Atorvastatin Calcium 40 MG TABLET PO (08:04)
[2022-05-28] MEDS: metFORMIN HCl ER 500 MG TAB.ER.24H PO (08:05)
[2022-05-28] MEDS: Famotidine 20 MG TABLET PO (08:05)
[2022-05-28] MEDS: Clopidogrel Bisulfate 75 MG TABLET PO (08:05)
[2022-05-28] MEDS: Sertraline HCL 50 MG TABLET 150 MG PO (08:06)
[2022-05-28] MEDS: amLODIPine Besylate 10 MG TABLET PO (08:06)
[2022-05-28] MEDS: Ezetimibe 10 MG TABLET PO (08:07)
[2022-05-28] MEDS: risperiDONE 0.5 MG TABLET PO ×2 (08:07→14:52)
[2022-05-28] MEDS: levETIRAcetam 500 MG TABLET PO ×2 (08:07→21:35)
[2022-05-28] MEDS: traMADoL HCL 50 MG TABLET PO ×2 (08:08→21:35)
[2022-05-28] MEDS: Loratadine 10 MG TABLET PO (08:08)
[2022-05-28] MEDS: Gabapentin 100 MG CAPSULE 200 MG PO ×3 (08:08→21:34)
[2022-05-28] MEDS: hydrOXYzine HCL 25 MG TABLET 12.5 MG PO ×3 (08:09→21:35)
[2022-05-28] MEDS: Insulin Glargine,Hum.rec.anlog 100 UNIT/ML 10 ML VIAL 47 UNIT SUBCUT (09:13)
--- NOTE | 2022-05-28 15:43 | HO.PSYCHPN ---
Subjective Subjective Date of Service: 05/28/22 Reason For Visit: Tactile hallucinations Subjective Notes: Conditional Voluntary Interim History: The nursing staff reported that the patient has been compliant with treatment. Her fasting blood sugars were a little low. On interview the patient denies new symptoms she states that she is taking her medications and she still feels depressed. Yesterday we had a very bad family meeting she was accusatory against her daughter and she was extremely hurtful and stated that she was only depressed. Mental Status Exam Mental Status Exam Patient Appearance: Well Grooomed Patient Orientation: Person and Situation Level of Consciousness: Awake Patient Behavior: Cooperative Mood Description: Withdrawn Affect Description: Labile Patient Cognition Impaired: Yes Ability to Follow Directions: Good Speech Pattern: Clear Hallucinations: None Delusions: Paranoid Ideation Thought Process: Distracted Thought Content: positive for [place] Judgement: Fair Diagnostics Vital Signs (24Hr): Vital Signs - 24 hr 05/27/22 18:00 05/28/22 01:25 05/28/22 08:00 Temperature 98.4 F 96.6 F L Pulse Rate 80 86 69 Respiratory Rate 18 16 16 Blood Pressure 135/65 128/63 139/60 Pulse Oximetry 96 97 94 Oxygen Delivery Method Room Air Nasal Cannula Room Air Oxygen Flow Rate 2 BMI result Body Mass Index 27.3 Labs Results: 05/13/22 14:38 05/24/22 09:56 Labs: Laboratory Results - last 48 hr 05/26/22 05/26/22 05/26/22 09:48 16:19 20:23 POC Glucose 85 158 H Estimat Average Glucose 151 Hemoglobin A1c % 6.9 05/27/22 05/27/22 05/27/22 08:00 10:05 11:37 POC Glucose 65 212 H 150 H Estimat Average Glucose Hemoglobin A1c % 05/27/22 05/27/22 05/28/22 16:33 20:47 01:02 POC Glucose 121 H 171 H 54 L* Estimat Average Glucose Hemoglobin A1c % 05/28/22 05/28/22 01:28 07:38 POC Glucose 122 H 81 Estimat Average Glucose Hemoglobin A1c % Imaging Radiology Impressions: ITS Impressions Chest X-Ray 05/13/22 14:29 IMPRESSION: No acute intrathoracic disease. Head CT 05/13/22 14:30 IMPRESSION: No acute intracranial pathology. Hand/Wrist X-Ray 05/17/22 14:32 IMPRESSION: -No visible fracture or dislocation or destructive process. -Generalized osteopenia. Medications Medications Current Medications Acetaminophen (Acetaminophen 325 Mg Tablet) 975 mg PO Q6H PRN PRN Reason: mild pain, Last Admin: 05/27/22 13:03 Dose: 975 mg Al Hydroxide/Mg Hydroxide (Magnesium Hydrox/Alum Hydrox 30 Ml Oral.Susp) 30 ml PO Q6H PRN PRN Reason: Heartburn/Nausea Amlodipine Besylate (Amlodipine Besylate 10 Mg Tablet) 10 mg PO DAILY [facility]; Protocol Last Admin: 05/28/22 08:06 Dose: 10 mg Atorvastatin Calcium (Atorvastatin Calcium 40 Mg Tablet) 40 mg PO DAILY [facility] Last Admin: 05/28/22 08:04 Dose: 40 mg Clopidogrel Bisulfate (Clopidogrel Bisulfate 75 Mg Tablet) 75 mg PO DAILY [facility] Last Admin: 05/28/22 08:05 Dose: 75 mg Dextrose (Dextrose 50 % 25 Gm/50 Ml Syringe) 25 gm IVPUSH Q15M PRN; Protocol PRN Reason: per Hypoglycemia Standing Ord. Ezetimibe (Ezetimibe 10 Mg Tablet) 10 mg PO DAILY [facility] Last Admin: 05/28/22 08:07 Dose: 10 mg Famotidine (Famotidine 20 Mg Tablet) 20 mg PO DAILY [facility] Last Admin: 05/28/22 08:05 Dose: 20 mg Gabapentin (Gabapentin 100 Mg Capsule) 200 mg PO TID [facility] Last Admin: 05/28/22 14:51 Dose: 200 mg Glucose (Glucose Gel 15 Gm Gel..Gram.) 15 gm PO Q15M PRN; Protocol PRN Reason: per Hypoglycemia Standing Ord. Hydroxyzine HCl (Hydroxyzine Hcl 25 Mg Tablet) 12.5 mg PO TID [facility] Last Admin: 05/28/22 14:51 Dose: 12.5 mg Ibuprofen (Ibuprofen 400 Mg Tablet) 400 mg PO Q6H PRN PRN Reason: headache Last Admin: 05/22/22 20:00 Dose: 400 mg Insulin Glargine (Insulin Glargine,Hum.Rec.Anlog 100 Unit/Ml 10 Ml Vial) 47 unit SUBCUT DAILY [facility] Last Admin: 05/28/22 09:13 Dose: 47 unit Insulin Human Lispro (Insulin Lispro 100 Unit/Ml 3 Ml Vial) 0 unit SUBCUT QIDACHS [facility]; Protocol Stop: 06/09/22 11:29 Last Admin: 05/28/22 12:42 Dose: Not Given Levetiracetam (Levetiracetam 500 Mg Tablet) 500 mg PO BID [facility] Last Admin: 05/28/22 08:07 Dose: 500 mg Loratadine (Loratadine 10 Mg Tablet) 10 mg PO DAILY [facility] Last Admin: 05/28/22 08:08 Dose: 10 mg Magnesium Hydroxide (Milk Of Magnesia 30 Ml Oral.Susp) 30 ml PO DAILY PRN PRN Reason: Constipation Metformin HCl (Metformin Hcl Er 500 Mg Tab.Er.24h) 500 mg PO DAILY@0800 [facility] Last Admin: 05/28/22 08:05 Dose: 500 mg Mirtazapine (Mirtazapine 15 Mg Tablet) 15 mg PO BEDTIME [facility] Last Admin: 05/27/22 20:52 Dose: 15 mg Risperidone (Risperidone 0.5 Mg Tablet) 0.5 mg PO BID@0800,1500 [facility] Last Admin: 05/28/22 14:52 Dose: 0.5 mg Risperidone (Risperidone 1 Mg Tablet) 1 mg PO BEDTIME [facility] Last Admin: 05/27/22 20:53 Dose: 1 mg Sertraline HCl (Sertraline Hcl 50 Mg Tablet) 150 mg PO DAILY [facility] Last Admin: 05/28/22 08:06 Dose: 150 mg Tramadol HCl (Tramadol Hcl 50 Mg Tablet) 50 mg PO BID [facility] Last Admin: 05/28/22 08:08 Dose: 50 mg Trazodone HCl (Trazodone Hcl 50 Mg Tablet) 50 mg PO BEDTIME PRN PRN Reason: Insomnia Last Admin: 05/19/22 20:51 Dose: 50 mg Allergies Allergies Allergy/AdvReac Type Severity Reaction Status Date / Time Sulfa (Sulfonamide Allergy Hives Verified 05/13/22 11:29 Antibiotics) codeine AdvReac Gastrointestinal Verified 05/13/22 11:29 Upset Assessment & Plan Assessment & Plan (1) Cognitive impairment: Status: Acute Code(s): R41.89 - Other symptoms and signs involving cognitive functions and awareness (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 Plan 1. Gather collateral information. 2. Continue antidepressants. Increase Zoloft up to 150 mg po daily on 05/27 3. Continue antibiotics. 4. Continue antipsychotics I spent ___20___ minutes with the patient and/or on the patient floor today, greater than?50% of which was spent counseling/coordinating care. Reason for contiued inpatient stay Substantial Risk for: inability to function, rapid decompensation and med/psych decompensation
[2022-05-28 16:58] LABS: Glucose, Whole Blood 114 mg/dL (60-115)
[2022-05-28] MEDS: Insulin Lispro 100 UNIT/ML 3 ML VIAL SUBCUT (17:23)
[2022-05-28 19:40] VITALS: BP 116/61; PULSE 70; RESP 16; TEMP 36.6; O2SAT 92
[2022-05-28] MEDS: Mirtazapine 15 MG TABLET PO (21:34)
[2022-05-28] MEDS: risperiDONE 1 MG TABLET PO (21:35)
[2022-05-28 21:50] LABS: Glucose, Whole Blood 76 mg/dL (60-115)
--- NOTE | 2022-05-28 22:32 | PC.NURSE ---
Patient ringing call moody reporting to Clinician she banged her hand on the wall when walking out of the bathroom; when T/W entered room to access patient she was sitting on side of bed an her story changed, pt reporting falling banging against the wall, and I was on the floor crying before I got up. Patient was on camera at time of incident and no fall was reported from Observation Room. T/W assessed patient VS WNL, no redding on body, no tenderness; patient reported soreness and ice pack given for comfort. Nursing Shotblaster aware.
[2022-05-29 08:08] VITALS: BP 142/67; PULSE 73; RESP 16; TEMP 36.3; O2SAT 92
[2022-05-29 08:09] LABS: Glucose, Whole Blood 49 mg/dL (60-115)
[2022-05-29] MEDS: levETIRAcetam 500 MG TABLET PO ×2 (08:12→20:12)
[2022-05-29] MEDS: traMADoL HCL 50 MG TABLET PO ×2 (08:12→20:11)
[2022-05-29] MEDS: Sertraline HCL 50 MG TABLET 150 MG PO (08:13)
[2022-05-29] MEDS: Gabapentin 100 MG CAPSULE 200 MG PO ×3 (08:13→20:12)
[2022-05-29] MEDS: hydrOXYzine HCL 25 MG TABLET 12.5 MG PO ×3 (08:13→20:10)
[2022-05-29] MEDS: Insulin Glargine,Hum.rec.anlog 100 UNIT/ML 10 ML VIAL 47 UNIT SUBCUT (08:15)
[2022-05-29] MEDS: Clopidogrel Bisulfate 75 MG TABLET PO (08:15)
[2022-05-29] MEDS: Ezetimibe 10 MG TABLET PO (08:16)
[2022-05-29] MEDS: metFORMIN HCl ER 500 MG TAB.ER.24H PO (08:16)
[2022-05-29] MEDS: Loratadine 10 MG TABLET PO (08:16)
[2022-05-29] MEDS: Atorvastatin Calcium 40 MG TABLET PO (08:16)
[2022-05-29] MEDS: Famotidine 20 MG TABLET PO (08:16)
[2022-05-29] MEDS: risperiDONE 0.5 MG TABLET PO ×2 (08:17→15:35)
[2022-05-29] MEDS: amLODIPine Besylate 10 MG TABLET PO (08:17)
[2022-05-29 11:15] LABS: Glucose, Whole Blood 322 mg/dL (60-115)
[2022-05-29] MEDS: Insulin Lispro 100 UNIT/ML 3 ML VIAL SUBCUT ×2 (11:17→20:22)
--- NOTE | 2022-05-29 13:26 | MHC.CLN ---
NUTRITION EPISODES OF LOW BLOOD SUGARS NOTED. DIET=DIABETIC 2000 KCALS-APPROPRIATE. RX FOR DM MEDS LANTUS, HUMALOG, AND METFORMIN. CONTINUE TO FOLLOW BLOOD SUGARS.
--- NOTE | 2022-05-29 14:59 | HO.PSYCHPN ---
Subjective Subjective Date of Service: 05/29/22 Reason For Visit: Tactile hallucinations Subjective Notes: Conditional Voluntary Interim History: The nursing staff reported that the patient was been compliant with treatment. Occupational therapy reported that she has been seen and treated and the change her cast with a purple wanted it is more comfortable for her. On interview the patient reports on symptoms she stated that she fell but it was unwitnessed. Mental Status Exam Mental Status Exam Patient Appearance: Well Grooomed Patient Orientation: Person and Situation Level of Consciousness: Awake Patient Behavior: Cooperative Mood Description: Withdrawn Affect Description: Constricted Patient Cognition Impaired: Yes Ability to Follow Directions: Good Speech Pattern: Clear Hallucinations: None Delusions: Paranoid Ideation Thought Process: Distracted and Slowed Thinking Thought Content: positive for [place] and positive for Circumstantial Judgement: Fair Diagnostics Vital Signs (24Hr): Vital Signs - 24 hr 05/28/22 19:40 05/29/22 08:08 Temperature 97.8 F 97.3 F Pulse Rate 70 73 Respiratory Rate 16 16 Blood Pressure 116/61 142/67 H Pulse Oximetry 92 92 Oxygen Delivery Method Room Air Room Air BMI result Body Mass Index 27.3 Labs Results: 05/13/22 14:38 05/24/22 09:56 Labs: Laboratory Results - last 48 hr 05/27/22 05/27/22 05/28/22 16:33 20:47 01:02 POC Glucose 121 H 171 H 54 L* 05/28/22 05/28/22 05/28/22 01:28 07:38 16:55 POC Glucose 122 H 81 114 05/28/22 05/29/22 05/29/22 21:42 07:32 11:12 POC Glucose 76 49 L* 322 H Imaging Radiology Impressions: ITS Impressions Chest X-Ray 05/13/22 14:29 IMPRESSION: No acute intrathoracic disease. Head CT 05/13/22 14:30 IMPRESSION: No acute intracranial pathology. Hand/Wrist X-Ray 05/17/22 14:32 IMPRESSION: -No visible fracture or dislocation or destructive process. -Generalized osteopenia. Medications Medications Current Medications Acetaminophen (Acetaminophen 325 Mg Tablet) 975 mg PO Q6H PRN PRN Reason: mild pain, Last Admin: 05/27/22 13:03 Dose: 975 mg Al Hydroxide/Mg Hydroxide (Magnesium Hydrox/Alum Hydrox 30 Ml Oral.Susp) 30 ml PO Q6H PRN PRN Reason: Heartburn/Nausea Amlodipine Besylate (Amlodipine Besylate 10 Mg Tablet) 10 mg PO DAILY [facility]; Protocol Last Admin: 05/29/22 08:17 Dose: 10 mg Atorvastatin Calcium (Atorvastatin Calcium 40 Mg Tablet) 40 mg PO DAILY [facility] Last Admin: 05/29/22 08:16 Dose: 40 mg Clopidogrel Bisulfate (Clopidogrel Bisulfate 75 Mg Tablet) 75 mg PO DAILY [facility] Last Admin: 05/29/22 08:15 Dose: 75 mg Dextrose (Dextrose 50 % 25 Gm/50 Ml Syringe) 25 gm IVPUSH Q15M PRN; Protocol PRN Reason: per Hypoglycemia Standing Ord. Ezetimibe (Ezetimibe 10 Mg Tablet) 10 mg PO DAILY [facility] Last Admin: 05/29/22 08:16 Dose: 10 mg Famotidine (Famotidine 20 Mg Tablet) 20 mg PO DAILY [facility] Last Admin: 05/29/22 08:16 Dose: 20 mg Gabapentin (Gabapentin 100 Mg Capsule) 200 mg PO TID [facility] Last Admin: 05/29/22 08:13 Dose: 200 mg Glucose (Glucose Gel 15 Gm Gel..Gram.) 15 gm PO Q15M PRN; Protocol PRN Reason: per Hypoglycemia Standing Ord. Hydroxyzine HCl (Hydroxyzine Hcl 25 Mg Tablet) 12.5 mg PO TID [facility] Last Admin: 05/29/22 08:13 Dose: 12.5 mg Ibuprofen (Ibuprofen 400 Mg Tablet) 400 mg PO Q6H PRN PRN Reason: headache Last Admin: 05/22/22 20:00 Dose: 400 mg Insulin Glargine (Insulin Glargine,Hum.Rec.Anlog 100 Unit/Ml 10 Ml Vial) 47 unit SUBCUT DAILY [facility] Last Admin: 05/29/22 08:15 Dose: 47 unit Insulin Human Lispro (Insulin Lispro 100 Unit/Ml 3 Ml Vial) 0 unit SUBCUT QIDACHS [facility]; Protocol Stop: 06/09/22 11:29 Last Admin: 05/29/22 11:17 Dose: 10 unit Levetiracetam (Levetiracetam 500 Mg Tablet) 500 mg PO BID [facility] Last Admin: 05/29/22 08:12 Dose: 500 mg Loratadine (Loratadine 10 Mg Tablet) 10 mg PO DAILY [facility] Last Admin: 05/29/22 08:16 Dose: 10 mg Magnesium Hydroxide (Milk Of Magnesia 30 Ml Oral.Susp) 30 ml PO DAILY PRN PRN Reason: Constipation Metformin HCl (Metformin Hcl Er 500 Mg Tab.Er.24h) 500 mg PO DAILY@0800 [facility] Last Admin: 05/29/22 08:16 Dose: 500 mg Mirtazapine (Mirtazapine 15 Mg Tablet) 15 mg PO BEDTIME [facility] Last Admin: 05/28/22 21:34 Dose: 15 mg Risperidone (Risperidone 0.5 Mg Tablet) 0.5 mg PO BID@0800,1500 [facility] Last Admin: 05/29/22 08:17 Dose: 0.5 mg Risperidone (Risperidone 1 Mg Tablet) 1 mg PO BEDTIME [facility] Last Admin: 05/28/22 21:35 Dose: 1 mg Sertraline HCl (Sertraline Hcl 50 Mg Tablet) 150 mg PO DAILY [facility] Last Admin: 05/29/22 08:13 Dose: 150 mg Tramadol HCl (Tramadol Hcl 50 Mg Tablet) 50 mg PO BID [facility] Last Admin: 05/29/22 08:12 Dose: 50 mg Trazodone HCl (Trazodone Hcl 50 Mg Tablet) 50 mg PO BEDTIME PRN PRN Reason: Insomnia Last Admin: 05/19/22 20:51 Dose: 50 mg Allergies Allergies Allergy/AdvReac Type Severity Reaction Status Date / Time Sulfa (Sulfonamide Allergy Hives Verified 05/13/22 11:29 Antibiotics) codeine AdvReac Gastrointestinal Verified 05/13/22 11:29 Upset Assessment & Plan Assessment & Plan (1) Cognitive impairment: Status: Acute Code(s): R41.89 - Other symptoms and signs involving cognitive functions and awareness (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 Plan 1. Gather collateral information. 2. Continue antidepressants. Increase Zoloft up to 150 mg po daily on 05/27 3. Continue antibiotics. 4. Continue antipsychotics 5. Gabapentin was increased up to 200 mg p.o. t.i.d. to target mood lability I spent ___20___ minutes with the patient and/or on the patient floor today, greater than?50% of which was spent counseling/coordinating care. Reason for contiued inpatient stay Substantial Risk for: inability to function, rapid decompensation and med/psych decompensation
[2022-05-29 16:49] LABS: Glucose, Whole Blood 49 mg/dL (60-115)
[2022-05-29 17:34] LABS: Glucose, Whole Blood 81 mg/dL (60-115)
[2022-05-29 18:00] VITALS: BP 124/60; PULSE 72; RESP 20; TEMP 36.6; O2SAT 95
[2022-05-29 18:03] LABS: Glucose, Whole Blood 101 mg/dL (60-115)
[2022-05-29] MEDS: LORazepam 0.5 MG TABLET 0.25 MG PO (20:11)
[2022-05-29] MEDS: risperiDONE 1 MG TABLET PO (20:11)
[2022-05-29] MEDS: Mirtazapine 15 MG TABLET PO (20:12)
[2022-05-29 20:47] LABS: Glucose, Whole Blood 129 mg/dL (60-115)
[2022-05-30 06:00] VITALS: BP 145/65; PULSE 82; RESP 14; TEMP 36.2; O2SAT 95
[2022-05-30 07:58] LABS: Glucose, Whole Blood 49 mg/dL (60-115)
[2022-05-30] MEDS: hydrOXYzine HCL 25 MG TABLET 12.5 MG PO ×3 (08:37→21:13)
[2022-05-30] MEDS: Gabapentin 100 MG CAPSULE 200 MG PO ×3 (08:37→21:12)
[2022-05-30] MEDS: metFORMIN HCl ER 500 MG TAB.ER.24H PO (08:37)
[2022-05-30] MEDS: Ezetimibe 10 MG TABLET PO (08:37)
[2022-05-30] MEDS: Clopidogrel Bisulfate 75 MG TABLET PO (08:37)
[2022-05-30] MEDS: Famotidine 20 MG TABLET PO (08:37)
[2022-05-30] MEDS: LORazepam 0.5 MG TABLET 0.25 MG PO ×3 (08:39→21:18)
[2022-05-30] MEDS: Sertraline HCL 50 MG TABLET 150 MG PO (08:39)
[2022-05-30] MEDS: Atorvastatin Calcium 40 MG TABLET PO (08:40)
[2022-05-30] MEDS: traMADoL HCL 50 MG TABLET PO ×2 (08:40→21:20)
[2022-05-30] MEDS: Loratadine 10 MG TABLET PO (08:40)
[2022-05-30] MEDS: levETIRAcetam 500 MG TABLET PO ×2 (08:40→21:18)
[2022-05-30] MEDS: risperiDONE 0.5 MG TABLET PO ×2 (08:42→16:08)
[2022-05-30] MEDS: amLODIPine Besylate 10 MG TABLET PO (08:42)
[2022-05-30] MEDS: Insulin Glargine,Hum.rec.anlog 100 UNIT/ML 10 ML VIAL 47 UNIT SUBCUT (08:48)
[2022-05-30 11:26] LABS: Glucose, Whole Blood 346 mg/dL (60-115)
[2022-05-30] MEDS: Insulin Lispro 100 UNIT/ML 3 ML VIAL SUBCUT (11:30)
--- NOTE | 2022-05-30 13:05 | HO.PSYCHPN ---
Subjective Subjective Date of Service: 05/30/22 Reason For Visit: Tactile hallucinations Subjective Notes: Conditional Voluntary Interim History: The nursing staff reported the patient has verbalized passive suicidal ideation and exacerbation of depression. Yesterday we discussed with the patient her symptoms and she reported anxiety so we added a low dose of Ativan. So far no over-sedation. On interview she remains dysphoric, less irritable with increase of gabapentin. We will increase her mirtazapine to target insomnia and depression. Mental Status Exam Mental Status Exam Patient Appearance: Well Grooomed Patient Orientation: Person and Situation Level of Consciousness: Awake Mood Description: Withdrawn Affect Description: Constricted and Depressed Patient Cognition Impaired: Yes Ability to Follow Directions: Good Speech Pattern: Clear Hallucinations: None Delusions: Not Present Thought Process: Distracted and Evasive Thought Content: positive for [place] and positive for Circumstantial Judgement: Fair Diagnostics Vital Signs (24Hr): Vital Signs - 24 hr 05/29/22 18:00 Temperature 98 F Pulse Rate 72 Respiratory Rate 20 Blood Pressure 124/60 Pulse Oximetry 95 Oxygen Delivery Method Nasal Cannula Oxygen Flow Rate 2 BMI result Body Mass Index 27.3 Labs Results: 05/13/22 14:38 05/24/22 09:56 Labs: Laboratory Results - last 48 hr 05/28/22 05/28/22 05/29/22 16:55 21:42 07:32 POC Glucose 114 76 49 L* 05/29/22 05/29/22 05/29/22 11:12 16:45 17:29 POC Glucose 322 H 49 L* 81 05/29/22 05/29/22 05/30/22 17:58 20:09 07:51 POC Glucose 101 129 H 49 L* 05/30/22 11:22 POC Glucose 346 H Imaging Radiology Impressions: ITS Impressions Chest X-Ray 05/13/22 14:29 IMPRESSION: No acute intrathoracic disease. Head CT 05/13/22 14:30 IMPRESSION: No acute intracranial pathology. Hand/Wrist X-Ray 05/17/22 14:32 IMPRESSION: -No visible fracture or dislocation or destructive process. -Generalized osteopenia. Medications Medications Current Medications Acetaminophen (Acetaminophen 325 Mg Tablet) 975 mg PO Q6H PRN PRN Reason: mild pain, Last Admin: 05/27/22 13:03 Dose: 975 mg Al Hydroxide/Mg Hydroxide (Magnesium Hydrox/Alum Hydrox 30 Ml Oral.Susp) 30 ml PO Q6H PRN PRN Reason: Heartburn/Nausea Amlodipine Besylate (Amlodipine Besylate 10 Mg Tablet) 10 mg PO DAILY [facility]; Protocol Last Admin: 05/30/22 08:42 Dose: 10 mg Atorvastatin Calcium (Atorvastatin Calcium 40 Mg Tablet) 40 mg PO DAILY [facility] Last Admin: 05/30/22 08:40 Dose: 40 mg Clopidogrel Bisulfate (Clopidogrel Bisulfate 75 Mg Tablet) 75 mg PO DAILY [facility] Last Admin: 05/30/22 08:37 Dose: 75 mg Dextrose (Dextrose 50 % 25 Gm/50 Ml Syringe) 25 gm IVPUSH Q15M PRN; Protocol PRN Reason: per Hypoglycemia Standing Ord. Ezetimibe (Ezetimibe 10 Mg Tablet) 10 mg PO DAILY [facility] Last Admin: 05/30/22 08:37 Dose: 10 mg Famotidine (Famotidine 20 Mg Tablet) 20 mg PO DAILY [facility] Last Admin: 05/30/22 08:37 Dose: 20 mg Gabapentin (Gabapentin 100 Mg Capsule) 200 mg PO TID [facility] Last Admin: 05/30/22 08:37 Dose: 200 mg Glucose (Glucose Gel 15 Gm Gel..Gram.) 15 gm PO Q15M PRN; Protocol PRN Reason: per Hypoglycemia Standing Ord. Hydroxyzine HCl (Hydroxyzine Hcl 25 Mg Tablet) 12.5 mg PO TID [facility] Last Admin: 05/30/22 08:37 Dose: 12.5 mg Ibuprofen (Ibuprofen 400 Mg Tablet) 400 mg PO Q6H PRN PRN Reason: headache Last Admin: 05/22/22 20:00 Dose: 400 mg Insulin Glargine (Insulin Glargine,Hum.Rec.Anlog 100 Unit/Ml 10 Ml Vial) 47 unit SUBCUT DAILY [facility] Last Admin: 05/30/22 08:48 Dose: 47 unit Insulin Human Lispro (Insulin Lispro 100 Unit/Ml 3 Ml Vial) 0 unit SUBCUT QIDACHS [facility]; Protocol Stop: 06/09/22 11:29 Last Admin: 05/30/22 08:43 Dose: Not Given Levetiracetam (Levetiracetam 500 Mg Tablet) 500 mg PO BID [facility] Last Admin: 05/30/22 08:40 Dose: 500 mg Loratadine (Loratadine 10 Mg Tablet) 10 mg PO DAILY [facility] Last Admin: 05/30/22 08:40 Dose: 10 mg Lorazepam (Lorazepam 0.5 Mg Tablet) 0.25 mg PO TID [facility] Last Admin: 05/30/22 08:39 Dose: 0.25 mg Magnesium Hydroxide (Milk Of Magnesia 30 Ml Oral.Susp) 30 ml PO DAILY PRN PRN Reason: Constipation Metformin HCl (Metformin Hcl Er 500 Mg Tab.Er.24h) 500 mg PO DAILY@0800 [facility] Last Admin: 05/30/22 08:37 Dose: 500 mg Mirtazapine (Mirtazapine 15 Mg Tablet) 15 mg PO BEDTIME [facility] Last Admin: 05/29/22 20:12 Dose: 15 mg Risperidone (Risperidone 0.5 Mg Tablet) 0.5 mg PO BID@0800,1500 [facility] Last Admin: 05/30/22 08:42 Dose: 0.5 mg Risperidone (Risperidone 1 Mg Tablet) 1 mg PO BEDTIME [facility] Last Admin: 05/29/22 20:11 Dose: 1 mg Sertraline HCl (Sertraline Hcl 50 Mg Tablet) 150 mg PO DAILY [facility] Last Admin: 05/30/22 08:39 Dose: 150 mg Tramadol HCl (Tramadol Hcl 50 Mg Tablet) 50 mg PO BID [facility] Last Admin: 05/30/22 08:40 Dose: 50 mg Trazodone HCl (Trazodone Hcl 50 Mg Tablet) 50 mg PO BEDTIME PRN PRN Reason: Insomnia Last Admin: 05/19/22 20:51 Dose: 50 mg Allergies Allergies Allergy/AdvReac Type Severity Reaction Status Date / Time Sulfa (Sulfonamide Allergy Hives Verified 05/13/22 11:29 Antibiotics) codeine AdvReac Gastrointestinal Verified 05/13/22 11:29 Upset Assessment & Plan Assessment & Plan (1) Cognitive impairment: Status: Acute Code(s): R41.89 - Other symptoms and signs involving cognitive functions and awareness (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 Plan 1. Gather collateral information. 2. Continue antidepressants. Increase Zoloft up to 150 mg po daily on 05/27 3. Continue antibiotics. 4. Continue antipsychotics 5. Gabapentin was increased up to 200 mg p.o. t.i.d. to target mood lability. 6. Increase Remeron up to 30 mg p.o. q.h.s. on 05/30/22 I spent __20____ minutes with the patient and/or on the patient floor today, greater than?50% of which was spent counseling/coordinating care. Reason for contiued inpatient stay Substantial Risk for: inability to function, rapid decompensation and med/psych decompensation
[2022-05-30 16:28] LABS: Glucose, Whole Blood 63 mg/dL (60-115)
[2022-05-30 18:00] VITALS: BP 130/63; PULSE 76; RESP 17; TEMP 36.5; O2SAT 93
[2022-05-30] MEDS: risperiDONE 1 MG TABLET PO (21:20)
[2022-05-30] MEDS: Mirtazapine 30 MG TABLET PO (21:20)
[2022-05-30 21:42] LABS: Glucose, Whole Blood 71 mg/dL (60-115)
[2022-05-30] MEDS: Acetaminophen 325 MG TABLET 975 MG PO (23:32)
[2022-05-31 06:00] VITALS: BP 157/68; PULSE 69; RESP 14; TEMP 36.2; O2SAT 94
[2022-05-31 07:54] LABS: Glucose, Whole Blood 87 mg/dL (60-115)
[2022-05-31 08:40] LABS: Creatinine Clr Calc Pharmacy 29.7; Estimated Glomerular Filt Rate 49
[2022-05-31] MEDS: Insulin Glargine,Hum.rec.anlog 100 UNIT/ML 10 ML VIAL 47 UNIT SUBCUT (09:17)
[2022-05-31] MEDS: LORazepam 0.5 MG TABLET 0.25 MG PO ×3 (09:18→20:43)
[2022-05-31] MEDS: levETIRAcetam 500 MG TABLET PO ×2 (09:18→20:44)
[2022-05-31] MEDS: Famotidine 20 MG TABLET PO (09:18)
[2022-05-31] MEDS: traMADoL HCL 50 MG TABLET PO ×2 (09:19→20:44)
[2022-05-31] MEDS: hydrOXYzine HCL 25 MG TABLET 12.5 MG PO ×3 (09:19→20:41)
[2022-05-31] MEDS: Loratadine 10 MG TABLET PO (09:19)
[2022-05-31] MEDS: Sertraline HCL 50 MG TABLET 150 MG PO (09:19)
[2022-05-31] MEDS: metFORMIN HCl ER 500 MG TAB.ER.24H PO (09:19)
[2022-05-31] MEDS: risperiDONE 0.5 MG TABLET PO ×2 (09:19→16:01)
[2022-05-31] MEDS: Atorvastatin Calcium 40 MG TABLET PO (09:19)
[2022-05-31] MEDS: Gabapentin 100 MG CAPSULE 200 MG PO ×3 (09:20→20:40)
[2022-05-31] MEDS: Clopidogrel Bisulfate 75 MG TABLET PO (09:20)
[2022-05-31] MEDS: Ezetimibe 10 MG TABLET PO (09:20)
[2022-05-31] MEDS: amLODIPine Besylate 10 MG TABLET PO (09:20)
--- NOTE | 2022-05-31 11:42 | P.PNPSI_ITS ---
Subjective Subjective Date of Service: 05/31/22 Reason For Visit: Tactile hallucinations Subjective Notes: Conditional Voluntary Interim History: The nursing staff reported the patient showed flat affect not interacting with peers. She went to rehab to the floor and she work with the staff on her issues. On interview the patient denies new symptoms she reports depression. At this moment with crank up Zoloft up to 150 mg daily and Remeron was increased up to 30 mg yesterday Mental Status Exam Mental Status Exam Patient Appearance: Well Grooomed Patient Orientation: Person and Situation Level of Consciousness: Awake Patient Behavior: Guarded Mood Description: Withdrawn Affect Description: Constricted Patient Cognition Impaired: Yes Ability to Follow Directions: Good Speech Pattern: Clear Hallucinations: None Delusions: Paranoid Ideation Thought Process: Distracted and Linear Thought Content: positive for Circumstantial Judgement: Fair Diagnostics Vital Signs (24Hr): Vital Signs - 24 hr 05/30/22 18:00 05/31/22 06:00 Temperature 97.7 F 97.2 F Pulse Rate 76 69 Respiratory Rate 17 14 Blood Pressure 130/63 157/68 H Pulse Oximetry 93 94 Oxygen Delivery Method Room Air Room Air BMI result Body Mass Index 27.3 Labs Results: 05/13/22 14:38 05/31/22 07:56 Labs: Laboratory Results - last 48 hr 05/29/22 05/29/22 05/29/22 16:45 17:29 17:58 Creatinine Estim Creat Clear Calc Estimated GFR POC Glucose 49 L* 81 101 05/29/22 05/30/22 05/30/22 20:09 07:51 11:22 Creatinine Estim Creat Clear Calc Estimated GFR POC Glucose 129 H 49 L* 346 H 05/30/22 05/30/22 05/31/22 16:24 21:10 07:48 Creatinine Estim Creat Clear Calc Estimated GFR POC Glucose 63 71 87 05/31/22 07:56 Creatinine 1.08 Estim Creat Clear Calc 29.7 Estimated GFR 49 POC Glucose Imaging Radiology Impressions: ITS Impressions Chest X-Ray 05/13/22 14:29 IMPRESSION: No acute intrathoracic disease. Head CT 05/13/22 14:30 IMPRESSION: No acute intracranial pathology. Hand/Wrist X-Ray 05/17/22 14:32 IMPRESSION: -No visible fracture or dislocation or destructive process. -Generalized osteopenia. Medications Medications Current Medications Acetaminophen (Acetaminophen 325 Mg Tablet) 975 mg PO Q6H PRN PRN Reason: mild pain, Last Admin: 05/30/22 23:32 Dose: 975 mg Al Hydroxide/Mg Hydroxide (Magnesium Hydrox/Alum Hydrox 30 Ml Oral.Susp) 30 ml PO Q6H PRN PRN Reason: Heartburn/Nausea Amlodipine Besylate (Amlodipine Besylate 10 Mg Tablet) 10 mg PO DAILY [facility]; Protocol Last Admin: 05/31/22 09:20 Dose: 10 mg Atorvastatin Calcium (Atorvastatin Calcium 40 Mg Tablet) 40 mg PO DAILY [facility] Last Admin: 05/31/22 09:19 Dose: 40 mg Clopidogrel Bisulfate (Clopidogrel Bisulfate 75 Mg Tablet) 75 mg PO DAILY [facility] Last Admin: 05/31/22 09:20 Dose: 75 mg Dextrose (Dextrose 50 % 25 Gm/50 Ml Syringe) 25 gm IVPUSH Q15M PRN; Protocol PRN Reason: per Hypoglycemia Standing Ord. Ezetimibe (Ezetimibe 10 Mg Tablet) 10 mg PO DAILY [facility] Last Admin: 05/31/22 09:20 Dose: 10 mg Famotidine (Famotidine 20 Mg Tablet) 20 mg PO DAILY [facility] Last Admin: 05/31/22 09:18 Dose: 20 mg Gabapentin (Gabapentin 100 Mg Capsule) 200 mg PO TID [facility] Last Admin: 05/31/22 09:20 Dose: 200 mg Glucose (Glucose Gel 15 Gm Gel..Gram.) 15 gm PO Q15M PRN; Protocol PRN Reason: per Hypoglycemia Standing Ord. Hydroxyzine HCl (Hydroxyzine Hcl 25 Mg Tablet) 12.5 mg PO TID [facility] Last Admin: 05/31/22 09:19 Dose: 12.5 mg Ibuprofen (Ibuprofen 400 Mg Tablet) 400 mg PO Q6H PRN PRN Reason: headache Last Admin: 05/22/22 20:00 Dose: 400 mg Insulin Glargine (Insulin Glargine,Hum.Rec.Anlog 100 Unit/Ml 10 Ml Vial) 47 unit SUBCUT DAILY [facility] Last Admin: 05/31/22 09:17 Dose: 47 unit Insulin Human Lispro (Insulin Lispro 100 Unit/Ml 3 Ml Vial) 0 unit SUBCUT QIDACHS [facility]PL[facility]; Protocol Stop: 06/09/22 11:29 Last Admin: 05/31/22 09:26 Dose: Not Given Levetiracetam (Levetiracetam 500 Mg Tablet) 500 mg PO BID [facility] Last Admin: 05/31/22 09:18 Dose: 500 mg Loratadine (Loratadine 10 Mg Tablet) 10 mg PO DAILY [facility] Last Admin: 05/31/22 09:19 Dose: 10 mg Lorazepam (Lorazepam 0.5 Mg Tablet) 0.25 mg PO TID [facility] Last Admin: 05/31/22 09:18 Dose: 0.25 mg Magnesium Hydroxide (Milk Of Magnesia 30 Ml Oral.Susp) 30 ml PO DAILY PRN PRN Reason: Constipation Metformin HCl (Metformin Hcl Er 500 Mg Tab.Er.24h) 500 mg PO DAILY@0800 [facility] Last Admin: 05/31/22 09:19 Dose: 500 mg Mirtazapine (Mirtazapine 30 Mg Tablet) 30 mg PO BEDTIME [facility] Last Admin: 05/30/22 21:20 Dose: 30 mg Risperidone (Risperidone 0.5 Mg Tablet) 0.5 mg PO BID@0800,1500 [facility] Last Admin: 05/31/22 09:19 Dose: 0.5 mg Risperidone (Risperidone 1 Mg Tablet) 1 mg PO BEDTIME [facility] Last Admin: 05/30/22 21:20 Dose: 1 mg Sertraline HCl (Sertraline Hcl 50 Mg Tablet) 150 mg PO DAILY [facility] Last Admin: 05/31/22 09:19 Dose: 150 mg Tramadol HCl (Tramadol Hcl 50 Mg Tablet) 50 mg PO BID [facility] Last Admin: 05/31/22 09:19 Dose: 50 mg Trazodone HCl (Trazodone Hcl 50 Mg Tablet) 50 mg PO BEDTIME PRN PRN Reason: Insomnia Last Admin: 05/19/22 20:51 Dose: 50 mg Allergies Allergies Allergy/AdvReac Type Severity Reaction Status Date / Time Sulfa (Sulfonamide Allergy Hives Verified 05/13/22 11:29 Antibiotics) codeine AdvReac Gastrointestinal Verified 05/13/22 11:29 Upset Assessment & Plan Assessment & Plan (1) Cognitive impairment: Status: Acute Code(s): R41.89 - Other symptoms and signs involving cognitive functions and awareness (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 Plan 1. Gather collateral information. 2. Continue antidepressants. Increase Zoloft up to 150 mg po daily on 05/27 3. Continue antibiotics. 4. Continue antipsychotics 5. Gabapentin was increased up to 200 mg p.o. t.i.d. to target mood lability. 6. Increase Remeron up to 30 mg p.o. q.h.s. on 05/30/22 I spent __20____ minutes with the patient and/or on the patient floor today, greater than?50% of which was spent counseling/coordinating care. Reason for contiued inpatient stay Substantial Risk for: inability to function, rapid decompensation and med/psych decompensation
[2022-05-31 16:36] LABS: Glucose, Whole Blood 59 mg/dL (60-115)
[2022-05-31 18:00] VITALS: BP 138/63; PULSE 73; RESP 138; TEMP 37.2; O2SAT 91
[2022-05-31 20:01] LABS: Glucose, Whole Blood 104 mg/dL (60-115)
[2022-05-31] MEDS: Mirtazapine 30 MG TABLET PO (20:45)
[2022-05-31] MEDS: risperiDONE 1 MG TABLET PO (20:45)
[2022-05-31] MEDS: Milk of Magnesia 30 ML ORAL.SUSP PO (20:45)
[2022-06-01 08:00] VITALS: BP 148/64; PULSE 70; RESP 17; TEMP 36.4; O2SAT 93
[2022-06-01 08:04] LABS: Glucose, Whole Blood 84 mg/dL (60-115)
[2022-06-01] MEDS: Gabapentin 100 MG CAPSULE 200 MG PO ×3 (08:06→20:45)
[2022-06-01] MEDS: risperiDONE 0.5 MG TABLET PO ×2 (08:06→15:40)
[2022-06-01] MEDS: Ezetimibe 10 MG TABLET PO (08:07)
[2022-06-01] MEDS: levETIRAcetam 500 MG TABLET PO ×2 (08:07→20:45)
[2022-06-01] MEDS: Sertraline HCL 50 MG TABLET 150 MG PO (08:08)
[2022-06-01] MEDS: Loratadine 10 MG TABLET PO (08:08)
[2022-06-01] MEDS: amLODIPine Besylate 10 MG TABLET PO (08:09)
[2022-06-01] MEDS: hydrOXYzine HCL 25 MG TABLET 12.5 MG PO ×3 (08:09→20:44)
[2022-06-01] MEDS: Famotidine 20 MG TABLET PO (08:11)
[2022-06-01] MEDS: metFORMIN HCl ER 500 MG TAB.ER.24H PO (08:11)
[2022-06-01] MEDS: Clopidogrel Bisulfate 75 MG TABLET PO (08:11)
[2022-06-01] MEDS: traMADoL HCL 50 MG TABLET PO ×2 (08:12→20:45)
[2022-06-01] MEDS: LORazepam 0.5 MG TABLET 0.25 MG PO ×3 (08:12→20:43)
[2022-06-01] MEDS: Insulin Glargine,Hum.rec.anlog 100 UNIT/ML 10 ML VIAL 47 UNIT SUBCUT (08:14)
[2022-06-01] MEDS: Insulin Lispro 100 UNIT/ML 3 ML VIAL SUBCUT (08:45)
--- NOTE | 2022-06-01 09:06 | P.PNPSI_ITS ---
Subjective Subjective Date of Service: 06/01/22 Reason For Visit: Tactile hallucinations Subjective Notes: Downing Warning Interim History: I spoke with pt's team, will sign MOLST form as this needed to be updated. Pt asking for something for constipation, will start miralax. I spoke with pt, says she is feeling good, however says she slept all afternoon, i dont know if its cause im taking that medication. She does not like that she slept in. Otherwise, says her medications have helped with depression and anxiety. Feels safe here. No med adjustments made, will monitor to see if sedation improves. Medication Compliance: Yes Side effects from medications: Yes Attending Groups: Yes Review of Systems Acute medical concerns: No Medical Review of Systems: unchanged Mental Status Exam Mental Status Exam Narrative: Patient Appearance: Well Grooomed Patient Orientation: Person and Situation Level of Consciousness: Awake Patient Behavior: Guarded Mood Description: Withdrawn Affect Description: Constricted Patient Cognition Impaired: Yes Ability to Follow Directions: Good Speech Pattern: Clear Hallucinations: None Delusions: Paranoid Ideation Thought Process: Distracted and Linear Thought Content: positive for Circumstantial Judgement: Fair Diagnostics Vital Signs (24Hr): Vital Signs - 24 hr 05/31/22 18:00 Temperature 99 F Pulse Rate 73 Respiratory Rate 138 H Blood Pressure 138/63 Pulse Oximetry 91 L Oxygen Delivery Method Room Air BMI result Body Mass Index 27.3 Labs Results: 05/13/22 14:38 05/31/22 07:56 Labs: Laboratory Results - last 48 hr 05/30/22 05/30/22 05/30/22 11:22 16:24 21:10 Creatinine Estim Creat Clear Calc Estimated GFR POC Glucose 346 H 63 71 05/31/22 05/31/22 05/31/22 07:48 07:56 16:22 Creatinine 1.08 Estim Creat Clear Calc 29.7 Estimated GFR 49 POC Glucose 87 59 L* 05/31/22 06/01/22 19:52 07:48 Creatinine Estim Creat Clear Calc Estimated GFR POC Glucose 104 84 Imaging Radiology Impressions: ITS Impressions Chest X-Ray 05/13/22 14:29 IMPRESSION: No acute intrathoracic disease. Head CT 05/13/22 14:30 IMPRESSION: No acute intracranial pathology. Hand/Wrist X-Ray 05/17/22 14:32 IMPRESSION: -No visible fracture or dislocation or destructive process. -Generalized osteopenia. Medications Medications Current Medications Acetaminophen (Acetaminophen 325 Mg Tablet) 975 mg PO Q6H PRN PRN Reason: mild pain, Last Admin: 05/30/22 23:32 Dose: 975 mg Al Hydroxide/Mg Hydroxide (Magnesium Hydrox/Alum Hydrox 30 Ml Oral.Susp) 30 ml PO Q6H PRN PRN Reason: Heartburn/Nausea Amlodipine Besylate (Amlodipine Besylate 10 Mg Tablet) 10 mg PO DAILY [facility]; Protocol Last Admin: 06/01/22 08:09 Dose: 10 mg Atorvastatin Calcium (Atorvastatin Calcium 40 Mg Tablet) 40 mg PO DAILY [facility] Last Admin: 05/31/22 09:19 Dose: 40 mg Clopidogrel Bisulfate (Clopidogrel Bisulfate 75 Mg Tablet) 75 mg PO DAILY [facility] Last Admin: 06/01/22 08:11 Dose: 75 mg Dextrose (Dextrose 50 % 25 Gm/50 Ml Syringe) 25 gm IVPUSH Q15M PRN; Protocol PRN Reason: per Hypoglycemia Standing Ord. Ezetimibe (Ezetimibe 10 Mg Tablet) 10 mg PO DAILY [facility] Last Admin: 06/01/22 08:07 Dose: 10 mg Famotidine (Famotidine 20 Mg Tablet) 20 mg PO DAILY [facility] Last Admin: 06/01/22 08:11 Dose: 20 mg Gabapentin (Gabapentin 100 Mg Capsule) 200 mg PO TID [facility] Last Admin: 06/01/22 08:06 Dose: 200 mg Glucose (Glucose Gel 15 Gm Gel..Gram.) 15 gm PO Q15M PRN; Protocol PRN Reason: per Hypoglycemia Standing Ord. Hydroxyzine HCl (Hydroxyzine Hcl 25 Mg Tablet) 12.5 mg PO TID [facility] Last Admin: 06/01/22 08:09 Dose: 12.5 mg Ibuprofen (Ibuprofen 400 Mg Tablet) 400 mg PO Q6H PRN PRN Reason: headache Last Admin: 05/22/22 20:00 Dose: 400 mg Insulin Glargine (Insulin Glargine,Hum.Rec.Anlog 100 Unit/Ml 10 Ml Vial) 47 unit SUBCUT DAILY [facility] Last Admin: 06/01/22 08:14 Dose: 47 unit Insulin Human Lispro (Insulin Lispro 100 Unit/Ml 3 Ml Vial) 0 unit SUBCUT QIDACHS [facility]; Protocol Stop: 06/09/22 11:29 Last Admin: 06/01/22 08:05 Dose: Not Given Levetiracetam (Levetiracetam 500 Mg Tablet) 500 mg PO BID [facility] Last Admin: 06/01/22 08:07 Dose: 500 mg Loratadine (Loratadine 10 Mg Tablet) 10 mg PO DAILY [facility] Last Admin: 06/01/22 08:08 Dose: 10 mg Lorazepam (Lorazepam 0.5 Mg Tablet) 0.25 mg PO TID [facility] Last Admin: 06/01/22 08:12 Dose: 0.25 mg Magnesium Hydroxide (Milk Of Magnesia 30 Ml Oral.Susp) 30 ml PO DAILY PRN PRN Reason: Constipation Last Admin: 05/31/22 20:45 Dose: 30 ml Metformin HCl (Metformin Hcl Er 500 Mg Tab.Er.24h) 500 mg PO DAILY@0800 [facility] Last Admin: 06/01/22 08:11 Dose: 500 mg Mirtazapine (Mirtazapine 30 Mg Tablet) 30 mg PO BEDTIME [facility] Last Admin: 05/31/22 20:45 Dose: 30 mg Risperidone (Risperidone 0.5 Mg Tablet) 0.5 mg PO BID@0800,1500 [facility] Last Admin: 06/01/22 08:06 Dose: 0.5 mg Risperidone (Risperidone 1 Mg Tablet) 1 mg PO BEDTIME [facility] Last Admin: 05/31/22 20:45 Dose: 1 mg Sertraline HCl (Sertraline Hcl 50 Mg Tablet) 150 mg PO DAILY [facility] Last Admin: 06/01/22 08:08 Dose: 150 mg Tramadol HCl (Tramadol Hcl 50 Mg Tablet) 50 mg PO BID [facility] Last Admin: 06/01/22 08:12 Dose: 50 mg Trazodone HCl (Trazodone Hcl 50 Mg Tablet) 50 mg PO BEDTIME PRN PRN Reason: Insomnia Last Admin: 05/19/22 20:51 Dose: 50 mg Allergies Allergies Allergy/AdvReac Type Severity Reaction Status Date / Time Sulfa (Sulfonamide Allergy Hives Verified 05/13/22 11:29 Antibiotics) codeine AdvReac Gastrointestinal Verified 05/13/22 11:29 Upset Assessment & Plan Assessment & Plan (1) Cognitive impairment: Status: Acute Code(s): R41.89 - Other symptoms and signs involving cognitive functions and awareness (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 Plan 1. Gather collateral information. 2. Continue antidepressants. Increase Zoloft up to 150 mg po daily on 05/27 3. Continue antibiotics. 4. Continue antipsychotics 5. Gabapentin was increased up to 200 mg p.o. t.i.d. to target mood lability. 6. Increase Remeron up to 30 mg p.o. q.h.s. on 05/30/22 I spent minutes with the patient and/or on the patient floor today, greater than?50% of which was spent counseling/coordinating care. Patient educated on: other Reason for contiued inpatient stay Substantial Risk for: rapid decompensation and med/psych decompensation
[2022-06-01] MEDS: Atorvastatin Calcium 40 MG TABLET PO (09:08)
[2022-06-01 16:14] LABS: Glucose, Whole Blood 69 mg/dL (60-115)
[2022-06-01 18:00] VITALS: BP 123/62; PULSE 71; RESP 20; TEMP 36.8; O2SAT 90
[2022-06-01 20:30] LABS: Glucose, Whole Blood 145 mg/dL (60-115)
[2022-06-01] MEDS: polyethylene glycoL 3350 17 GM POWD.PACK PO (20:42)
[2022-06-01] MEDS: Mirtazapine 30 MG TABLET PO (20:46)
[2022-06-01] MEDS: risperiDONE 1 MG TABLET PO (20:46)
[2022-06-02 07:44] LABS: Glucose, Whole Blood 82 mg/dL (60-115)
[2022-06-02 07:45] VITALS: BP 166/70; PULSE 75; RESP 16; TEMP 36; O2SAT 92
[2022-06-02] MEDS: risperiDONE 0.5 MG TABLET PO ×2 (07:56→15:15)
[2022-06-02] MEDS: Loratadine 10 MG TABLET PO (07:56)
[2022-06-02] MEDS: metFORMIN HCl ER 500 MG TAB.ER.24H PO (07:56)
[2022-06-02] MEDS: Gabapentin 100 MG CAPSULE 200 MG PO ×3 (07:57→20:34)
[2022-06-02] MEDS: levETIRAcetam 500 MG TABLET PO ×2 (07:57→20:31)
[2022-06-02] MEDS: Famotidine 20 MG TABLET PO (07:57)
[2022-06-02] MEDS: Ezetimibe 10 MG TABLET PO (07:57)
[2022-06-02] MEDS: hydrOXYzine HCL 25 MG TABLET 12.5 MG PO ×3 (07:58→20:32)
[2022-06-02] MEDS: amLODIPine Besylate 10 MG TABLET PO (07:59)
[2022-06-02] MEDS: Clopidogrel Bisulfate 75 MG TABLET PO (07:59)
[2022-06-02] MEDS: Sertraline HCL 50 MG TABLET 150 MG PO (08:00)
[2022-06-02] MEDS: LORazepam 0.5 MG TABLET 0.25 MG PO ×3 (08:01→20:33)
[2022-06-02] MEDS: traMADoL HCL 50 MG TABLET PO ×2 (08:01→20:31)
[2022-06-02] MEDS: Atorvastatin Calcium 40 MG TABLET PO (08:02)
[2022-06-02] MEDS: polyethylene glycoL 3350 17 GM POWD.PACK PO ×2 (08:03→20:37)
[2022-06-02] MEDS: Insulin Glargine,Hum.rec.anlog 100 UNIT/ML 10 ML VIAL 47 UNIT SUBCUT (08:43)
[2022-06-02 11:23] LABS: Glucose, Whole Blood 230 mg/dL (60-115)
[2022-06-02] MEDS: Insulin Lispro 100 UNIT/ML 3 ML VIAL SUBCUT ×2 (11:24→20:34)
[2022-06-02 16:44] LABS: Glucose, Whole Blood 78 mg/dL (60-115)
--- NOTE | 2022-06-02 16:44 | HO.PSYCHPN ---
Subjective Subjective Date of Service: 06/01/22 Reason For Visit: Tactile hallucinations Subjective Notes: Downing Warning Interim History: I spoke with pt's team. She has been med adherent. I spoke with pt, she says she still feels too tired in the morning. Will decrease remeron back to 15 mg to see if this helps. Says her anxiety is manageable here but worries about it returning at home. Denies depression. Still thinks about her dad, says she has trouble reconciling past trauma. Another stressor is that her daughter is an alcoholic, worries about her because her father from alcohol abuse. Says she is a nervous person, has crying episodes. Medication Compliance: Yes Attending Groups: Yes Review of Systems Acute medical concerns: No Medical Review of Systems: unchanged Mental Status Exam Mental Status Exam Narrative: Patient Appearance: Well Grooomed Patient Orientation: Person and Situation Level of Consciousness: Awake Patient Behavior: Guarded Mood Description: Withdrawn Affect Description: Constricted Patient Cognition Impaired: Yes Ability to Follow Directions: Good Speech Pattern: Clear Hallucinations: None Delusions: Paranoid Ideation Thought Process: Distracted and Linear Thought Content: positive for Circumstantial Judgement: Fair Diagnostics Vital Signs (24Hr): Vital Signs - 24 hr 06/01/22 18:00 06/02/22 07:45 Temperature 98.2 F 96.8 F Pulse Rate 71 75 Respiratory Rate 20 16 Blood Pressure 123/62 166/70 H Pulse Oximetry 90 L 92 Oxygen Delivery Method Room Air Room Air BMI result Body Mass Index 27.3 Labs Results: 05/13/22 14:38 05/31/22 07:56 Labs: Laboratory Results - last 48 hr 05/31/22 06/01/22 06/01/22 19:52 07:48 16:09 POC Glucose 104 84 69 06/01/22 06/02/22 06/02/22 20:24 07:35 11:16 POC Glucose 145 H 82 230 H Imaging Radiology Impressions: ITS Impressions Chest X-Ray 05/13/22 14:29 IMPRESSION: No acute intrathoracic disease. Head CT 05/13/22 14:30 IMPRESSION: No acute intracranial pathology. Hand/Wrist X-Ray 05/17/22 14:32 IMPRESSION: -No visible fracture or dislocation or destructive process. -Generalized osteopenia. Medications Medications Current Medications Acetaminophen (Acetaminophen 325 Mg Tablet) 975 mg PO Q6H PRN PRN Reason: mild pain, Last Admin: 05/30/22 23:32 Dose: 975 mg Al Hydroxide/Mg Hydroxide (Magnesium Hydrox/Alum Hydrox 30 Ml Oral.Susp) 30 ml PO Q6H PRN PRN Reason: Heartburn/Nausea Amlodipine Besylate (Amlodipine Besylate 10 Mg Tablet) 10 mg PO DAILY [facility]; Protocol Last Admin: 06/02/22 07:59 Dose: 10 mg Atorvastatin Calcium (Atorvastatin Calcium 40 Mg Tablet) 40 mg PO DAILY [facility] Last Admin: 06/02/22 08:02 Dose: 40 mg Clopidogrel Bisulfate (Clopidogrel Bisulfate 75 Mg Tablet) 75 mg PO DAILY [facility] Last Admin: 06/02/22 07:59 Dose: 75 mg Dextrose (Dextrose 50 % 25 Gm/50 Ml Syringe) 25 gm IVPUSH Q15M PRN; Protocol PRN Reason: per Hypoglycemia Standing Ord. Ezetimibe (Ezetimibe 10 Mg Tablet) 10 mg PO DAILY [facility] Last Admin: 06/02/22 07:57 Dose: 10 mg Famotidine (Famotidine 20 Mg Tablet) 20 mg PO DAILY [facility] Last Admin: 06/02/22 07:57 Dose: 20 mg Gabapentin (Gabapentin 100 Mg Capsule) 200 mg PO TID [facility] Last Admin: 06/02/22 15:16 Dose: 200 mg Glucose (Glucose Gel 15 Gm Gel..Gram.) 15 gm PO Q15M PRN; Protocol PRN Reason: per Hypoglycemia Standing Ord. Hydroxyzine HCl (Hydroxyzine Hcl 25 Mg Tablet) 12.5 mg PO TID [facility] Last Admin: 06/02/22 15:15 Dose: 12.5 mg Ibuprofen (Ibuprofen 400 Mg Tablet) 400 mg PO Q6H PRN PRN Reason: headache Last Admin: 05/22/22 20:00 Dose: 400 mg Insulin Glargine (Insulin Glargine,Hum.Rec.Anlog 100 Unit/Ml 10 Ml Vial) 47 unit SUBCUT DAILY [facility] Last Admin: 06/02/22 08:43 Dose: 47 unit Insulin Human Lispro (Insulin Lispro 100 Unit/Ml 3 Ml Vial) 0 unit SUBCUT QIDACHS [facility]; Protocol Stop: 06/09/22 11:29 Last Admin: 06/02/22 11:24 Dose: 6 unit Levetiracetam (Levetiracetam 500 Mg Tablet) 500 mg PO BID [facility] Last Admin: 06/02/22 07:57 Dose: 500 mg Loratadine (Loratadine 10 Mg Tablet) 10 mg PO DAILY [facility] Last Admin: 06/02/22 07:56 Dose: 10 mg Lorazepam (Lorazepam 0.5 Mg Tablet) 0.25 mg PO TID [facility] Last Admin: 06/02/22 15:16 Dose: 0.25 mg Magnesium Hydroxide (Milk Of Magnesia 30 Ml Oral.Susp) 30 ml PO DAILY PRN PRN Reason: Constipation Last Admin: 05/31/22 20:45 Dose: 30 ml Metformin HCl (Metformin Hcl Er 500 Mg Tab.Er.24h) 500 mg PO DAILY@0800 [facility] Last Admin: 06/02/22 07:56 Dose: 500 mg Mirtazapine (Mirtazapine 30 Mg Tablet) 30 mg PO BEDTIME [facility] Last Admin: 06/01/22 20:46 Dose: 30 mg Polyethylene Glycol (Polyethylene Glycol 3350 17 Gm Powd.Pack) 17 gm PO BID [facility] Last Admin: 06/02/22 08:03 Dose: 17 gm Risperidone (Risperidone 0.5 Mg Tablet) 0.5 mg PO BID@0800,1500 [facility] Last Admin: 06/02/22 15:15 Dose: 0.5 mg Risperidone (Risperidone 1 Mg Tablet) 1 mg PO BEDTIME [facility] Last Admin: 06/01/22 20:46 Dose: 1 mg Sertraline HCl (Sertraline Hcl 50 Mg Tablet) 150 mg PO DAILY [facility] Last Admin: 06/02/22 08:00 Dose: 150 mg Tramadol HCl (Tramadol Hcl 50 Mg Tablet) 50 mg PO BID [facility] Last Admin: 06/02/22 08:01 Dose: 50 mg Trazodone HCl (Trazodone Hcl 50 Mg Tablet) 50 mg PO BEDTIME PRN PRN Reason: Insomnia Last Admin: 05/19/22 20:51 Dose: 50 mg Allergies Allergies Allergy/AdvReac Type Severity Reaction Status Date / Time Sulfa (Sulfonamide Allergy Hives Verified 05/13/22 11:29 Antibiotics) codeine AdvReac Gastrointestinal Verified 05/13/22 11:29 Upset Assessment & Plan Assessment & Plan (1) Cognitive impairment: Status: Acute Code(s): R41.89 - Other symptoms and signs involving cognitive functions and awareness (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 Plan 1. Gather collateral information. 2. Continue antidepressants. Increase Zoloft up to 150 mg po daily on 05/27 3. Continue antibiotics. 4. Continue antipsychotics 5. Gabapentin was increased up to 200 mg p.o. t.i.d. to target mood lability. 6. Increase Remeron up to 30 mg p.o. q.h.s. on 05/30/22, pt saying she is tired, will lower remeron to 15 mg QHS 06/02/22 to see if this helps. I spent minutes with the patient and/or on the patient floor today, greater than?50% of which was spent counseling/coordinating care. Patient educated on: medication risk/benefits and therapeutic strategies Reason for contiued inpatient stay Substantial Risk for: med/psych decompensation
[2022-06-02 18:00] VITALS: BP 136/63; PULSE 76; RESP 16; TEMP 36.5; O2SAT 91
[2022-06-02] MEDS: risperiDONE 1 MG TABLET PO (20:32)
[2022-06-02] MEDS: Mirtazapine 15 MG TABLET PO (20:34)
[2022-06-02 20:52] LABS: Glucose, Whole Blood 126 mg/dL (60-115)
[2022-06-03 06:00] VITALS: BP 121/60; PULSE 74; RESP 14; TEMP 36.1; O2SAT 95
[2022-06-03 07:57] LABS: Glucose, Whole Blood 62 mg/dL (60-115)
[2022-06-03] MEDS: risperiDONE 0.5 MG TABLET PO (08:05)
[2022-06-03] MEDS: Ezetimibe 10 MG TABLET PO (08:05)
[2022-06-03] MEDS: traMADoL HCL 50 MG TABLET PO (08:05)
[2022-06-03] MEDS: hydrOXYzine HCL 25 MG TABLET 12.5 MG PO (08:05)
[2022-06-03] MEDS: amLODIPine Besylate 10 MG TABLET PO (08:05)
[2022-06-03] MEDS: Clopidogrel Bisulfate 75 MG TABLET PO (08:05)
[2022-06-03] MEDS: Gabapentin 100 MG CAPSULE 200 MG PO (08:06)
[2022-06-03] MEDS: metFORMIN HCl ER 500 MG TAB.ER.24H PO (08:06)
[2022-06-03] MEDS: levETIRAcetam 500 MG TABLET PO (08:07)
[2022-06-03] MEDS: LORazepam 0.5 MG TABLET 0.25 MG PO (08:07)
[2022-06-03] MEDS: Atorvastatin Calcium 40 MG TABLET PO (08:07)
[2022-06-03] MEDS: Loratadine 10 MG TABLET PO (08:09)
[2022-06-03] MEDS: Sertraline HCL 50 MG TABLET 150 MG PO (08:09)
[2022-06-03] MEDS: Famotidine 20 MG TABLET PO (08:11)
--- NOTE | 2022-06-03 08:36 | HO.ADDICT_ITS ---
History of Present Illness Chief Complaint: Tactile hallucinations HPI Past Psychiatric History: Inpatient: none OP: [facility] Counseling- prescriber Luis ([phone] ext: [phone]) Past medication trials: seroquel, sertraline, wellbutrin Diagnostics Vital Signs (24Hr): Vital Signs - 24 hr 06/02/22 18:00 Temperature 97.7 F Pulse Rate 76 Respiratory Rate 16 Blood Pressure 136/63 Pulse Oximetry 91 L Oxygen Delivery Method Room Air BMI result Body Mass Index 27.3 Labs Results: 05/13/22 14:38 05/31/22 07:56 Labs: Laboratory Results - last 48 hr 06/01/22 06/01/22 06/02/22 16:09 20:24 07:35 POC Glucose 69 145 H 82 06/02/22 06/02/22 06/02/22 11:16 16:39 20:21 POC Glucose 230 H 78 126 H 06/03/22 07:53 POC Glucose 62 Imaging Radiology Impressions: ITS Impressions Chest X-Ray 05/13/22 14:29 IMPRESSION: No acute intrathoracic disease. Head CT 05/13/22 14:30 IMPRESSION: No acute intracranial pathology. Hand/Wrist X-Ray 05/17/22 14:32 IMPRESSION: -No visible fracture or dislocation or destructive process. -Generalized osteopenia. Medications Medications Current Medications Acetaminophen (Acetaminophen 325 Mg Tablet) 975 mg PO Q6H PRN PRN Reason: mild pain, Last Admin: 05/30/22 23:32 Dose: 975 mg Al Hydroxide/Mg Hydroxide (Magnesium Hydrox/Alum Hydrox 30 Ml Oral.Susp) 30 ml PO Q6H PRN PRN Reason: Heartburn/Nausea Amlodipine Besylate (Amlodipine Besylate 10 Mg Tablet) 10 mg PO DAILY [facility]; Protocol Last Admin: 06/03/22 08:05 Dose: 10 mg Atorvastatin Calcium (Atorvastatin Calcium 40 Mg Tablet) 40 mg PO DAILY [facility] Last Admin: 06/03/22 08:07 Dose: 40 mg Clopidogrel Bisulfate (Clopidogrel Bisulfate 75 Mg Tablet) 75 mg PO DAILY [facility] Last Admin: 06/03/22 08:05 Dose: 75 mg Dextrose (Dextrose 50 % 25 Gm/50 Ml Syringe) 25 gm IVPUSH Q15M PRN; Protocol PRN Reason: per Hypoglycemia Standing Ord. Ezetimibe (Ezetimibe 10 Mg Tablet) 10 mg PO DAILY [facility] Last Admin: 06/03/22 08:05 Dose: 10 mg Famotidine (Famotidine 20 Mg Tablet) 20 mg PO DAILY [facility] Last Admin: 06/03/22 08:11 Dose: 20 mg Gabapentin (Gabapentin 100 Mg Capsule) 200 mg PO TID [facility] Last Admin: 06/03/22 08:06 Dose: 200 mg Glucose (Glucose Gel 15 Gm Gel..Gram.) 15 gm PO Q15M PRN; Protocol PRN Reason: per Hypoglycemia Standing Ord. Hydroxyzine HCl (Hydroxyzine Hcl 25 Mg Tablet) 12.5 mg PO TID [facility] Last Admin: 06/03/22 08:05 Dose: 12.5 mg Ibuprofen (Ibuprofen 400 Mg Tablet) 400 mg PO Q6H PRN PRN Reason: headache Last Admin: 05/22/22 20:00 Dose: 400 mg Insulin Glargine (Insulin Glargine,Hum.Rec.Anlog 100 Unit/Ml 10 Ml Vial) 47 unit SUBCUT DAILY [facility] Last Admin: 06/02/22 08:43 Dose: 47 unit Insulin Human Lispro (Insulin Lispro 100 Unit/Ml 3 Ml Vial) 0 unit SUBCUT QIDACHS [facility]; Protocol Stop: 06/09/22 11:29 Last Admin: 06/02/22 20:34 Dose: 2 unit Levetiracetam (Levetiracetam 500 Mg Tablet) 500 mg PO BID [facility] Last Admin: 06/03/22 08:07 Dose: 500 mg Loratadine (Loratadine 10 Mg Tablet) 10 mg PO DAILY [facility] Last Admin: 06/03/22 08:09 Dose: 10 mg Lorazepam (Lorazepam 0.5 Mg Tablet) 0.25 mg PO TID [facility] Last Admin: 06/03/22 08:07 Dose: 0.25 mg Magnesium Hydroxide (Milk Of Magnesia 30 Ml Oral.Susp) 30 ml PO DAILY PRN PRN Reason: Constipation Last Admin: 05/31/22 20:45 Dose: 30 ml Metformin HCl (Metformin Hcl Er 500 Mg Tab.Er.24h) 500 mg PO DAILY@0800 [facility] Last Admin: 06/03/22 08:06 Dose: 500 mg Mirtazapine (Mirtazapine 15 Mg Tablet) 15 mg PO BEDTIME [facility] Last Admin: 06/02/22 20:34 Dose: 15 mg Polyethylene Glycol (Polyethylene Glycol 3350 17 Gm Powd.Pack) 17 gm PO BID [facility] Last Admin: 06/02/22 20:37 Dose: 17 gm Risperidone (Risperidone 0.5 Mg Tablet) 0.5 mg PO BID@0800,1500 [facility] Last Admin: 06/03/22 08:05 Dose: 0.5 mg Risperidone (Risperidone 1 Mg Tablet) 1 mg PO BEDTIME [facility] Last Admin: 06/02/22 20:32 Dose: 1 mg Sertraline HCl (Sertraline Hcl 50 Mg Tablet) 150 mg PO DAILY [facility] Last Admin: 06/03/22 08:09 Dose: 150 mg Tramadol HCl (Tramadol Hcl 50 Mg Tablet) 50 mg PO BID [facility] Last Admin: 06/03/22 08:05 Dose: 50 mg Trazodone HCl (Trazodone Hcl 50 Mg Tablet) 50 mg PO BEDTIME PRN PRN Reason: Insomnia Last Admin: 05/19/22 20:51 Dose: 50 mg Allergies Allergies Allergy/AdvReac Type Severity Reaction Status Date / Time Sulfa (Sulfonamide Allergy Hives Verified 05/13/22 11:29 Antibiotics) codeine AdvReac Gastrointestinal Verified 05/13/22 11:29 Upset Assessment & Plan I spent minutes with the patient and/or on the patient floor today, greater than?50% of which was spent counseling/coordinating care. [facility] Social History Social History Household Members: None Household Members Other:: Daughter lives in downstairs apartment. Housing: Apartment Do you presently have visiting nurse or other home services: Yes (Meals on wheels.) Alcohol intake: never Patient Tobacco Use Status: Former Tobacco user Smoked in Last 30 Days: Yes Patient Interested in Nicotine Replacement: No Use of substances other than those prescribed or required for medical reasons: Yes Substance Use Type: Marijuana Substance Use Frequency: Occasionally Last Used Substance: Weeks (ago) Currently Displaying Signs/Symptoms of Drug Intoxication Withdrawal: No Have you been hit, kicked, punched, or otherwise hurt by someone within the past year? If so, by whom?: No Do you feel safe in your current relationship?: No Current Relationship Are you made to feel afraid or neglected: No Advance Directives: Yes Advance Directives Information Provided: Yes Advance Directives on File: No Do you have thoughts of harming others: None Do you have a plan to hurt others: No Plan Recently lost weight without trying: No Nutrition Risks: No Nutritional Risk Patient : No : No Poor oral hygiene: No service: No Sexual orientation: Straight/Heterosexual
[2022-06-03] MEDS: Insulin Glargine,Hum.rec.anlog 100 UNIT/ML 10 ML VIAL 47 UNIT SUBCUT (09:09)
[2022-06-03 10:01] VITALS: PULSE 76; PULSE 77; O2SAT 91; O2SAT 94
--- NOTE | 2022-06-03 10:17 | PM.PSYDC ---
DS: Providers Provider Date of Service: 06/03/22 Date of admission: 05/15/22 14:11 Date of discharge: 06/03/22 Primary care physician: Christel Larios MD Attending physician on discharge: Andry Floyd DS: Diagnosis Discharge Diagnosis (1) Cognitive impairment: Status: Acute (2) Delusions of parasitosis: Status: Acute (3) Delusions: Status: Acute (4) UTI (urinary tract infection): Status: Acute DS: Medications Discharge Medications Home Medications: Home Medications Medication Instructions Recorded Confirmed amlodipine 10 mg tablet 1 tab PO DAILY 05/13/22 05/13/22 atorvastatin 40 mg tablet 1 tab PO DAILY 05/13/22 05/13/22 bupropion HCl 100 mg tablet,12 hr 1 tab PO QAM 05/13/22 05/13/22 sustained-release clopidogrel 75 mg tablet 1 tab PO DAILY 05/13/22 05/13/22 ezetimibe 10 mg tablet 1 tab PO DAILY 05/13/22 05/13/22 famotidine 20 mg tablet 1 tab PO DAILY 05/13/22 05/13/22 gabapentin 100 mg capsule 1 cap PO TID 05/13/22 05/13/22 insulin glargine 100 unit/mL (3 47 ea subcut DAILY 05/13/22 05/13/22 mL) subcutaneous pen (Lantus Solostar U-100 Insulin) levetiracetam 500 mg tablet 1 tab PO BID 05/13/22 05/13/22 loratadine 10 mg tablet 1 tab PO DAILY 05/13/22 05/13/22 metformin 500 mg tablet,extended 1 tab PO DAILY 05/13/22 05/13/22 release 24 hr mirtazapine 15 mg tablet 1 tab PO BEDTIME 05/13/22 05/13/22 sertraline 100 mg tablet 100 tab PO DAILY 05/13/22 05/13/22 tramadol 50 mg tablet 1 tab PO TID PRN Pain 05/13/22 05/13/22 Mental Status Exam Mental Status Exam Patient Appearance: Well Grooomed and Appropriate Patient Orientation: Person and Situation Level of Consciousness: Awake Patient Behavior: Cooperative Mood Description: Withdrawn Affect Description: Constricted Patient Cognition Impaired: Yes Ability to Follow Directions: Good Speech Pattern: Clear Hallucinations: None Delusions: Paranoid Ideation Thought Process: Distracted and Evasive Thought Content: positive for [place] Judgement: Fair Data Data Completed and Pending Completed studies during hospitalization [Text1]: 05/27/22 05/27/22 05/27/22 10:05 11:37 16:33 Creatinine Estim Creat Clear Calc Estimated GFR POC Glucose 212 H 150 H 121 H 05/27/22 05/28/22 05/28/22 20:47 01:02 01:28 Creatinine Estim Creat Clear Calc Estimated GFR POC Glucose 171 H 54 L* 122 H 05/28/22 05/28/22 05/28/22 07:38 16:55 21:42 Creatinine Estim Creat Clear Calc Estimated GFR POC Glucose 81 114 76 05/29/22 05/29/22 05/29/22 07:32 11:12 16:45 Creatinine Estim Creat Clear Calc Estimated GFR POC Glucose 49 L* 322 H 49 L* 05/29/22 05/29/22 05/29/22 17:29 17:58 20:09 Creatinine Estim Creat Clear Calc Estimated GFR POC Glucose 81 101 129 H 05/30/22 05/30/22 05/30/22 07:51 11:22 16:24 Creatinine Estim Creat Clear Calc Estimated GFR POC Glucose 49 L* 346 H 63 05/30/22 05/31/22 05/31/22 21:10 07:48 07:56 Creatinine 1.08 Estim Creat Clear Calc 29.7 Estimated GFR 49 POC Glucose 71 87 05/31/22 05/31/22 06/01/22 16:22 19:52 07:48 Creatinine Estim Creat Clear Calc Estimated GFR POC Glucose 59 L* 104 84 06/01/22 06/01/22 06/02/22 16:09 20:24 07:35 Creatinine Estim Creat Clear Calc Estimated GFR POC Glucose 69 145 H 82 06/02/22 06/02/22 06/02/22 11:16 16:39 20:21 Creatinine Estim Creat Clear Calc Estimated GFR POC Glucose 230 H 78 126 H 06/03/22 07:53 Creatinine Estim Creat Clear Calc Estimated GFR POC Glucose 62 Imaging Diagnostic Imaging Impressions Chest X-Ray 05/13/22 14:29 IMPRESSION: No acute intrathoracic disease. Head CT 05/13/22 14:30 IMPRESSION: No acute intracranial pathology. Hand/Wrist X-Ray 05/17/22 14:32 IMPRESSION: -No visible fracture or dislocation or destructive process. -Generalized osteopenia. DS: Summary Hospital Course Hospital Course: The patient was admitted into the facility for suicidal ideation in the context of losses and progressive failure to thrive. Please see the HPI of the admission note for further details. On admission we review her list of medications and apparently she has not been treated before as an in-patient only as an outpatient. Initially we did a workout for delirium since the patient has episodes of confusion. Her main concern was pruritus, she stated that she has buttocks eating her leash and she was tired that people will disregard this statement make fun of her. She also has other soft psychotic symptoms. We started on a low dose of Risperdal was titrated slowly. Also we consulted occupational therapy since she had a lesion on her left wrist and there was a possibility that was a fracture but it was not, confirmed by x-rays. She also complained of depressive symptoms due to the lseveral losses such as the of her daughter and other psychosocial stressors. We had a family meeting and during that meeting the patient was verbally abusive towards her daughter who was the primary caregiver. Apparently, she abused of cannabis at home in order to cope with her chronic pain and anxiety. While we were in the unit, we start increasing Ativan to target anxiety with for improvement. We increased antidepressants to target dysphoria and increase her gabapentin up to 200 mg p.o. t.i.d. to target mood lability with for improvement. On interview, the patient reported no evidence of suicidal ideation she was able to contract for safety and her mood symptoms improved. Also her confusion cleared and she denied having more bugs eating her flesh . Time spent discussing smoking cessation with patient: 3 to 10 minutes Status at Discharge Cognitive/behavioral status at discharge: [place] 10/11 Functional status at discharge: independent ambulation Overall status at discharge: patient is back to baseline Time Spent with Patient Time attestation: Total time spent providing and/or coordinating discharge services: Time spent: Less than 30 minutes Discharge Plan Discharge Patient Disposition: Home Health Service Discharge Diagnosis: Delirium induced by UTI. Cognitive impairment Referrals: Medication appointment @ [facility] [Other] - 06/04/22 2:30 pm (Appt scheduled with Anaid Arriola for Saturday, June 04, 2022 @ 2:30 PM via TELEHEALTH.) Dr. Jean Baptiste [facility] [Other] - 10/02/22 11:00 am (Appt scheduled for Sunday, October 02, 2022 @ 11 AM IN OFFICE) KATIA Shira Garcia (nurse wound care) [Other] - 3-5 Days (SW spoke with [facility] apartment Estefany Alvarez @ [phone], services will resume post discharge from hospital. SW left message for [facility] worker Shira informing her of dischrge planned for 06/03/22 @ 11 AM. [facility] is through [facility] [phone].) [facility] [Other] - 1 Week ([facility] Nurse will reach out to schedule visit.) [facility] Outpatient therapist [Other] - 3-5 Days (Outpatient therapists Luis will call you at home and schedule next appointment. Please call and follow up in 3-5 days if you have not received call from him to inquire on status of next appointment.) Christel Darby MD [Primary Care Provider] - 1 Week Discharge Medications: New trazodone 50 mg Tablet 50 mg PO BEDTIME PRN (Reason: Insomnia) 30 Days Qty: 30 0RF tramadol 50 mg Tablet 50 mg PO BID 30 Days Qty: 60 0RF lorazepam 0.5 mg Tablet 0.25 mg PO TID 30 Days Qty: 45 0RF ibuprofen 400 mg Tablet 400 mg PO Q6H PRN (Reason: headache) 30 Days Qty: 60 0RF hydroxyzine HCl 25 mg Tablet 12.5 mg PO TID 30 Days Qty: 45 0RF gabapentin 100 mg Capsule 200 mg PO TID 30 Days Qty: 180 0RF sertraline 50 mg Tablet 150 mg PO DAILY 30 Days Qty: 90 0RF risperidone 1 mg Tablet 1 mg PO BEDTIME 30 Days Qty: 30 0RF risperidone 0.5 mg Tablet 0.5 mg PO BID@0800,1500 30 Days Qty: 60 0RF Continued atorvastatin 40 mg tablet 1 tab PO DAILY 30 Days Qty: 30 0RF levetiracetam 500 mg tablet 1 tab PO BID 30 Days Qty: 60 0RF clopidogrel 75 mg tablet 1 tab PO DAILY 30 Days Qty: 30 0RF famotidine 20 mg tablet 1 tab PO DAILY 30 Days Qty: 30 0RF amlodipine 10 mg tablet 1 tab PO DAILY 30 Days Qty: 30 0RF mirtazapine 15 mg tablet 1 tab PO BEDTIME 30 Days Qty: 30 0RF metformin 500 mg tablet extended release 24 hr 1 tab PO DAILY 30 Days Qty: 30 0RF ezetimibe 10 mg tablet 1 tab PO DAILY 30 Days Qty: 30 0RF insulin glargine [Lantus Solostar U-100 Insulin] 100 unit/mL (3 mL) insulin pen 47 ea subcut DAILY 30 Days Qty: 10 0RF Changed loratadine 10 mg tablet 10 mg PO DAILY 30 Days Qty: 30 0RF Discontinued sertraline 100 mg tablet 100 tab PO DAILY tramadol 50 mg tablet 1 tab PO TID PRN (Reason: Pain) bupropion HCl 100 mg tablet sustained-release 12 hr 1 tab PO QAM gabapentin 100 mg capsule 1 cap PO TID Discharge Orders: Discharge Order (Routine); Ordered 06/03/22 Ordered By: Andry Floyd Diet: Advance to usual diet Activity on Discharge: As tolerated Stand Alone Forms: Patient Portal Discharge page Care Plan Goals: Care plan goals achieved in this admission Health Concerns: Continue treatment with primary care physician Plan of Treatment: Continue treatment as an outpatient Assessment: Elderly female with a long history of depression due to several psychosocial stressors and now with dementia. Currently safe in the facility ready for discharge
--- NOTE | 2022-06-03 11:52 | PC.NURSE ---
Pt. reports she is looking forward to going home. Denies SI, AH, VH, or tactile hallucinations. Mood is euthymic. Discharge instructions discussed with pt. and daughter and both verbalize understanding. Escorted from unit via wheelchair at 1130.
== END 2022-06-03 11:30 | disposition home health service (06) | DRG 885 ==
LOC: HO.ED 05-14 02:22 → HO.PGERI 05-15 14:28
PROVIDERS: Nurse Practitioner Family; Physician Assistant; Physician Assistant Medical; Psychiatry & Neurology Psychiatry; Admitting Provider Psychiatry & Neurology Psychiatry; Emergency Provider Emergency Medicine; PCP Internal Medicine; Visit Provider Psychiatry & Neurology Psychiatry
DX: F22 Delusional disorders (principal); N39.0 Urinary tract infection, site not specified; Z20.822 Contact with and (suspected) exposure to COVID-19; Z88.2 Allergy status to sulfonamides; Z88.5 Allergy status to narcotic agent; Z79.4 Long term (current) use of insulin; Z79.02 Long term (current) use of antithrombotics/antiplatelets; Z79.84 Long term (current) use of oral hypoglycemic drugs; Z79.899 Other long term (current) drug therapy
CPT/HCPCS: 29125; 29131; 36415; 70450; 71046; 73110; 73130; 80048; 80053; 80061; 80143; 80179; 80307; 81001; 82565; 82947; 83036; 83735; 84484; 85025; 87502; 87635; 93005; 97110; 97140; 97161; 97166; 97760; 99285

== ENCOUNTER 2022-07-11 19:33 | Emergency (ER) | payer OTHER, SELFPAY ==
--- NOTE | ~2022-07-11 | CT_ITS ---
EXAMINATION: CT ABDOMEN AND PELVIS WITHOUT CONTRAST CLINICAL INFORMATION: Bilateral lower quadrant pain. COMPARISON: None TECHNIQUE: Multidetector volumetric imaging was performed from the superior aspect of the liver through the pubic symphysis. Sagittal and coronal reformatted images were obtained on the technologist's workstation. This CT examination was performed using dose optimization techniques as appropriate, variously including the following: *Automated exposure control *Adjustment of mA and/or kV according to patient size (this includes techniques or standardized protocols for targeted exams where dose is matched to indication/reason for exam; i.e. extremities or head) *Use of iterative reconstruction technique DLP: 368 mGy-cm FINDINGS: LUNG BASES: Mild increased interstitial lung markings at lung bases. Lobulated 7 mm nodule right middle lobe axial image series 5.There are coronary artery calcifications. LIVER, GALLBLADDER, AND BILIARY TREE: The liver is normal in size, shape, and attenuation. No focal hepatic lesion or biliary ductal dilatation is present. Status post cholecystectomy. PANCREAS: Unremarkable. SPLEEN: Unremarkable. ADRENAL GLANDS: Unremarkable. KIDNEYS AND URETERS: The kidneys are normal in size, shape, and attenuation. No hydronephrosis, hydroureter, or calculi seen. No perinephric stranding. BLADDER: Unremarkable. GASTROINTESTINAL TRACT: No acute abnormality. There is no bowel wall thickening /edema. There is no bowel obstruction. There is a moderate volume of stool in the colon. The appendix is normal . The small bowel loops are unremarkable. The stomach is normal. There is moderate-sized hiatal hernia. ABDOMINAL WALL: No significant hernia is appreciated. LYMPH NODES: Normal. VASCULAR: Vascular calcifications through the abdomen and pelvis. No aneurysm. PELVIC VISCERA: Status post hysterectomy. No pelvic abnormality. OSSEOUS STRUCTURES: Multilevel degenerative spondylosis spine. CT/CT abdomen pelvis wo IV con IMPRESSION: 1. No acute abnormality CT scan abdomen pelvis. 2. 7 mm lung nodule right middle lobe. Recommend CT of chest at 6-12 months and follow-up CAT scan 18-24 months. Fleischner guidelines were followed.
--- NOTE | 2022-07-11 19:41 | ECG_ITS ---
Test Reason : NAUSEA/VOMITING Blood Pressure : / mmHG Vent. Rate : 090 BPM Atrial Rate : 090 BPM P-R Int : 148 ms QRS Dur : 070 ms QT Int : 370 ms P-R-T Axes : 070 052 062 degrees QTc Int : 452 ms Normal sinus rhythm Normal ECG When compared with ECG of 15-MAY-2022 11:33, No significant change was found Referred By: Keiry Michelle Electronically Signed By:SILVIANO FOURNIER
[2022-07-11 19:43] VITALS: BP 157/85; BP 158/96; PULSE 102; PULSE 98; RESP 16; TEMP 36.9; O2SAT 95; O2SAT 98; BMI 25.9
--- NOTE | 2022-07-11 19:52 | ED_ITS ---
HPI - General Adult General Chief complaint: Nausea/Vomiting/Diarrhea Stated complaint: N/V/D, weakness Time Seen by Provider: 07/11/22 19:41 Source: patient and EMS Mode of arrival: EMS Limitations: no limitations History of Present Illness HPI narrative: patient comes to the emergency room via EMS from home. Patient states that for the last couple of days she has had diarrhea and has been feeling very nauseous, no vomiting. Patient has diffuse abdominal cramping, states her abdomen is sensitive but does not hurt significantly. Patient denies any fever chills, no URI or UTI symptoms. Related Data Previous Rx's Medication Instructions Recorded amlodipine 10 mg tablet 1 tab PO DAILY 30 days #30 tabs 06/03/22 atorvastatin 40 mg tablet 1 tab PO DAILY 30 days #30 tabs 06/03/22 clopidogrel 75 mg tablet 1 tab PO DAILY 30 days #30 tabs 06/03/22 ezetimibe 10 mg tablet 1 tab PO DAILY 30 days #30 tabs 06/03/22 famotidine 20 mg tablet 1 tab PO DAILY 30 days #30 tabs 06/03/22 gabapentin 100 mg capsule 200 mg PO TID 30 days #180 caps 06/03/22 hydroxyzine HCl 25 mg tablet 12.5 mg PO TID 30 days #45 tabs 06/03/22 ibuprofen 400 mg tablet 400 mg PO Q6H PRN headache 30 days 06/03/22 #60 tabs insulin glargine 100 unit/mL (3 47 ea subcut DAILY 30 days #10 mL 06/03/22 mL) subcutaneous pen (Lantus Solostar U-100 Insulin) levetiracetam 500 mg tablet 1 tab PO BID 30 days #60 tabs 06/03/22 loratadine 10 mg tablet 10 mg PO DAILY 30 days #30 tabs 06/03/22 lorazepam 0.5 mg tablet 0.25 mg PO TID 30 days #45 tabs 06/03/22 metformin 500 mg tablet,extended 1 tab PO DAILY 30 days #30 tabs 06/03/22 release 24 hr mirtazapine 15 mg tablet 1 tab PO BEDTIME 30 days #30 tabs 06/03/22 risperidone 0.5 mg tablet 0.5 mg PO BID@0800,1500 30 days 06/03/22 #60 tabs risperidone 1 mg tablet 1 mg PO BEDTIME 30 days #30 tabs 06/03/22 sertraline 50 mg tablet 150 mg PO DAILY 30 days #90 tabs 06/03/22 tramadol 50 mg tablet 50 mg PO BID 30 days #60 tabs 06/03/22 trazodone 50 mg tablet 50 mg PO BEDTIME PRN Insomnia 30 06/03/22 days #30 tabs cefuroxime axetil 500 mg tablet 500 mg PO BID #14 tabs 07/11/22 Allergies Allergy/AdvReac Type Severity Reaction Status Date / Time Sulfa (Sulfonamide Allergy Hives Verified 05/13/22 11:29 Antibiotics) codeine AdvReac Gastrointestinal Verified 05/13/22 11:29 Upset Review of Systems Review of Systems: Constitutional : No Weight loss, No Fever, No Chills, No Night Sweats, No Fatigue, No Malaise ENT/Mouth : No Hearing loss, No Ear Pain, No Nasal Congestion, No Sinus Pain, No Hoarseness, No sore throat, No Rhinorrhea, No Swallowing Difficulty Eyes: No Eye Pain, No Swelling, No Redness, No Foreign Body, No Discharge, No Vision Changes Cardiovascular : No Chest Pain, No SOB, No Dyspnea on Exertion, No Orthopnea, No Edema, No Palpitations Respiratory : No Cough, No Sputum, No Wheezing, No Smoke Exposure, No Dyspnea Gastrointestinal : Complaining of nausea, no vomiting, complaining of diffuse diarrhea, No Constipation, complaining of abdominal discomfort, No Hematochezia, No Melena Genitourinary : no irregular bleeding, No Dysuria, No Urinary Frequency, No Hematuria, No Urinary Incontinence, No Urgency, No Flank Pain, No Urinary Flow Changes, No Hesitancy Musculoskeletal : No joint pain, No Myalgias, No Joint Swelling Skin : No Skin Lesions, No rash Neuro : No Weakness, No Numbness, No Paresthesias, No Loss of Consciousness, No Dizziness, No Headache Psych : No Anxiety/Panic, No Depression, No SI/HI/AH/VH, No Social Issues, Heme/Lymph: No Bruising, No Bleeding,No Lymphadenopathy Endocrine : No Polyuria, No Polydipsia, No Temperature Intolerance [facility] Past Medical History Medical History (Updated 07/11/22 @ 23:28 by Keiry Michelle MD) Cognitive impairment Failure to thrive in adult Hypertension Type 2 diabetes mellitus Social History Social History Household Members: None Household Members Other:: Daughter lives in downstairs apartment. Housing: Apartment Do you presently have visiting nurse or other home services: Yes (Meals on wheels.) Alcohol intake: never Patient Tobacco Use Status: Former Tobacco user Substance Use Type: Marijuana Advance Directives: Yes Advance Directives on File: Yes Advance Directives Date on File: 05/14/22 service: No Sexual orientation: Straight/Heterosexual Physical Exam ED Vital Signs: Vital Signs - 24 hr 07/11/22 19:43 07/11/22 20:12 07/11/22 21:43 Temperature 98.4 F 98.4 F 98.4 F Pulse Rate 98 92 94 Respiratory Rate 16 15 18 Blood Pressure 157/85 H 170/80 H 185/71 H Pulse Oximetry 95 96 95 Oxygen Delivery Method Room Air Room Air Room Air 07/11/22 22:57 Temperature Pulse Rate Respiratory Rate Blood Pressure 167/74 H Pulse Oximetry Oxygen Delivery Method BMI result Body Mass Index 25.9 Const Other: Appearance: Alert. Oriented X3. No acute distress. seems week Eyes: Pupils equal, round and reactive to light. ENT: Pharynx normal. Neck: Normal inspection. Neck supple. No lymph nodes noted. No crepitus CVS: Normal heart rate and rhythm. Pulses normal. Normal S1 and S2 Respiratory: No respiratory distress. Breath sounds normal. No Wheezing. No rales Abdomen: Soft , [id number]-dg-gigdabms discomfort in on palpation in all quadrants. No rigidity. No distention. Skin: Skin warm and dry. Normal skin color. Normal skin turgor. Extremities: No lower extremity edema. No Lacerations. No Rash Neuro: Oriented X 3. No motor deficit. No sensory deficit. Moving all extremities. No slurred speech. CN 2 through 12 grossly intact Psych: calm, cooperative, normal affect Course Course Course Narrative: Patient is getting IV fluid now. Compazine IV. All of Patient's labs are pending CT scan of the abdomen is negative for any acute pathology. Patient was given 1 g of IV ceftriaxone for UTI. Patient has not had any fever chills, blood pressure stable. Medical Decision Making Lab Data Result diagrams: 07/11/22 20:27 07/11/22 20:27 Labs: Lab Results 07/11/22 07/11/22 07/11/22 Range/Units 20:27 20:27 20:28 WBC 11.1 H (4.8-10.8) X10*3/uL RBC 5.18 (4.20-5.50) X10*6/uL Hgb 14.6 (12.0-16.0) g/dl Hct 44.3 (37.0-47.0) % MCV 85.5 (80.0-98.0) fL MCH 28.2 (27.0-33.0) pg MCHC 33.0 (31.0-35.0) g/dl RDW 14.4 (11.0-16.0) % Plt Count 351 (160-400) X10*3/uL MPV 9.1 L (9.4-12.3) fL Immature Gran % (Auto) 0.5 H (0.0-0.4) % Neut % (Auto) 74.2 H (45-73) % Lymph % (Auto) 17.6 L (20-40) % [place] % (Auto) 7.0 (2-11) % Eos % (Auto) 0.3 (0-4) % Baso % (Auto) 0.4 (0-2) % Lymph # (Auto) 2.0 (1.2-4.9) X10*3/uL [place] # (Auto) 0.8 (0.1-1.2) X10*3/uL Eos # (Auto) 0.0 (0.0-0.4) X10*3/uL Baso # (Auto) 0.0 (0.0-0.2) X10*3/uL Abs Immat Gran (auto) 0.05 H (0.00-0.03) X10*3/uL Absolute Neuts (auto) 8.2 (2.0-8.3) x10*3/uL Absolute Nucleated RBC 0.000 (0.0-0.012) X10*3/uL Nucleated RBC % (auto) 0.0 (0.0-0.2) /100WBC Sodium 141 (135-145) mmol/L Potassium 3.4 D (3.3-5.1) mmol/L Chloride 104 (96-108) mmol/L Carbon Dioxide 20 L (22-29) mmol/L Anion Gap 20 (12-20) BUN 20 H (9-16) mg/dL Creatinine 1.09 (0.5-1.4) mg/dL Estim Creat Clear Calc 28.6 Estimated GFR 48 Random Glucose 145 H (60-115) mg/dL Lactic Acid 0.8 (0.5-2.0) mmol/L Calcium 9.2 D (8.4-10.2) mg/dL Magnesium 1.6 (1.6-2.6) mg/dL Total Bilirubin 0.5 (0.0-1.0) mg/dL Direct Bilirubin 0.3 (0.0-0.5) mg/dL AST 58 H (5-31) U/L ALT 71 H (0-31) U/L Alkaline Phosphatase 91 (39-117) U/L Troponin I High Sens (<3.5-17.0) ng/L Total Protein 6.7 (6.5-8.0) g/dL Albumin 4.2 (3.5-5.0) g/dL Lipase 32 (8-78) U/L Urine Color Urine Appearance Urine pH (5.0-9.0) Ur Specific [place] (1.005-1.025) Urine Protein (Neg-Trace) mg/dL Urine Glucose (UA) (Negative) mg/dL Urine Ketones (Negative) mg/dL Urine Blood (Negative) Urine Nitrite (Negative) Ur Leukocyte Esterase (Negative) Urine RBC (0-2) /HPF Urine WBC (0-5) /HPF Ur Squamous Epith Cells (0-2) /HPF Urine Bacteria (None Seen) Hyaline Casts (0-2) /LPF COVID-19 ([facility]) (Negative) COVID-19 Clin Com 07/11/22 07/11/22 07/11/22 Range/Units 20:28 20:28 21:45 WBC (4.8-10.8) X10*3/uL RBC (4.20-5.50) X10*6/uL Hgb (12.0-16.0) g/dl Hct (37.0-47.0) % MCV (80.0-98.0) fL MCH (27.0-33.0) pg MCHC (31.0-35.0) g/dl RDW (11.0-16.0) % Plt Count (160-400) X10*3/uL MPV (9.4-12.3) fL Immature Gran % (Auto) (0.0-0.4) % Neut % (Auto) (45-73) % Lymph % (Auto) (20-40) % [place] % (Auto) (2-11) % Eos % (Auto) (0-4) % Baso % (Auto) (0-2) % Lymph # (Auto) (1.2-4.9) X10*3/uL [place] # (Auto) (0.1-1.2) X10*3/uL Eos # (Auto) (0.0-0.4) X10*3/uL Baso # (Auto) (0.0-0.2) X10*3/uL Abs Immat Gran (auto) (0.00-0.03) X10*3/uL Absolute Neuts (auto) (2.0-8.3) x10*3/uL Absolute Nucleated RBC (0.0-0.012) X10*3/uL Nucleated RBC % (auto) (0.0-0.2) /100WBC Sodium (135-145) mmol/L Potassium (3.3-5.1) mmol/L Chloride (96-108) mmol/L Carbon Dioxide (22-29) mmol/L Anion Gap (12-20) BUN (9-16) mg/dL Creatinine (0.5-1.4) mg/dL Estim Creat Clear Calc Estimated GFR Random Glucose (60-115) mg/dL Lactic Acid (0.5-2.0) mmol/L Calcium (8.4-10.2) mg/dL Magnesium (1.6-2.6) mg/dL Total Bilirubin (0.0-1.0) mg/dL Direct Bilirubin (0.0-0.5) mg/dL AST (5-31) U/L ALT (0-31) U/L Alkaline Phosphatase (39-117) U/L Troponin I High Sens < 3.5 (<3.5-17.0) ng/L Total Protein (6.5-8.0) g/dL Albumin (3.5-5.0) g/dL Lipase (8-78) U/L Urine Color Yellow Urine Appearance Clear Urine pH 6.5 (5.0-9.0) Ur Specific [place] 1.010 (1.005-1.025) Urine Protein Negative (Neg-Trace) mg/dL Urine Glucose (UA) Negative (Negative) mg/dL Urine Ketones Trace (Negative) mg/dL Urine Blood Negative (Negative) Urine Nitrite Negative (Negative) Ur Leukocyte Esterase Moderate (2+) H (Negative) Urine RBC 0-2 (0-2) /HPF Urine WBC 11-20 H (0-5) /HPF Ur Squamous Epith Cells 0-2 (0-2) /HPF Urine Bacteria None Seen (None Seen) Hyaline Casts 0-2 (0-2) /LPF COVID-19 ([facility]) Negative (Negative) COVID-19 Clin Com See Note Discharge Plan Discharge Clinical Impression: Nausea, Diarrhea, Acute UTI Patient Disposition: Home, Self-Care Instructions: Acute Nausea and Vomiting (ED), Acute Diarrhea (ED) Additional Instructions: Please follow-up with your primary care physician tomorrow. If you have any worsening or new symptoms, please return to the emergency room or call 911 Prescriptions: New cefuroxime axetil 500 mg tablet 500 mg PO BID Qty: 14 0RF No Action trazodone 50 mg Tablet 50 mg PO BEDTIME PRN (Reason: Insomnia) 30 Days Qty: 30 0RF tramadol 50 mg Tablet 50 mg PO BID 30 Days Qty: 60 0RF lorazepam 0.5 mg Tablet 0.25 mg PO TID 30 Days Qty: 45 0RF ibuprofen 400 mg Tablet 400 mg PO Q6H PRN (Reason: headache) 30 Days Qty: 60 0RF hydroxyzine HCl 25 mg Tablet 12.5 mg PO TID 30 Days Qty: 45 0RF gabapentin 100 mg Capsule 200 mg PO TID 30 Days Qty: 180 0RF sertraline 50 mg Tablet 150 mg PO DAILY 30 Days Qty: 90 0RF risperidone 1 mg Tablet 1 mg PO BEDTIME 30 Days Qty: 30 0RF risperidone 0.5 mg Tablet 0.5 mg PO BID@0800,1500 30 Days Qty: 60 0RF atorvastatin 40 mg tablet 1 tab PO DAILY 30 Days Qty: 30 0RF levetiracetam 500 mg tablet 1 tab PO BID 30 Days Qty: 60 0RF clopidogrel 75 mg tablet 1 tab PO DAILY 30 Days Qty: 30 0RF famotidine 20 mg tablet 1 tab PO DAILY 30 Days Qty: 30 0RF amlodipine 10 mg tablet 1 tab PO DAILY 30 Days Qty: 30 0RF mirtazapine 15 mg tablet 1 tab PO BEDTIME 30 Days Qty: 30 0RF metformin 500 mg tablet extended release 24 hr 1 tab PO DAILY 30 Days Qty: 30 0RF loratadine 10 mg tablet 10 mg PO DAILY 30 Days Qty: 30 0RF ezetimibe 10 mg tablet 1 tab PO DAILY 30 Days Qty: 30 0RF insulin glargine [Lantus Solostar U-100 Insulin] 100 unit/mL (3 mL) insulin pen 47 ea subcut DAILY 30 Days Qty: 10 0RF
--- NOTE | 2022-07-11 20:00 | PC.NURSE ---
Diarrhea X 3 days. No nausea, no vomiting, pain in lower abdominal quadrant. C/o general weakness , dizziness and lightheadedness on standing. Pt is A and O X 2. Denies chest pain or SOB.
[2022-07-11 20:12] VITALS: BP 170/80; PULSE 92; RESP 15; TEMP 36.9; O2SAT 96
--- OUTSIDE RECORDS SUMMARY | 2022-07-11 20:31 | XMS_ITS | Continuity of Care Document ---
:1940 Author Organization [facility] Adult Address [address] [place] [address]- Care Team Providers Name Role Phone Bharat LOW, Christel Primary Care Physician [phone] Encounter [facility] Date(s): 04/16/22 - 05/16/22 [facility] [address] [place] [phone]- Allergies, Adverse Reactions, Alerts Substance Reaction Severity Status codeine Active fentanyl Active sulfonamides Active Immunizations Given and Recorded Vaccine Date Status Refusal Reason SARS-CoV-2 (COVID-19) mRNA-1273 vaccine 10/02/21 Recorded influenza virus vaccine, inactivated 06/24/21 Recorded influenza virus vaccine, inactivated 06/21/20 Recorded influenza virus vaccine, inactivated 08/11/17 Recorded influenza virus vaccine, inactivated 06/24/17 Recorded influenza virus vaccine, inactivated 07/12/16 Recorded influenza virus vaccine, inactivated1 06/24/15 Given influenza virus vaccine, inactivated2 07/02/13 Given influenza virus vaccine, inactivated3 06/09/12 Given influenza virus vaccine, inactivated4 06/18/11 Given influenza virus vaccine, inactivated5 06/18/11 Given influenza virus vaccine, inactivated 06/19/10 Recorded influenza virus vaccine, inactivated6 06/30/09 Given influenza virus vaccine, inactivated7 09/25/08 Given SARS-CoV-2 (COVID-19) mRNA BNT-162b2 vac 12/18/20 Recorde d SARS-CoV-2 (COVID-19) mRNA BNT-162b2 vac 11/27/20 Recorde d Influenza Virus Vaccine (oldterm) 07/05/20 Recorded pneumococcal 23-valent vaccine 07/12/16 Recorded pneumococcal 13-valent vaccine8 06/24/15 Given pneumococcal 13-valent vaccine9 12/27/14 Given Fluzone (oldterm)10 07/19/14 Recorded Zoster Vaccine Live 07/02/13 Recorded Zostavax (oldterm)11 06/09/12 Given tetanus-diphtheria toxoids (Td)12 11/16/09 Given Pneumococcal Poly (PPV23) (oldterm)13 11/16/09 Given influ virus vac, H1N1, inactive(oldterm)14 10/14/09 Given Influenza Inactive (IM) (oldterm)15 07/25/07 Given 1Admin Note: rite tgu1Avjym Note: ofgdpulrx0Qymwd Note: ymghsqqlb6Rjmnu Note: FONUBKRXQ4Bzmwu Note: tezkhnvaz5Fzfdr Note: kynpzyuzl1Hlmuvz Comment: lot [id number] Note: rite ust4Cmwfd/Late Reason: Other :10Location History: [facility] mtaliaud72Lopgu Note: zxhlrroxr70Qmnnj Note: vis 08/30/813Admin Note: vis 01/26/914Admin Note: jfgtragvu71Fqwaa Note: administered at local pharmacy ([facility]) Medications acetaminophen 325 mg oral tablet 650 mg, By Mouth, Every 4 hours, PRN, Temperature Greater than 100.5, Refills 0, Maintenance, Pain ,Mild, 12/24/21 13:16:00 EDT, Partial fill upon patient request if the prescription is for a scheduleII opioid drug. Start Date: 12/24/21 Status: OrderedamLODIPine 10 mg oral tablet 1 tablet, By Mouth, Daily, # 28 tablet, 5 Refills, [facility], 145, cm, 03/16/22 23:36:00 EDT, Height, 60, kg, 03/16/22 23:36:00 EDT, Dry Weight Start Date: 03/21/22 Status: OrderedArtificial Tears preserved solution 2 drops, Eye, Right, 3 times a day, Until she can close her right eye, # 10 mL, 2 Refills, Maintenance, 08/04/21 14:35:00 EDT, [facility], Partial fill upon patient request if the prescription is for a schedule II opioid drug., 2 drops E... Start Date: 08/04/21 Status: Orderedatenolol 25 mg oral tablet 25 mg, 1, tablet, By Mouth, Daily, # 30 tablet, Refills 0, Maintenance, 01/15/22 14:51:00 EDT, Partial fill upon patient request if the prescription is for a schedule II opioid drug. Start Date: 01/15/22 Status: Orderedatorvastatin 40 mg oral tablet 1 tablet = 40 mg, By Mouth, Daily, # 90 tablet, 1 Refills, Maintenance, 02/08/22 14:47:00 EDT, Tablet, [facility], Partial fill upon patient request if the prescription is for a schedule II opioid drug., 145, cm, 01/15/22 14:16:00 EDT, Hei... Start Date: 02/08/22 Status: Orderedclopidogrel 75 mg oral tablet 1, tablet, By Mouth, Daily, # 28 tablet, Refills 0, [facility], [facility], cm, 04/04/22 9:06:00 EDT, Height, 60, kg, 03/16/22 23:36:00 EDT, Dry Weight Start Date: 04/18/22 Status: Ordereddocusate-senna 50 mg-8.6 mg oral capsule 1 capsule, By Mouth, 2 times a day, PRN Constipation, # 60 capsule, 0 Refills, Maintenance, 01/15/2214:54:00 EDT, Capsule, Partial fill upon patient request if the prescription is for a schedule II opioid drug. Start Date: 01/15/22 Status: Orderedfamotidine 20 mg oral tablet 1, tablet, By Mouth, Daily at bedtime, AVOID EATING AND DRINKING FOR 10 MINUTES AFTER EACH DOSE., # 28 tablet, Refills 1, Route to Pharmacy Electronically, [facility], 145, cm, 04/04/22 9:06:00 EDT, Height, 60, kg, 03/16/22 23:36:00 EDT,... Start Date: 04/18/22 Status: Orderedgabapentin 100 mg oral capsule 100 mg, 1, capsule, By Mouth, 3 times a day, # 180 capsule, Refills 0, Maintenance, 02/27/22 15:29:00 EDT, Partial fill upon patient request if the prescription is for a schedule II opioid drug. Start Date: 02/27/22 Status: OrderedImitrex 50 mg oral tablet 1 tablet = 50 mg, By Mouth, Daily, PRN for migraine headache, may repeat dose after 2 hours up to a maximum of 2, # 9 tablet, 0 Refills, Maintenance, 05/07/21 15:01:00 EDT, Tablet, [facility], Partial fill upon patient request if the presc... Start Date: 05/07/21 Status: OrderedInsulin Glargine Inj = 40 units, Subcutaneous Injection, Daily at bedtime, 0 Refills, Maintenance, 12/24/21 13:19:00 EDT,Injection, Partial fill upon patient request if the prescription is for a schedule II opioid drug. Start Date: 12/24/21 Status: OrderedLantus Solostar Pen 100 units/mL subcutaneous solution = 47 units, Subcutaneous Injection, Daily, # 10 mL, 5 Refills, Maintenance, 04/04/22 9:02:00 EDT, Injection, [facility], Partial fill upon patient request if the prescription is for a schedule II opioid drug., 145, cm, 04/04/22 8:28:00 EDT... Start Date: 04/04/22 Status: Orderedloratadine 10 mg oral tablet See Instructions, TAKE 1 TABLET BY MOUTH DAILY, # 28 tablet, Refills 5, Instructions Replace Required Details, Route to Pharmacy Electronically, [facility], 145, cm, 04/04/22 9:06:00 EDT,Height, 60, kg, 03/16/22 23:36:00 EDT, Dry Weight Start Date: 05/16/22 Status: OrderedLORazepam 0.5 mg oral tablet 1 tablet = 0.5 mg, By Mouth, 2 times a day, PRN as needed for anxiety, 0 Refills, Maintenance, 12/05/21 12:17:00 EST, Tablet, Partial fill upon patient request if the prescription is for a schedule II opioid drug. Start Date: 12/05/21 Status: Orderedmelatonin 3 mg oral tablet 2 tablet = 6 mg, By Mouth, Daily at bedtime, PRN Insomnia, 0 Refills, Maintenance, 12/24/21 13:16:00EDT, Tablet, Partial fill upon patient request if the prescription is for a schedule II opioid drug. Start Date: 12/24/21 Status: OrderedMetFORMIN (Eqv-Glucophage XR) 500 mg oral tablet, extended release 1 tablet, By Mouth, Daily, # 28 tablet, 2 Refills, [facility], 145, cm, 03/16/22 23:36:00 EDT, Height, 60, kg, 03/16/22 23:36:00 EDT, Dry Weight Start Date: 03/21/22 Status: Orderedmirtazapine 15 mg oral tablet 1 tablet = 15 mg, By Mouth, Daily at bedtime, 0 Refills, Maintenance, 12/05/21 12:16:00 EST, Tablet,Partial fill upon patient request if the prescription is for a schedule II opioid drug. Start Date: 12/05/21 Status: OrderedOne Touch Ultra 2 Glucose Meter See Instructions, # 1 each, Maintenance, USE TO CHECK GLUCOSE TID DX E11.9, 01/21/22 10:45:00 EDT, Supply, 145, cm, 01/15/22 14:16:00 EDT, Height, 62.5, kg, 12/23/21 5:49:00 EDT, Dry Weight Start Date: 01/21/22 Status: OrderedOne Touch Ultra Test Strips See Instructions, # 100 each, Refills 5, Tot. Refills 5, Maintenance, USE TO CHECK GLUCOSE TID DX E11.9, 04/04/22 9:12:00 EDT, Supply, 145, cm, 04/04/22 9:06:00 EDT, Height, 60, kg, 03/16/22 23:36:00 EDT, Dry Weight Start Date: 04/04/22 Status: OrderedOne Touch UltraSoft Lancets See Instructions, # 100 each, Refills 5, Tot. Refills 5, Maintenance, USE TO CHECK GLUCOSE TID DX E11.9, 01/21/22 10:45:00 EDT, Supply, 145, cm, 01/15/22 14:16:00 EDT, Height, 62.5, kg, 12/23/21 5:49:00 EDT, Dry Weight Start Date: 01/21/22 Status: OrderedPen [place], 31 G x 5 mm BD Ultra Fine III See Instructions, # 100 each, Refills 5, Tot. Refills 5, Maintenance, USE TO INJECT LANTUS SOLOSTAR ONCE DAILY DX E11.9, 01/16/22 15:46:00 EDT, Supply, 145, cm, 01/15/22 14:16:00 EDT, Height, 62.5, kg,12/23/21 5:49:00 EDT, Dry Weight Start Date: 01/16/22 Status: OrderedProAir HFA 90 mcg/inh inhalation aerosol 1 puffs = 90 mcg, Inhalation, 4 times a day, PRN as needed for wheezing, # 1 each, 0 Refills, Maintenance, 02/12/21 16:56:00 EDT, Inhaler, [facility], Partial fill upon patient request if the prescription is for a schedule II opioid drug.,... Start Date: 02/12/21 Status: Orderedsertraline 50 mg oral tablet 1 tablet = 50 mg, By Mouth, Daily, # 30 tablet, 0 Refills, Maintenance, 12/05/21 12:16:00 EST, Tablet, Partial fill upon patient request if the prescription is for a schedule II opioid drug. Start Date: 12/05/21 Status: Orderedsimethicone 80 mg oral tablet, chewable 80 mg, 1, tablet, Every 8 hours, PRN, Refills 0, Maintenance, Gas, 01/15/22 14:51:00 EDT, Partial fill upon patient request if the prescription is for a schedule II opioid drug. Start Date: 01/15/22 Status: Ordered Problem List Condition Effective Dates Status Health Status Informant Allergic rhinitis(Confirmed) Active Asthma(Confirmed) Active COPD (chronic obstructive pulmonary Active disease)(Confirmed) Chronic post-traumatic stress Active disorder(Confirmed) Diabetes mellitus type 2(Confirmed) 1999 Active Dyslipidemia(Confirmed) Active Essential hypertension(Confirmed) 1999 Active Fracture dislocation of right shoulder Active joint(Confirmed) Gastro-esophageal reflux 2000 Active disease(Confirmed) Hepatitis C(Confirmed) 1997 Active Hiatal hernia(Confirmed) Active Left carotid stenosis(Confirmed) Active Low back pain(Confirmed) 2000 Active Migraine(Confirmed) 1997 Active Mood disorder(Confirmed) 1997 Active Obesity(Confirmed) Active *[facility] [phone] 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
--- OUTSIDE RECORDS SUMMARY | 2022-07-11 20:31 | XMS_ITS | Continuity of Care Document ---
:1940 Author Organization [facility] Adult Address [address] [place] [address]- Care Team Providers Name Role Phone Bharat LOW, Christel Primary Care Physician Encounter [facility] [place] Date(s): 04/16/22 - 05/16/22 [facility] [address] [place] [phone]- Allergies, Adverse Reactions, Alerts Substance Reaction Severity [...] (IM) (oldterm)15 07/25/07 Given 1Admin Note: rite ebv3Usafa Note: gufbujizx3Mnqdh Note: nmitooahz5Znybi Note: FTZPMSBIE0Abokx Note: wgdlvnboz8Mxcuw Note: iccrltzzd4Cuzxop Comment: lot [id number] Note: rite aco2Qhtoz/Late Reason: Other :10[facility] tmlyhjdv91Fdgrq Note: ipgvgxyqa46Tkmej Note: vis 08/30/813Admin Note: vis 01/26/914Admin Note: xlsvnsdeb19Nrgyz Note: administered at local pharmacy ([facility]) Medications [...] mL, 2 Refills, Maintenance, 08/04/21 14:35:00 EDT, [facility], Partial fill upon patient request if [...] Refills 0, [facility], cm, 04/04/22 9:06:00 EDT, Height, 60, [...] Refills 1, Route to Pharmacy Electronically, [facility], 145, cm, 04/04/22 9:06:00 EDT, Height, 60, [...] Required Details, Route to Pharmacy Electronically, [facility], 145, cm, 04/04/22 9:06:00 EDT,Height, 60, kg, [...] Daily, # 28 tablet, 2 Refills, [facility], 145, cm, 03/16/22 23:36:00 EDT, Height, 60, [...] Dry Weight Start Date: 01/21/22 Status: OrderedPen [place], 31 G x 5 mm BD Ultra [...] Mood disorder(Confirmed) 1997 Active Obesity(Confirmed) Active *[facility] [phone] 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
--- OUTSIDE RECORDS SUMMARY | 2022-07-11 20:31 | XMS_ITS | Continuity of Care Document ---
:1940 Author Organization [facility] Address Unavailable , Care Team Providers Name Role Phone Christel Nicholson MD Primary Care Physician [phone] [place] [facility] 03/26[place] - 04/25/22 [facility] Allergies, Adverse Reactions, Alerts Substance Reaction Severity [...] (IM) (oldterm)15 07/25/07 Given 1Admin Note: rite jsj2Sjlye Note: lyyigbzdj0Vcyyi Note: nuznieayk2Etdfh Note: BGIGYZTGA6Yurvh Note: snooypuxh6Wqfrf Note: uuoesobnf7Cwzvrk Comment: lot [id number] Note: rite adg4Cdavq/Late Reason: Other :10Location History: [facility] exphopqc43Mqvdy Note: fcoayglba83Vrwvt Note: vis 08/30/813Admin Note: vis 01/26/914Admin Note: dnkrgwrhk76Ekbzu Note: administered at local pharmacy ([facility]) Medications [...] Daily, # 28 tablet, 5 Refills, [facility], 145, cm, 03/16/22 23:36:00 EDT, Height, 60, kg, 03/16/22 23:36:00 EDT, Dry Weight Start Date: 03/21/22 Status: OrderedArtificial Tears preserved solution 2 drops, Eye, Right, 3 times a day, Until she can close her right eye, # 10 mL, 2 Refills, Maintenance, 08/04/21 14:35:00 EDT, [facility], Partial fill upon patient request if [...] Refills 0, [facility], cm, 04/04/22 9:06:00 EDT, Height, [...] Refills 1, [facility], [facility], cm, 04/04/22 9:06:00 EDT, Height, [...] 04/04/22 Status: Orderedloratadine 10 mg oral tablet 1, tablet, By Mouth, Daily, # 28 tablet, Refills 2, [facility], [facility], cm, 02/11/22 9:18:00 EDT, Height, 62.5, kg, 12/23/21 5:49:00 EDT, Dry Weight Start Date: 02/21/22 Status: OrderedLORazepam 0.5 mg oral tablet 1 [...] Daily, # 28 tablet, 2 Refills, [facility], 145, cm, 03/16/22 23:36:00 EDT, Height, 60, [...] Dry Weight Start Date: 01/21/22 Status: OrderedPen [place], 31 G x 5 mm BD Ultra [...] 0 Refills, Maintenance, 02/12/21 16:56:00 EDT, Inhaler, [facility], Partial fill upon patient [...] II opioid drug. Start Date: 01/15/22 Status: OrderedtraMADol 50 mg oral tablet 1 tablet = 50 mg, By Mouth, Every 8 hours, PRN as needed for pain, for 30 days, # 90 tablet, 0 Refills, Acute 05/04/22 9:03:00 EDT, 04/04/22 9:03:00 EDT, Tablet, [facility], Partial fill upon patient request if the prescription is for a sc... 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
--- OUTSIDE RECORDS SUMMARY | 2022-07-11 20:31 | XMS_ITS | Continuity of Care Document ---
:1940 Author Organization [facility] Address Unavailable , Care Team Providers Name Role Phone Bharat LOW, Christel Primary Care Physician [place] [facility] [place] Date(s): 04/04/21 - 08/02/21 [facility] Attending Physician: Holli Lea MD Admitting Physician: Holli Lea MD Referring Physician: Nikky Marshall NP Allergies, Adverse Reactions, Alerts Substance Reaction Severity Status codeine Active fentanyl Active sulfonamides Active Lipitor Active Tylenol1 Active 1Pt states PCP advises her not to take it due to current medical issues. Immunizations Given and Recorded Vaccine Date Status Refusal Reason SARS-CoV-2 (COVID-19) mRNA BNT-162b2 vac 12/18/20 Recorde d SARS-CoV-2 (COVID-19) mRNA BNT-162b2 vac 11/27/20 Recorde d Influenza Virus Vaccine (oldterm) 07/05/20 Recorded influenza virus vaccine, inactivated 06/21/20 Recorded [...] Given influenza virus vaccine, inactivated7 09/25/08 Given pneumococcal 23-valent vaccine 07/12/16 Recorded pneumococcal 13-valent vaccine8 06/24/15 Given pneumococcal 13-valent vaccine9 12/27/14 Given Fluzone (oldterm)10 07/19/14 Recorded Zoster Vaccine Live 07/02/13 Recorded Zostavax (oldterm)11 06/09/12 Given tetanus-diphtheria toxoids (Td)12 11/16/09 Given Pneumococcal Poly (PPV23) (oldterm)13 11/16/09 Given influ virus vac, H1N1, inactive(oldterm)14 10/14/09 Given Influenza Inactive (IM) (oldterm)15 07/25/07 Given 1Admin Note: rite rak1Tieqq Note: foldapnmd2Legbi Note: gmduydrro7Zwnad Note: HOBGYKFDL4Nahfs Note: ttmbbzqqy0Qexoy Note: dgznmcief0Ndaitb Comment: lot [id number] Note: rite ais7Afkfk/Late Reason: Other :10Location History: [facility] fpfwqbtm45Esbca Note: ivybazzbl00Giikl Note: vis 08/30/813Admin Note: vis 01/26/914Admin Note: uouvcadvw97Ryaty Note: administered at local pharmacy ([facility]) Medications amLODIPine 10 mg oral tablet 10 mg, 1, tablet, By Mouth, Daily, DOSE INCREASE, # 30 tablet, Refills 5, Tot. Refills 5, Maintenance, 03/14/21 16:39:00 EDT, Route to Pharmacy Electronically, [facility], Partial fill upon patient request if the prescription is for a sche... Start Date: 03/14/21 Stop Date: 09/10/21 Status: Orderedclopidogrel 75 mg oral tablet 1, tablet, By Mouth, Daily, # 28 tablet, Refills 5, Tot. Refills 5, Maintenance, 04/12/21 13:25:00 EDT, Route to Pharmacy Electronically, [facility], 162, cm, 03/16/21 8:09:00 EDT, Height, 67.1, kg, 10/11/20 23:00:00 EST, Dry Weight Start Date: 04/12/21 Status: Orderedezetimibe 10 mg oral tablet 1 tablet, By Mouth, Daily, # 28 tablet, 5 Refills, Maintenance, 04/12/21 9:15:00 EDT, [facility], PT OVERDUE FOR BLOOD WORK, 162, cm, 03/16/21 8:09:00 EDT, Height, 67.1, kg, 10/11/20 23:00:00 EST, Dry Weight Start Date: 04/12/21 Status: Orderedfamotidine 20 mg oral tablet 1, tablet, By Mouth, Daily at bedtime, AVOID EATING AND DRINKING FOR 10 MINUTES AFTER EACH DOSE., # 28 tablet, Refills 2, Route to Pharmacy Electronically, [facility], 144.7, cm, 05/16/2115:55:00 EDT, Height, 52.2, kg, 05/08/21 3:48:00... Start Date: 07/04/21 Status: OrderedFLUoxetine 20 mg oral capsule 20 mg, 1, capsule, By Mouth, Daily, # 30 capsule, Refills 0, Maintenance, 01/22/21 16:47:00 EDT, Partial fill upon patient request if the prescription is for a schedule II opioid drug. Start Date: 01/22/21 Status: OrderedImitrex 50 mg oral tablet 1 tablet = 50 mg, By Mouth, Daily, PRN for migraine headache, may repeat dose after 2 hours up to a maximum of 2, # 9 tablet, 0 Refills, Maintenance, 05/07/21 15:01:00 EDT, Tablet, [facility], Partial fill upon patient request if the presc... Start Date: 05/07/21 Status: OrderedLantus Solostar Pen 100 units/mL subcutaneous solution = 45 units, Subcutaneous Injection, Daily at bedtime, # 10 mL, 0 Refills, Maintenance, 10/11/20 3:32:00 EST, Solution, Partial fill upon patient request if the prescription is for a schedule II opioid drug. Start Date: 10/11/20 Status: Orderedloratadine 10 mg oral tablet 10 mg, 1, tablet, By Mouth, Daily, # 30 tablet, Refills 5, Tot. Refills 5, Maintenance, 08/01/21 14:20:00 EDT, Route to Pharmacy Electronically, [facility], Partial fill upon patient request if the prescription is for a schedule II opioid... Start Date: 08/01/21 Status: OrderedProAir HFA 90 mcg/inh inhalation aerosol 1 puffs = 90 mcg, Inhalation, 4 times a day, PRN as needed for wheezing, # 1 each, 0 Refills, Maintenance, 02/12/21 16:56:00 EDT, Inhaler, [facility], Partial fill upon patient request if the prescription is for a schedule II opioid drug.,... Start Date: 02/12/21 Status: Orderedzolpidem 5 mg oral tablet 2 tablet = 10 mg, By Mouth, Daily at bedtime, PRN for sleep, 0 Refills, Maintenance, 02/27/21 10:04:00 EDT, Tablet, Partial fill upon patient request if the prescription is for a schedule II opioid drug. Start Date: 02/27/21 Status: Ordered Problem List Condition Effective Dates Status Health Status Informant AAA - Abdominal aortic 1999 Active aneurysm(Confirmed)1 Allergic rhinitis(Confirmed) Active Asthma(Confirmed) Active COPD (chronic obstructive pulmonary Active disease)(Confirmed) Chronic post-traumatic stress Active disorder(Confirmed) Diabetes mellitus type 2(Confirmed) 1999 Active Dyslipidemia(Confirmed) Active Essential hypertension(Confirmed) 1999 Active Gastro-esophageal reflux 2000 Active disease(Confirmed) Hepatitis C(Confirmed) 1997 Active Hiatal hernia(Confirmed) Active Low back pain(Confirmed) 2000 Active Migraine(Confirmed) 1997 Active Mood disorder(Confirmed) 1998 Active Obesity(Confirmed) Active *[facility] [phone] 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
--- OUTSIDE RECORDS SUMMARY | 2022-07-11 20:31 | XMS_ITS | Continuity of Care Document ---
:1940 Author Organization [facility] Adult Address [address] [place] [address]- Care Team Providers Name Role Phone Bharat LOW, Christel Primary Care Physician [place] [facility] [place] 03/07/22 [facility] [address] [place] [address]- Allergies, Adverse Reactions, Alerts Substance Reaction Severity [...] (IM) (oldterm)15 07/25/07 Given 1Admin Note: rite jhs7Tosjp Note: teqxbkjyu5Vwazi Note: pouudtqol4Jiafj Note: XQOYYODLI8Pucao Note: nzkddqmye2Zmoid Note: wowmooifm2Csysdw Comment: lot [id number] Note: riteduardo hrp9Vykij/Late Reason: Other :10Location History: [facility] [id number] Note: hxbpynxfd67Zmlqq Note: vis 08/30/813Admin Note: vis 01/26/914Admin Note: ghqxrjhwm33Rulpk Note: administered at local pharmacy ([facility]) Medications acetaminophen 325 mg oral tablet 650 mg, By Mouth, Every 4 hours, PRN, Temperature Greater than 100.5, Refills 0, Maintenance, Pain ,Mild, 12/24/21 13:16:00 EDT, Partial fill upon patient request if the prescription is for a scheduleII opioid drug. Start Date: 12/24/21 Status: OrderedamLODIPine 10 mg oral tablet 10 mg, 1, tablet, By Mouth, Daily, HOLD FOR SPB LESS THAN 120, # 30 tablet, Refills 5, Tot. Refills 5, Maintenance, 08/30/21 7:59:00 EST, Route to Pharmacy Electronically, [facility], Partial fill upon patient request if the prescription i... Start Date: 08/30/21 Stop Date: 02/26/22 Status: OrderedArtificial Tears preserved solution 2 drops, Eye, Right, 3 times a day, Until she can close her right eye, # 10 mL, 2 Refills, Maintenance, 08/04/21 14:35:00 EDT, [facility], Partial fill upon patient request if [...] tablet, Refills 5, Tot. Refills 5, Maintenance, 09/28/21 10:07:00 EST, Route to Pharmacy Electronically, [facility], 144.7, cm, 08/15/21 16:06:00 EDT, Height, 52.2, kg, 05/08/21 3:48:00 EDT, Dry Weight Start Date: 09/28/21 Status: Ordereddocusate-senna 50 mg-8.6 mg oral capsule 1 capsule, By Mouth, 2 times a day, PRN Constipation, # 60 capsule, 0 Refills, Maintenance, 01/15/2214:54:00 EDT, Capsule, Partial fill upon patient request if the prescription is for a schedule II opioid drug. Start Date: 01/15/22 Status: Orderedfamotidine 20 mg oral tablet See Instructions, TAKE 1 TABLET BY MOUTH AT BEDTIME. AVOID EATING AND DRINKING FOR 10 MINUTES AFTER EACH DOSE., # 28 tablet, Refills 2, Instructions Replace Required Details, Route to Pharmacy Electronically, [facility], 145, cm, ... Start Date: 01/23/22 Status: Orderedgabapentin 100 mg oral capsule 100 [...] Daily, # 10 mL, 5 Refills, Maintenance, 02/27/22 15:14:00 EDT, Injection, [facility], Partial fill upon patient request if the prescription is for a schedule II opioid drug., 145, cm, 02/27/22 14:46:00 E... Start Date: 02/27/22 Status: Orderedloratadine 10 mg oral tablet 1, tablet, By Mouth, Daily, # 28 tablet, Refills 2, Route to Pharmacy Electronically, [facility], 145, cm, 02/11/22 9:18:00 EDT, Height, [...] opioid drug. Start Date: 12/24/21 Status: OrderedMetFORMIN (Eqv-Fortamet) 500 mg oral tablet, extended release 1 tablet = 500 mg, By Mouth, Daily, # 90 tablet, 0 Refills, Maintenance, 01/15/22 15:20:00 EDT, [facility], Partial fill upon patient request if the prescription is for a schedule II opioid drug., 145, cm, 01/15/22 14:16:00 EDT, Height, 62... Start Date: 01/15/22 Status: Orderedmirtazapine 15 mg oral tablet 1 [...] USE TO CHECK GLUCOSE TID DX E11.9, 02/27/22 15:40:00 EDT, Supply, 145, cm, 02/27/22 14:46:00 EDT, Height, 62.5, kg, 12/23/21 5:49:00 EDT, Dry Weight Start Date: 02/27/22 Status: OrderedOne Touch UltraSoft Lancets See Instructions, # 100 each, Refills 5, Tot. 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
--- OUTSIDE RECORDS SUMMARY | 2022-07-11 20:31 | XMS_ITS | Continuity of Care Document ---
:1940 Author Organization [facility] Adult Address [address] [place] [address]- Care Team Providers Name Role Phone Bharat LOW, Christel Primary Care Physician Encounter [facility] [place] Date(s): 02/06/21 - 03/08/21 [facility] [address] [place] [address]- Encounter Diagnosis Asthma exacerbation (Discharge Diagnosis) - 02/06/21 Allergies, Adverse Reactions, Alerts Substance Reaction Severity Status codeine Active fentanyl Active sulfonamides Active Lipitor Active Immunizations Given and Recorded Vaccine Date Status Refusal Reason SARS-CoV-2 (COVID-19) mRNA BNT-162b2 vac 12/18/20 Recorde d SARS-CoV-2 (COVID-19) mRNA BNT-162b2 vac 11/27/20 Recorde d Influenza Virus Vaccine (oldterm) 07/05/20 Recorded influenza virus vaccine, inactivated 08/11/17 Recorded influenza virus vaccine, inactivated1 06/24/15 Given influenza virus vaccine, inactivated2 07/02/13 Given influenza virus vaccine, inactivated3 06/09/12 Given influenza virus vaccine, inactivated4 06/18/11 Given influenza virus vaccine, inactivated5 06/18/11 Given influenza virus vaccine, inactivated6 06/30/09 Given influenza virus vaccine, inactivated7 09/25/08 Given pneumococcal 13-valent vaccine8 06/24/15 Given pneumococcal 13-valent vaccine9 12/27/14 Given Fluzone (oldterm)10 07/19/14 Recorded Zostavax (oldterm)11 06/09/12 Given tetanus-diphtheria toxoids (Td)12 11/16/09 Given Pneumococcal Poly (PPV23) (oldterm)13 11/16/09 Given influ virus vac, H1N1, inactive(oldterm)14 10/14/09 Given Influenza Inactive (IM) (oldterm)15 07/25/07 Given 1Admin Note: rite bws1Aqpbj Note: sdywuryew9Wzuqx Note: migtdfluu7Nozbt Note: [id number] Note: dtmixyynd2Pmatt Note: ysizwevxt1Lkkqoa Comment: lot [id number] Note: rite ars4Rmrvz/Late Reason: Other :10Location History: [facility] bznznual31Nvodf Note: hetggwxtr33Zbebe Note: vis 08/30/813Admin Note: vis 01/26/914Admin Note: eudmiujxn68Knxeo Note: administered at local pharmacy ([facility]) Medications amLODIPine 10 mg oral tablet 10 mg, 1, tablet, By Mouth, Daily, DOSE INCREASE, # 30 tablet, Refills 0, Tot. Refills 0, Maintenance, 03/01/21 11:12:00 EDT, Route to Pharmacy Electronically, [facility], Partial fill upon patient request if the prescription is for a sche... Start Date: 03/01/21 Stop Date: 03/31/21 Status: Orderedclopidogrel 75 mg oral tablet 1, tablet, By Mouth, Daily, # 28 tablet, Refills 0, Tot. Refills 0, Maintenance, 02/15/21 8:57:00 EDT, Route to Pharmacy Electronically, [facility], 162, cm, 02/12/21 15:15:00 EDT, Height, 67.1, kg, 10/11/20 23:00:00 EST, Dry Weight Start Date: 02/15/21 Status: Orderedezetimibe 10 mg oral tablet 1 tablet, By Mouth, Daily, # 28 tablet, 0 Refills, Maintenance, 02/15/21 8:57:00 EDT, [facility], PT OVERDUE FOR BLOOD WORK, 162, cm, 02/12/21 15:15:00 EDT, Height, 67.1, kg, 10/11/20 23:00:00 EST, Dry Weight Start Date: 02/15/21 Status: Orderedfamotidine 20 mg oral tablet 20 mg, 1, tablet, By Mouth, Daily at bedtime, avoid eating and drinking for 10 minutes after each dose, # 90 tablet, Refills 1, Tot. Refills 1, Maintenance, 01/19/21 9:32:00 EDT, Route to Pharmacy Electronically, [facility], Partial fill u... Start Date: 01/19/21 Status: OrderedFlonase 50 mcg/inh nasal spray 1 sprays, Nares, Both, 2 times a day, # 16 Gm, 0 Refills, Maintenance, 02/12/21 17:06:00 EDT, [place], Partial fill upon patient request if the prescription is for a schedule II opioid drug., 1 sprays Nares, Both 2 times a day, 1... Start Date: 02/12/21 Status: OrderedFLUoxetine 20 mg oral capsule 20 mg, 1, capsule, By Mouth, Daily, # 30 capsule, Refills 0, Maintenance, 01/22/21 16:47:00 EDT, Partial fill upon patient request if the prescription is for a schedule II opioid drug. Start Date: 01/22/21 Status: OrderedLantus Solostar Pen 100 units/mL subcutaneous solution = 45 units, Subcutaneous Injection, Daily at bedtime, # 10 mL, 0 Refills, Maintenance, 10/11/20 3:32:00 EST, Solution, Partial fill upon patient request if the prescription is for a schedule II opioid drug. Start Date: 10/11/20 Status: OrderedLantus Solostar Pen 100 units/mL subcutaneous solution = 45 units, Subcutaneous Injection, Daily at bedtime, # 40 mL, 5 Refills, Maintenance, 02/26/21 10:36:00 EDT, Injection, [facility], 162, cm, 02/12/21 15:15:00 EDT, Height, 67.1, kg, 10/11/20 23:00:00 EST, Dry Weight Start Date: 02/26/21 Status: Orderedloratadine 10 mg oral tablet 10 mg, 1, tablet, By Mouth, Daily, # 30 tablet, Refills 5, Tot. Refills 5, Maintenance, 02/12/21 16:56:00 EDT, Route to Pharmacy Electronically, [facility], Partial fill upon patient request if the prescription is for a schedule II opioid... Start Date: 02/12/21 Status: OrderedLORazepam 0.5 mg oral tablet 1 tablet = 0.5 mg, By Mouth, 2 times a day, PRN Anxiety, 0 Refills, Maintenance, 10/17/20 10:35:00 EST, Tablet, Partial fill upon patient request if the prescription is for a schedule II opioid drug. Start Date: 10/17/20 Status: OrderedPen [place], 31 G x 5 mm BD Ultra Fine III See Instructions, # 100 each, Refills 3, Tot. Refills 3, Maintenance, use to inject Lantus Solostar once daily dx e11.9, 11/03/20 14:10:00 EST, [facility], 162, cm, 10/25/20 8:09:00 EST, Height, 67.1, kg, 10/11/20 23:00:00 EST, Dry Weight Start Date: 11/03/20 Status: OrderedProAir HFA 90 mcg/inh inhalation aerosol 1 puffs = 90 mcg, Inhalation, 4 times a day, PRN as needed for wheezing, # 1 each, 0 Refills, Maintenance, 02/12/21 16:56:00 EDT, Inhaler, [facility], Partial fill upon patient request if the prescription is for a schedule II opioid drug.,... Start Date: 02/12/21 Status: OrderedWixela Inhub 250 mcg-50 mcg inhalation powder 1 inhalation, Inhalation, 2 times a day, rinse mouth and throat after use, # 1 each, 0 Refills, Maintenance, 02/12/21 16:56:00 EDT, Inhaler, [facility], Partial fill upon patient request if the prescription is for a schedule II opioid drug... Start Date: 02/12/21 Status: OrderedZOLMitriptan 2.5 mg oral tablet 1 tablet = 2.5 mg, By Mouth, Daily, PRN for migraine headache, may repeat dose after 2 hours up to amaximum of 1, # 6 tablet, 0 Refills, Maintenance, 03/07/21 14:53:00 EDT, Tablet, [facility], Partial fill upon patient request if the pres... 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
--- OUTSIDE RECORDS SUMMARY | 2022-07-11 20:31 | XMS_ITS | Continuity of Care Document ---
:1940 Author Organization [facility] Address [address] [place] [phone]- Care Team Providers Name Role Phone Bharat LOW, Christel Primary Care Physician Encounter [facility] [place] Date(s): 12/05/21 - 12/12/[address] [address]- Encounter Diagnosis Hyperosmolar hyperglycemic state (HHS) (Final) - 12/05/21 UTI (urinary tract infection), bacterial (Final) - 12/05/21 Seizure (Final) - 12/05/21 Headache disorder (Discharge Diagnosis) - 12/10/21 Discharge Disposition: A-Transfer SNF Attending Physician: Wilfredo Payne MD Admitting Physician: Joni Harley MD Referring Physician: Not on Staff, Referring MD Allergies, Adverse Reactions, Alerts Substance Reaction Severity [...] (IM) (oldterm)15 07/25/07 Given 1Admin Note: rite jkw4Cbqqa Note: vhktjqbkx8Okhpo Note: tgjnpnagx1Euyro Note: HQXMFIPTY3Mgvzk Note: kzmgijvzs2Iyxhq Note: zbplqumke2Pmaqnz Comment: lot [id number] Note: rite oyt8Oinmx/Late Reason: Other :10Location History: [facility] jvxrhbyk29Tggha Note: fqjrzpcdm07Wfmsz Note: vis 08/30/813Admin Note: vis 01/26/914Admin Note: tkcmphskp85Nhxks Note: administered at local pharmacy ([facility]) Medications acetaminophen 325 mg oral tablet 975 mg, Tablet, By Mouth, Every 6 hours for 30 days, PRN for Temperature, Fever, [place], 12/06/21 10:49:00 EST, Stop date 01/05/22 10:48:00 EDT Start Date: 12/06/21 Stop Date: 12/13/21 Status: DiscontinuedamLODIPine 10 mg oral tablet 10 mg, 1, tablet, By Mouth, Daily, DOSE INCREASE, # 30 tablet, Refills 5, Tot. Refills 5, Maintenance, 08/30/21 7:59:00 EST, Route to Pharmacy Electronically, [facility], Partial fill upon patient request if the prescription is for a sched... Start Date: 08/30/21 Stop Date: 02/26/22 Status: OrderedArtificial Tears preserved solution 2 drops, Eye, Right, 3 times a day, Until she can close her right eye, # 10 mL, 2 Refills, Maintenance, 08/04/21 14:35:00 EDT, [facility], Partial fill upon patient request if the prescription is for a schedule II opioid drug., 2 drops E... Start Date: 08/04/21 Status: Orderedatorvastatin 40 mg oral tablet 1 tablet = 40 mg, By Mouth, Daily, # 90 tablet, 0 Refills, Maintenance, 08/05/21 10:12:00 EDT, Tablet, [facility], Partial fill upon patient request if the prescription is for a schedule II opioid drug., 144.7, cm, 05/16/21 15:55:00 EDT, H... Start Date: 08/05/21 Status: Orderedclopidogrel 75 mg oral tablet 1, tablet, By Mouth, Daily, # 28 tablet, Refills 5, Tot. Refills 5, Maintenance, 09/28/21 10:07:00 EST, Route to Pharmacy Electronically, [facility], 144.7, cm, 08/15/21 16:06:00 EDT, Height, 52.2, kg, 05/08/21 3:48:00 EDT, Dry Weight Start Date: 09/28/21 Status: Orderedezetimibe 10 mg oral tablet 1 tablet, By Mouth, Daily, # 28 tablet, 5 Refills, [facility], 144.7, cm, 08/15/21 16:06:00 EDT, Height, 52.2, kg, 05/08/21 3:48:00 EDT, Dry Weight Start Date: 09/27/21 Status: Orderedfamotidine 20 mg oral tablet 1, tablet, By Mouth, Daily at bedtime, AVOID EATING AND DRINKING FOR 10 MINUTES AFTER EACH DOSE., # 28 tablet, Refills 2, Route to Pharmacy Electronically, [facility], 144.7, cm, 08/15/2116:06:00 EDT, Height, 52.2, kg, 05/08/21 3:48:00... Start Date: 09/27/21 Status: OrderedImitrex 50 mg oral tablet 1 tablet = 50 mg, By Mouth, Daily, PRN for migraine headache, may repeat dose after 2 hours up to a maximum of 2, # 9 tablet, 0 Refills, Maintenance, 05/07/21 15:01:00 EDT, Tablet, [facility], Partial fill upon patient request if the presc... Start Date: 05/07/21 Status: OrderedInsulin Glargine Inj 0.4 mL = 40 units, Subcutaneous Injection, Daily at bedtime, 0 Refills, Maintenance, 12/11/21 8:46:00 EST, Injection, Partial fill upon patient request if the prescription is for a schedule II opioid drug. Start Date: 12/11/21 Status: OrderedInsulin Lispro = 11 units, Subcutaneous Injection, 3 times a day before meals, 0 Refills, Maintenance, 12/11/21 8:47:00 EST, Injection, Partial fill upon patient request if the prescription is for a schedule II opioid drug. Start Date: 12/11/21 Status: OrderedKeppra 500 mg oral tablet 1 tablet = 500 mg, By Mouth, 2 times a day, 0 Refills, Maintenance, 12/11/21 8:47:00 EST, Tablet, Partial fill upon patient request if the prescription is for a schedule II opioid drug. Start Date: 12/11/21 Status: Orderedloratadine 10 mg oral tablet 10 mg, 1, tablet, By Mouth, Daily, # 30 tablet, Refills 5, Tot. Refills 5, Maintenance, 08/01/21 14:20:00 EDT, Route to Pharmacy Electronically, [facility], Partial fill upon patient request if the prescription is for a schedule II opioid... Start Date: 08/01/21 Status: OrderedLORazepam 0.5 mg oral tablet 1 tablet = 0.5 mg, By Mouth, 2 times a day, PRN as needed for anxiety, 0 Refills, Maintenance, 12/05/21 12:17:00 EST, Tablet, Partial fill upon patient request if the prescription is for a schedule II opioid drug. Start Date: 12/05/21 Status: Orderedmirtazapine 15 mg oral tablet See Instructions, 1/2 tablet By Mouth Daily at bedtime may increase to 1 tablet if needed, 0 Refills, Maintenance, 12/05/21 12:16:00 EST, Tablet, Partial fill upon patient request if the prescription is for a schedule II opioid drug. Start Date: 12/05/21 Status: OrderedProAir HFA 90 mcg/inh inhalation aerosol [...] II opioid drug. Start Date: 12/05/21 Status: Orderedzolpidem 5 mg oral tablet 1 tablet = 5 mg, By Mouth, Daily at bedtime, PRN as needed for insomnia, 0 Refills, Maintenance, 12/05/21 12:18:00 EST, Tablet, Partial fill upon patient request if the prescription is for a schedule II opioid drug. 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 REPORT STATUS : FINAL 12/10/2021TEST:Blood Culture, Second Order STATUS:Auth (Verified) BODY SITE: SOURCE:Blood COLLECTED DATE/TIME:12/05/21 6:50 AMBlood Culture, Second Order SPECIMEN DESCRIPTION : BLOOD R HAND SPECIAL REQUESTS : NONE CULTURE : NO GROWTH 5 DAYS. REPORT STATUS : FINAL 12/10/2021TEST:Urine Culture STATUS:Auth (Verified) BODY SITE: SOURCE:URINE COLLECTED DATE/TIME:12/05/21 5:55 AMUrine Culture SPECIMEN DESCRIPTION : URINE SPECIAL REQUESTS : NONE CULTURE : 10-50,000 COL/ML ENTEROCOCCUS FAECALIS This isolate was identified using Maldi-TOF system These AST results were performed on the XIPWIRE ID and AST system REPORT STATUS : FINAL 12/07/2021 ORGANISM 10-50,000 COL/ML ENTEROCOCCUS FAECALIS This isolate was identified using Maldi-TOF system METHOD MIN. INHIB. CONC. (MCG/ML) AMPICILLIN SUSCEPTIBLE CIPROFLOXACIN SUSCEPTIBLE NITROFURANTOIN SUSCEPTIBLE LEVOFLOXACIN SUSCEPTIBLE VANCOMYCIN SUSCEPTIBLE TETRACYCLINE RESISTANT GENTAMICIN SYNERGY ACTIVE IN SYNERGY STREPTOMYCIN SYNERGY ACTIVE IN SYNERGYRadiology Reports Exam Date Time Procedure Performing Provider Status 12/05/21 5:57 PM Chest Portable Jeremías LoriEstefany; Auth (Verified) Notes:(Chest Portable) Reason For Exam: Line PlacementRESULT: Chest Portable Chest Portable Reason: Line Placement; Clinical Question(s): Line Placement COMPARISON: 12/05/2021 at 0536 hours FINDINGS: Endotracheal tube tip is approximately 2.5-3 cm above the david. Left IJ central venous catheter tip at the cavoatrial junction. No change in the enteric tube course. No acute cardiopulmonary process IMPRESSION: No acute abnormality. Support lines and tubes are outlined above WSN: [id number] Ordering Physician: Ciaran Vasquez Dictated By: Jonny Breaux MD Dictated Date/Time: 12/05/21 6:07 pm Reviewed By: Jonny Breaux MD Signed By: Jonny Breaux MD Signed Date/Time: 12/05/21 6:07 pm Transcribed By: QING Transcribed Date/Time: 12/05/21 6:06 pm Exam Date Time Procedure Performing Provider Status 12/05/21 5:39 AM Chest Portable Leila Mims; Ruth tanner) Notes:(Chest Portable) Reason For Exam: Stroke;Other:RESULT: Chest Portable Chest Portable Reason: Stroke; Clinical Question(s): CHF COMPARISON: Chest radiograph 08/04/2021 FINDINGS: LINES AND TUBES: An endotracheal tube is in place with tip projecting 2.9 cm from the david. An enteric tube is in place and appears well positioned past the GE junction. LUNGS AND PLEURA: Mild bibasilar atelectasis. Normal pulmonary vascularity. No pleural effusion. No pneumothorax. HEART, MEDIASTINUM AND SHAYNA: Heart is normal in size. Normal upper mediastinal and hilar contour. BONES AND SOFT TISSUES: No acute abnormality. IMPRESSION: Intervally placed endotracheal and enteric tube appear well-positioned. No acute cardiopulmonary disease. I have personally reviewed the images and I agree with this report. WSN: [id number] Ordering Physician: America Toney Dictated By: Daphnie Vu DO Dictated Date/Time: 12/05/21 8:39 am Reviewed By: Markie Gillette MD, V Signed By: Markie Gillette MD, V Signed Date/Time: 12/05/21 8:44 am Transcribed By: QING Transcribed Date/Time: 12/05/21 8:37 am Vital Signs Most recent to oldest 1 2 3 [Reference Range]: Height 165 cm 165 cm 165 cm (12/12/21 3:38 PM) (12/11/21 3:13 AM) (12/10/21 11:49 PM) Weight 98.8 kg 58.1 kg 58.1 kg (12/05/21 3:00 PM) (12/05/21 8:56 AM) (12/05/21 8:2 6 AM) Oxygen Saturation [94-100 %] 97 % 95 % 95 % (12/12/21 3:38 PM) (12/12/21 11:26 AM) (12/12/21 8:23 AM) Pulse Rate [55-90 bpm] 64 bpm 76 bpm 81 bpm (12/12/21 3:38 PM) (12/12/21 11:26 AM) (12/12/21 8:23 AM) Body Mass Index [18.5-24.99] 21.34 21.34 (12/05/21 8:56 AM) (12/05/21 8:26 AM) Blood Pressure [90-138/55-84 134/50 mm Hg 138/54 mm Hg 139 /54 mm Hg mm Hg] (12/12/21 3:38 PM) (12/12/21 11:26 AM) *H* (12/12/21 8:23 AM) Respiratory Rate [16-30 20 br/min 16 br/min 20 br/mi n br/min] (12/12/21 3:38 PM) (12/12/21 12:20 PM) (12/12/21 11: AM) Temperature [96.8-100.4 DegF] 98.0 DegF 97.6 DegF 97 .3 DegF (12/12/21 3:38 PM) (12/12/21 11:26 AM) (12/12/21 8:23 AM) Liters per Minute 0 L/min 0 L/min 0 L/min (12/12/21 11:26 AM) (12/12/21 8:23 AM) (12/11/21 3:57 PM) Mode of Delivery (Oxygen) Room air Room air Room a ir (12/12/21 3:38 PM) (12/12/21 11:26 AM) (12/12/21 8:23 AM) Blood pressure sites Arm, right Arm, right Arm, right (12/12/21 3:38 PM) (12/12/21 8:23 AM) (12/12/21 4:12 A M) Temperature Route Oral Temporal Temporal (12/12/21 3:38 PM) (12/12/21 11:26 AM) (12/12/21 8:23 AM) Dry Weight 58.1 kg 58.1 kg (12/05/21 8:56 AM) (12/05/21 8:26 AM) Weight Obtained Via Bed scale Bed scale Bed scale (12/05/21 8:56 AM) (12/05/21 8:26 AM) (12/05/21 8:0 0 AM) Dry Weight Obtained Via Bed scale Bed scale (12/05/21 8:56 AM) (12/05/21 8:26 AM) Social History Social History Type Response Smoking Status Former smoker; Other: quit 1 994; entered on: 01/01/16 Sex
--- OUTSIDE RECORDS SUMMARY | 2022-07-11 20:31 | XMS_ITS | Continuity of Care Document ---
:1940 Author Organization [facility] Address Unavailable , Care Team Providers Name Role Phone Christel Nicholson MD Primary Care Physician Encounter [facility] Date(s): 01/28/22 - 02/27/22 [facility] Attending Physician: Asif Thompson Admitting Physician: Asif Thompson Referring Physician: Asif Thompson Allergies, Adverse Reactions, Alerts Substance Reaction Severity [...] (IM) (oldterm)15 07/25/07 Given 1Admin Note: rite aye5Wciwt Note: omcnxupoz0Bphli Note: dcoaehtqt1Quyng Note: VXCSFXRAR6Cwrkn Note: fdxpmxlqq2Mzull Note: ssygjwcyp8Pfezip Comment: lot [id number] Note: rite xnd4Eqfcd/Late Reason: Other :10Location History: [facility] skuijnmq68Wdhvq Note: fozlpykfj86Bcehq Note: vis 08/30/813Admin Note: vis 01/26/914Admin Note: cdxxntnkv07Edccr Note: administered at local pharmacy ([facility]) Medications [...] mL, 2 Refills, Maintenance, 08/04/21 14:35:00 EDT, [facility], Partial fill upon patient request [...] Refills, Maintenance, 02/08/22 14:47:00 EDT, Tablet, [facility], Partial fill upon patient request if the prescription is for a schedule II opioid drug., 145, cm, 01/15/22 14:16:00 EDT, Hei... Start Date: 02/08/22 Status: Orderedclopidogrel 75 mg oral tablet 1, tablet, By Mouth, Daily, # 28 tablet, Refills 5, Tot. Refills 5, Maintenance, 09/28/21 10:07:00 EST, Route to Pharmacy Electronically, [facility], 144.7, cm, 08/15/21 16:06:00 EDT, Height, [...] Required Details, [facility], cm, ... Start Date: [...] 02/27/22 14:46:00 E... Start Date: 02/27/22 Status: OrderedlevETIRAcetam 500 mg oral tablet 1 tablet = 500 mg, By Mouth, 2 times a day, # 60 tablet, 0 Refills, Maintenance, 02/07/22 9:28:00 EDT, Tablet, [facility], Partial fill upon patient request if the prescription is for aschedule II opioid drug., 145, cm, 01/15/22 14:16:00... Start Date: 02/07/22 Status: Orderedloratadine 10 mg oral tablet 1, tablet, By Mouth, Daily, # 28 tablet, Refills 2, Route to Pharmacy Electronically, [facility], 145, cm, 02/11/22 9:18:00 EDT, Height, [...] Dry Weight Start Date: 01/21/22 Status: OrderedPen [place], 31 G x 5 mm BD Ultra [...] stress Active disorder(Confirmed) Diabetes mellitus type 2(Confirmed) 2000 Active Dyslipidemia(Confirmed) Active Essential hypertension(Confirmed) 2000 Active Fracture dislocation of right shoulder Active joint(Confirmed) Gastro-esophageal reflux 2001 Active disease(Confirmed) Hepatitis C(Confirmed) 1998 Active Hiatal hernia(Confirmed) Active History of endovascular stent graft Active for abdominal aortic aneurysm (AAA)(Confirmed) Left carotid stenosis(Confirmed) Active Low back pain(Confirmed) 2000 Active Migraine(Confirmed) 1998 Active Mood disorder(Confirmed) 1998 Active Obesity(Confirmed) Active *[facility] [phone] [employer]DIG[employer] Active GONZALEZ(Confirmed) Seizure(Confirmed) Active Tubular adenoma(Confirmed) 2003 Active Social History Social History Type Response Smoking Status Former smoker; Other: quit 1 994; entered on: 01/01/16 Sex
--- OUTSIDE RECORDS SUMMARY | 2022-07-11 20:31 | XMS_ITS | Continuity of Care Document ---
:1940 Author Organization [facility] Address [address] [place] [address]- Care Team Providers Name Role Phone Bharat LOW, Christel Primary Care Physician Encounter [facility] [place] Date(s): 04/23/22 - 05/23/22 [facility] [address] [place] [address]- Allergies, Adverse Reactions, Alerts Substance Reaction Severity [...] (IM) (oldterm)15 07/25/07 Given 1Admin Note: rite uap0Mpyfh Note: ajyagvuhz6Unzen Note: lgtauvcvr3Mkerh Note: ZBKMYJYWK7Shade Note: pfzbrqmzt8Krpxs Note: vuncpzglh8Nfgmih Comment: lot [id number] Note: rite acf9Bkcxw/Late Reason: Other :10Location History: [facility] wgezubhs75Zjkpj Note: znmzfrzyg80Luwcq Note: vis 08/30/813Admin Note: vis 01/26/914Admin Note: dlyoghhqz46Tuyjj Note: administered at local pharmacy ([facility]) Medications [...] mL, 2 Refills, Maintenance, 08/04/21 14:35:00 EDT, [facility], Partial [...] Refills 0, [facility], cm, 04/04/22 9:06:00 EDT, Height, [...] Refills 1, Route to Pharmacy Electronically, [facility], 145, cm, 04/04/22 9:06:00 EDT, Height, [...] Required Details, Route to Pharmacy Electronically, [facility], 145, cm, 04/04/22 9:06:00 EDT,Height, 60, [...] Daily, # 28 tablet, 2 Refills, [facility], 145, cm, 03/16/22 23:36:00 EDT, Height, [...] Dry Weight Start Date: 01/21/22 Status: OrderedPen [place], 31 G x 5 mm BD Ultra [...] Mood disorder(Confirmed) 1997 Active Obesity(Confirmed) Active *[facility] [phone] 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
--- OUTSIDE RECORDS SUMMARY | 2022-07-11 20:31 | XMS_ITS | Continuity of Care Document ---
:1940 Author Organization [facility] Adult Address [address] [place] [address]- Care Team Providers Name Role Phone Bharat LOW, Christel Primary Care Physician Encounter [facility] [place] Date(s): 06/12/21 - 07/12/21 [facility] Adult [address] [place] [address]- Allergies, Adverse Reactions, Alerts Substance Reaction Severity [...] (IM) (oldterm)15 07/25/07 Given 1Admin Note: rite rry2Aginb Note: fnqjrnbtb3Nggqc Note: phzjkjsjt4Lzkwk Note: RXELBTPIC7Udvrn Note: wfvpnamcf3Bviwa Note: xlwfaieup2Wvxydy Comment: lot [id number] Note: rite cat5Ecduj/Late Reason: Other :10Location History: [facility] cucfdfdx26Heexh Note: fqqwwrahk20Xmnun Note: vis 08/30/813Admin Note: vis 01/26/914Admin Note: wghkwysnl51Vvmgz Note: administered at local pharmacy ([facility]) Medications [...] Refills 2, Route to Pharmacy Electronically, [facility], 144.7, cm, 05/16/2115:55:00 EDT, Height, 52.2, kg, [...] II opioid drug. Start Date: 10/11/20 Status: OrderedProAir HFA 90 mcg/inh inhalation aerosol 1 puffs = 90 mcg, Inhalation, 4 times a day, PRN as needed for wheezing, # 1 each, 0 Refills, Maintenance, 02/12/21 16:56:00 EDT, Inhaler, [facility], Partial fill upon patient [...] Active Mood disorder(Confirmed) 1998 Active Obesity(Confirmed) Active *[facility] [phone] [employer] INDIGO Active GONZALEZ(Confirmed) Tubular adenoma(Confirmed) 2003 Active 1treated w/ endovascular stent Social History Social History Type Response Smoking Status Former smoker; Other: quit 1 994; entered on: 01/01/16 Sex
[2022-07-11] MEDS: 0.9 % Sodium Chloride 1,000 ML 999 ML IVCONT (20:32)
--- OUTSIDE RECORDS SUMMARY | 2022-07-11 20:32 | XMS_ITS | Continuity of Care Document ---
:1940 Author Organization [facility] Adult Address [address] [place] [address]- Care Team Providers Name Role Phone Bharat LOW, Christel Primary Care Physician [phone] [place] [facility] [place] 07/21/20 - 08/20/20 [facility] Adult [address] [place] [address]- Allergies, Adverse Reactions, Alerts Substance Reaction Severity Status codeine Active fentanyl Active sulfonamides Active Lipitor Active Immunizations Given and Recorded Vaccine Date Status Refusal Reason influenza virus vaccine, inactivated 08/11/17 Recorded influenza [...] (IM) (oldterm)15 07/25/07 Given 1Admin Note: rite vnk3Rqdxf Note: mibilcyhi7Objqa Note: hymfqmops2Ebzlr Note: QZINFITVG3Ffows Note: nyjmrldww5Jkwns Note: mvghbtofh2Mmbgap Comment: lot [id number] Note: rite qxo6Nfqhz/Late Reason: Other :10Location History: [facility] ipevqjig44Qcwjy Note: ubkhjetom32Lczzi Note: vis 08/30/813Admin Note: vis 01/26/914Admin Note: onoryhwgb06Neema Note: administered at local pharmacy ([facility]) Medications Advair Diskus 250 mcg-50 mcg inhalation powder 1, inhalation, Inhalation, 2 times a day, Brand Name Only [place], # 1 each, Refills 5, Tot. Refills5, Maintenance, 03/16/20 15:59:00 EDT, Inhaler, Route to Pharmacy Electronically, [id number], [facility], 150.5,... Start Date: 03/16/20 Stop Date: 09/12/20 Status: Orderedalbuterol CFC free 90 mcg/inh inhalation aerosol 2, puffs, Inhalation, 4 times a day, PRN, # 18 Gm, Refills 5, Tot. Refills 5, Maintenance, 05/25/20 14:15:00 EDT, Aerosol, Route to Pharmacy Electronically, [id number], [facility] morris; [facility], 150.5, cm, 08/02/19 17:46:00 EDT... Start Date: 05/25/20 Status: Orderedalbuterol-ipratropium 3 mg-0.5 mg/3 ml inhalation solution 3 mL, Neb, Every 4 hours, PRN Wheezing/Shortness of Breath, # 90 mL, 3 Refills, Maintenance, 07/24/20 11:01:00 EDT, Inhalation Solution, [facility], 3 mL Neb Every 4 hours,PRN:Wheezing/Shortness of Breath, 150.5, cm, 08/02/19 17:46:00 EDT,... Start Date: 07/24/20 Status: OrderedAmbien 5 mg oral tablet See Instructions, PRN for sleep, 1/2 to 1 tablet daily, by mouth for sleep if needed., # 30 tablet, 1 Refills, Maintenance, 06/05/20 16:54:00 EDT, Tablet, [facility], 150.5, cm, 08/02/19 17:46:00 EDT, Height, 68.7, kg, 10/15/18 12:02:00 ES... Start Date: 06/05/20 Status: OrderedamLODIPine 5 mg oral tablet 1 tablet, By Mouth, Daily, # 30 tablet, 2 Refills, Maintenance, 07/05/20 16:07:00 EDT, [facility], 150.5, cm, 08/02/19 17:46:00 EDT, Height, 68.7, kg, 10/15/18 12:02:00 EST, Dry Weight Start Date: 07/05/20 Status: Orderedcitalopram 20 mg oral tablet 30 mg, 1.5, tablet, By Mouth, Daily, 30mg daily (one and a half tablets), # 45 tablet, Refills 3, Tot. Refills 3, Maintenance, 08/18/20 13:22:00 EST, Route to Pharmacy Electronically, [facility], 150.5, cm, 08/02/19 17:46:00 EDT, Height, 6... Start Date: 08/18/20 Stop Date: 12/16/20 Status: Orderedclopidogrel 75 mg oral tablet 75 mg, 1, tablet, By Mouth, Daily, # 30 tablet, Refills 5, Tot. Refills 5, Soft Stop, 07/05/20 16:09:00 EDT, Route to Pharmacy Electronically, [facility], 150.5, cm, 08/02/19 17:46:00 EDT, Height, 68.7, kg, 10/15/18 12:02:00 EST, Dry Weight Start Date: 07/05/20 Stop Date: 01/01/21 Status: OrderedFreestyle Lite Lancets See Instructions, # 100 each, Refills 11, Tot. Refills 11, Maintenance, use to check glucose tid dx e11.9, 11/13/17 13:44:51, Compound Start Date: 11/13/17 Status: OrderedFreestyle Lite Monitor See Instructions, # 1 each, Maintenance, use to test glucose tid dx e11.9, 05/02/17 13:14:22, Compound Start Date: 02/11/17 Status: OrderedFreestyle Lite Test Strips See Instructions, # 100 each, Refills 11, Tot. Refills 11, Maintenance, DMII E11.9 Testing TID, 04/05/20 10:32:00 EDT, Compound, 150.5, cm, 08/02/19 17:46:00 EDT, Height, 68.7, kg, 10/15/18 12:02:00 EST, Dry Weight Start Date: 04/05/20 Status: OrderedImitrex 100 mg oral tablet 1 tablet = 100 mg, By Mouth, Daily, PRN for migraine headache, may repeat dose after 2 hours up to amaximum of 2, # 9 tablet, 0 Refills, Maintenance, 08/02/19 17:52:32 EDT, Tablet Start Date: 08/02/19 Status: OrderedLantus Solostar Pen 100 units/mL subcutaneous solution = 45 units, Subcutaneous Injection, Daily at bedtime, # 15 mL, 5 Refills, Maintenance, 07/21/20 8:53:00 EDT, Injection, [facility], 150.5, cm, 08/02/19 17:46:00 EDT, Height, 68.7, kg, 10/15/18 12:02:00 EST, Dry Weight Start Date: 07/21/20 Status: OrderedLORazepam 1 mg oral tablet 1 tablet = 1 mg, By Mouth, 2 times a day, PRN for anxiety, for 30 days, Last refill from this office---pt is transferring care to another provider., # 60 tablet, 0 Refills, Acute 08/24/20 17:57:00 EST,07/25/20 17:57:00 EDT, Tablet, [facility] Start Date: 07/25/20 Stop Date: 08/24/20 Status: Orderedmeclizine 12.5 mg oral tablet 1 tablet = 12.5 mg, By Mouth, 3 times a day, PRN for dizziness, # 60 tablet, 0 Refills, Maintenance,02/09/16 10:09:16, Tablet Start Date: 02/09/16 Status: Orderedpantoprazole 40 mg oral delayed release tablet 1 tablet, By Mouth, Daily, # 90 tablet, 0 Refills, Maintenance, 08/03/20 11:40:00 EDT, 150.5, cm, 08/02/19 17:46:00 EDT, Height, 68.7, kg, 10/15/18 12:02:00 EST, Dry Weight Start Date: 08/03/20 Stop Date: 11/01/20 Status: OrderedPen [place], 31 G x 5 mm BD Ultra Fine III See Instructions, # 100 each, Refills 3, Tot. Refills 3, Maintenance, use to inject Lantus Solostar once daily dx e11.9, 10/01/19 9:53:00 EST, Compound, 150.5, cm, 08/02/19 17:46:00 EDT, Height, 68.7, kg, 10/15/18 12:02:00 EST, Dry Weight Start Date: 10/01/19 Status: OrderedZetia 10 mg oral tablet 1 tablet = 10 mg, By Mouth, Daily, # 28 tablet, 5 Refills, Maintenance, 08/18/20 13:22:00 EST, [facility], 150.5, cm, 08/02/19 17:46:00 EDT, Height, 68.7, kg, 10/15/18 12:02:00 EST, DryWeight Start Date: 08/18/20 Status: OrderedZofran 8 mg oral tablet 1 tablet = 8 mg, By Mouth, Every 8 hours, PRN Nausea & Vomiting, # 10 tablet, 0 Refills, Maintenance, 10/15/18 12:23:25 EST, Tablet Start Date: 10/15/18 Status: Ordered Problem List Condition Effective Dates Status Health Status Informant AAA - Abdominal aortic 1999 Active aneurysm(Confirmed)1 Allergic rhinitis(Confirmed) Active Asthma(Confirmed) Active COPD (chronic obstructive pulmonary Active disease)(Confirmed) Chronic post-traumatic stress Active disorder(Confirmed) Diabetes mellitus type 2(Confirmed) 1999 Active Dyslipidemia(Confirmed) Active Essential hypertension(Confirmed) 1999 Active Gastro-esophageal reflux 2000 Active disease(Confirmed) Hepatitis C(Confirmed) 1997 Active Low back pain(Confirmed) 2000 Active Migraine(Confirmed) 1997 Active Mood disorder(Confirmed) 1997 Active Obesity(Confirmed) Active *[facility] [phone] 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
--- OUTSIDE RECORDS SUMMARY | 2022-07-11 20:32 | XMS_ITS | Continuity of Care Document ---
:1940 Author Organization [facility] Adult Address [address] [place] [address]- Care Team Providers Name Role Phone Bharat LOW, Christel Primary Care Physician Encounter [facility] [place] Date(s): 04/18/22 - 05/18/22 [facility] Adult [address] [place] [address]- Allergies, Adverse Reactions, Alerts Substance Reaction Severity [...] 13-valent vaccine8 06/24/15 Given pneumococcal 13-valent vaccine9 3/17/15 Given Fluzone (oldterm)10 07/19/14 Recorded Zoster Vaccine Live 07/02/13 Recorded Zostavax (oldterm)11 06/09/12 Given tetanus-diphtheria toxoids (Td)12 11/16/09 Given Pneumococcal Poly (PPV23) (oldterm)13 11/16/09 Given influ virus vac, H1N1, inactive(oldterm)14 10/14/09 Given Influenza Inactive (IM) (oldterm)15 07/25/07 Given 1Admin Note: rite fcz5Fkuar Note: otnlaiglz8Hjfty Note: ftognyiui3Jyqih Note: YHWVBAPHI8Dqwbc Note: mdmjmvncg2Qgklj Note: syssgique7Mgbbwc Comment: lot [id number] Note: rite chc9Gwsxh/Late Reason: Other :10Location History: [facility] kcrdugsr50Todkd Note: ywiczornf41Qvrgt Note: vis 08/30/813Admin Note: vis 01/26/914Admin Note: sxsrsgfhh89Sincl Note: administered at local pharmacy ([facility]) Medications [...] mL, 2 Refills, Maintenance, 08/04/21 14:35:00 EDT, [facility], Partial fill upon patient request [...] Refills 0, Route to Pharmacy Electronically, [facility], 145, cm, 04/04/22 [...] Refills 1, Route to Pharmacy Electronically, [facility], 145, cm, 04/04/22 [...] Required Details, Route to Pharmacy Electronically, [facility], 145, cm, 04/04/22 9:06:00 EDT,Height, 60, [...] Daily, # 28 tablet, 2 [facility], cm, 03/16/22 23:36:00 EDT, Height, 60, [...] Dry Weight Start Date: 01/21/22 Status: OrderedPen [place], 31 G x 5 mm BD Ultra [...] Mood disorder(Confirmed) 1997 Active Obesity(Confirmed) Active *[facility] [phone] 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
--- OUTSIDE RECORDS SUMMARY | 2022-07-11 20:32 | XMS_ITS | Continuity of Care Document ---
:1940 Author Organization [facility] Adult Address [address] [place] [address]- Care Team Providers Name Role Phone Bharat LOW, Christel Primary Care Physician [phone] Encounter [facility] Date(s): 01/17/22 - 02/16/22 [facility] Adult [address] [place] [address]- Allergies, Adverse Reactions, Alerts Substance Reaction Severity [...] (IM) (oldterm)15 07/25/07 Given 1Admin Note: rite zgb4Tzuaw Note: whpwxdzls8Fnjjn Note: xuhkwmaqp3Wnqlk Note: PMVVPHEBV5Lqikz Note: wtxshsgzk1Xmsbx Note: vzagimple4Gwojkg Comment: lot [id number] Note: riteduardo rqt3Tbwnk/Late Reason: Other :10Location History: [facility] lloidynf85Sjnao Note: yimqcdqac74Qmkcc Note: vis 08/30/813Admin Note: vis 01/26/914Admin Note: ssfailock14Qurrw Note: administered at local pharmacy ([facility]) Medications [...] mL, 2 Refills, Maintenance, 08/04/21 14:35:00 EDT, [facility], Partial fill upon patient [...] II opioid drug. Start Date: 01/15/22 Status: Orderedezetimibe 10 mg oral tablet 1 tablet, By Mouth, Daily, # 28 tablet, 5 Refills, [facility], 144.7, cm, 08/15/21 16:06:00 EDT, Height, 52.2, kg, 05/08/21 3:48:00 EDT, Dry Weight Start Date: 09/27/21 Status: Orderedfamotidine 20 mg oral tablet See Instructions, TAKE 1 TABLET BY MOUTH AT BEDTIME. AVOID EATING AND DRINKING FOR 10 MINUTES AFTER EACH DOSE., # 28 tablet, Refills 2, Instructions Replace Required Details, Route to Pharmacy Electronically, [facility], 145, [place], ... Start Date: 01/23/22 Status: OrderedImitrex 50 mg oral tablet 1 [...] Daily, # 10 mL, 5 Refills, Maintenance, 01/17/22 13:50:00 EDT, Injection, [facility], Partial fill upon patient request if the prescription is for a schedule II opioid drug., 145, cm, 01/15/22 14:16:00 E... Start Date: 01/17/22 Status: OrderedlevETIRAcetam 500 mg oral tablet 1 tablet = 500 mg, By Mouth, 2 times a day, # 60 tablet, 0 Refills, Maintenance, 02/07/22 9:28:00 EDT, Tablet, [facility], Partial fill upon patient request if the prescription is for aschedule II opioid drug., 145, cm, 01/15/22 14:16:00... Start Date: 02/07/22 Status: Orderedloratadine 10 mg oral tablet 10 [...] Weight Start Date: 01/21/22 Status: OrderedOne Touch UltraSoft Lancets See Instructions, # 100 each, Refills 5, Tot. Refills 5, Maintenance, USE TO CHECK GLUCOSE TID DX E11.9, 01/21/22 10:45:00 EDT, Supply, 145, cm, 01/15/22 14:16:00 EDT, Height, 62.5, kg, 12/23/21 5:49:00 EDT, Dry Weight Start Date: 01/21/22 Status: OrderedoxyCODONE 5 mg oral tablet 5 mg, 1, tablet, By Mouth, Every 4 hours, PRN, Refills 0, Tot. Refills 0, Maintenance, Pain , Moderate, 01/15/22 14:52:00 EDT, Partial fill upon patient request if the prescription is for a schedule IIopioid drug. Start Date: 01/15/22 Status: OrderedOxyCONTIN 10 mg oral tablet, extended release 10 mg, 1, tablet, By Mouth, Every 12 hours, Refills 0, Tot. Refills 0, Maintenance, 01/15/22 14:51:00 EDT, Partial fill upon patient request if the prescription is for a schedule II opioid drug. 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
--- OUTSIDE RECORDS SUMMARY | 2022-07-11 20:32 | XMS_ITS | Continuity of Care Document ---
:1940 Author Organization [facility] Address [address] [place] [address]- Care Team Providers Name Role Phone Christel Nicholson MD Primary Care Physician [phone] Encounter [facility] [place] [facility] R [id number] Date(s): 07/13/21 - 08/22/[address] [address]- Attending Physician: Christel Nicholson MD Admitting Physician: Christel Nicholson MD Referring Physician: Christel Nicholson MD Allergies, Adverse Reactions, Alerts Substance Reaction Severity Status codeine Active fentanyl Active sulfonamides Active Lipitor Active Tylenol1 Active 1Pt states PCP advises her not to take it due to current medical issues. Immunizations Given and Recorded Vaccine Date Status Refusal Reason influenza virus vaccine, inactivated 06/24/21 Recorded influenza [...] (IM) (oldterm)15 07/25/07 Given 1Admin Note: rite bsc3Pebgi Note: ypumfjggo6Ibwgt Note: gtpbnhaey3Lcqhr Note: OSZNVULRP9Dufih Note: durgvcest1Nlfqo Note: crlwzyaon1Heanhd Comment: lot [id number] Note: rite jhj9Tlbsq/Late Reason: Other :10Location History: [facility] wwpqlonf04Dbwdd Note: vwcytbwav60Qugvn Note: vis 08/30/813Admin Note: vis 01/26/914Admin Note: mdqytwkha92Hmrjr Note: administered at local pharmacy ([facility]) Medications amLODIPine 10 mg oral tablet 10 mg, 1, tablet, By Mouth, Daily, DOSE INCREASE, # 30 tablet, Refills 5, Tot. Refills 5, Maintenance, 03/14/21 16:39:00 EDT, Route to Pharmacy Electronically, [facility], Partial fill upon patient request if the prescription is for a sche... Start Date: 03/14/21 Stop Date: 09/10/21 Status: OrderedArtificial Tears preserved solution 2 drops, Eye, Right, 3 times a day, Until she can close her right eye, # 10 mL, 2 Refills, Maintenance, 08/04/21 14:35:00 EDT, [facility], Partial fill upon patient request if the prescription is for a schedule II opioid drug., 2 drops E... Start Date: 08/04/21 Status: Orderedatorvastatin 40 mg oral tablet 1 tablet = 40 mg, By Mouth, Daily, # 90 tablet, 0 Refills, Maintenance, 08/05/21 10:12:00 EDT, Tablet, [facility], Partial fill [...] 5 Refills, Maintenance, 04/12/21 9:15:00 EDT, [facility], PT OVERDUE FOR BLOOD WORK, 162, cm, 03/16/21 8:09:00 EDT, Height, 67.1, kg, 10/11/20 23:00:00 EST, Dry Weight Start Date: 04/12/21 Status: Orderedfamotidine 20 mg oral tablet 1, tablet, By Mouth, Daily at bedtime, AVOID EATING AND DRINKING FOR 10 MINUTES AFTER EACH DOSE., # 28 tablet, Refills 2, Route to Pharmacy Electronically, [facility], 144.7, cm, 05/16/2115:55:00 EDT, Height, 52.2, kg, [...] if the presc... Start Date: 05/07/21 Status: OrderedAyeus Solostar Pen 100 units/mL subcutaneous solution = 47 units, Subcutaneous Injection, Daily at bedtime, # 10 mL, 1 Refills, Maintenance, 08/15/21 16:12:00 EDT, Injection, [facility], Partial fill upon patient request if the prescription is for a schedule II opioid drug., 144.7, cm, ... Start Date: 08/15/21 Status: Orderedloratadine 10 mg oral tablet 10 [...] II opioid drug.,... 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
--- OUTSIDE RECORDS SUMMARY | 2022-07-11 20:32 | XMS_ITS | Continuity of Care Document ---
:1940 Author Organization [facility] [address] [place] [address]- Care Team Providers Name Role Phone Bharat LOW, Christel Primary Care Physician [place] [facility] [place] Date(s): 01/10/22 - 02/09/22 [facility] [address] [place] [address] Drive [address] [place], [place] [address] Allergies, Adverse Reactions, Alerts Substance Reaction Severity [...] (IM) (oldterm)15 07/25/07 Given 1Admin Note: rite sio0Aagew Note: xrsqxpfnm8Zusgm Note: qbobolwzv2Otmdm Note: IBEKSRAPU1Uqoeg Note: yizykooph3Cudjf Note: nwzlomhqh6Xbivqb Comment: lot [id number] Note: riteduardo vpi6Ktupn/Late Reason: Other :10Location History: [facility] egkcwmhx95Lblxq Note: fpplawcce93Ncjfs Note: vis 08/30/813Admin Note: vis 01/26/914Admin Note: nzkeqxxdy08Yqnlf Note: administered at local pharmacy ([facility]) Medications [...] mL, 2 Refills, Maintenance, 08/04/21 14:35:00 EDT, [facility], Partial fill upon patient request [...] Required Details, Route to Pharmacy Electronically, [facility], [address], [place], ... Start Date: 01/23/22 [...] opioid drug. 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
--- OUTSIDE RECORDS SUMMARY | 2022-07-11 20:32 | XMS_ITS | Continuity of Care Document ---
:1940 Author Organization [facility] Adult Address [address] [place] [address]- Care Team Providers Name Role Phone Christel Nicholson MD Primary Care Physician [place] [facility] [place] 08/[place]/21 [facility] [address] [place] [address]- Encounter Diagnosis Uncontrolled type 2 diabetes mellitus (Discharge Diagnosis) - 08/15/21 Essential hypertension (Discharge Diagnosis) - 08/15/21 Mood disorder (Discharge Diagnosis) - 08/15/21 Left carotid stenosis (Discharge Diagnosis) - 08/15/21 Askew palsy (Discharge Diagnosis) - 08/15/21 Migraine (Discharge Diagnosis) - 08/15/21 Attending Physician: Christel Nicholson MD Allergies, Adverse Reactions, [...] (IM) (oldterm)15 07/25/07 Given 1Admin Note: rite otn4Rrpup Note: pxbszpeyx0Qpvac Note: nswdpjjyc7Adoqf Note: CYJTDXYXQ6Uauto Note: orcpxoznm1Hsfgr Note: ufjjgqyml0Mmjeas Comment: lot [id number] Note: rite ozp7Nkgxr/Late Reason: Other :10Location History: [facility] ofmysedp17Tznmh Note: nvmxorgaw95Wkpzs Note: vis 08/30/813Admin Note: vis 01/26/914Admin Note: wfrjoqbjb28Bpchg Note: administered at local pharmacy ([facility]) Medications [...] mL, 2 Refills, Maintenance, 08/04/21 14:35:00 EDT, [facility], Partial fill upon patient [...] 13:25:00 EDT, Route to Pharmacy Electronically, [facility], 162, cm, 03/16/21 8:09:00 EDT, Height, [...] Refills 2, Route to Pharmacy Electronically, [facility], 144.7, cm, 05/16/2115:55:00 EDT, Height, 52.2, [...] Mood disorder(Confirmed) 1997 Active Obesity(Confirmed) Active *[facility] [phone] 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 GONZALEZ(Confirmed) Tubular adenoma(Confirmed) 2003 Active 1treated w/ endovascular stent Diagnosis Diagnosis Type Effective Dates Health Clinical Infor mant Status Service Left carotid Discharge 08/15/21 stenosis Diagnosis Askew palsy Discharge 08/15/21 Diagnosis Essential Discharge 08/15/21 hypertension Diagnosis Mood disorder Discharge 08/15/21 Diagnosis Uncontrolled type 2 Discharge 08/15/21 diabetes mellitus Diagnosis Migraine Discharge 08/15/21 Diagnosis Vital Signs Most recent to oldest 1 2 3 [Reference Range]: Height 144.7 cm 144.7 cm 144.7 cm (08/15/21 4:06 PM) (08/15/21 3:49 PM) (08/15/21 3:3 0 PM) Weight 63.3 kg (08/15/21 3:30 PM) Oxygen Saturation [94-100 %] 98 % (08/15/21 3:30 PM) Pulse Rate [55-90 bpm] 82 bpm (08/15/21 3:30 PM) Body Mass Index [18.5-24.99] 30.23 *>HHI* (08/15/21 3:30 PM) Blood Pressure [90-138/55-84 mm 146/62 mm Hg 143/64 mm Hg 160/64 mm Hg Hg] *H* *H* *H* (08/15/21 4:06 PM) (08/15/21 3:49 PM) (08/15/21 3:3 0 PM) Temperature [96.8-100.4 DegF] 99.4 DegF (08/15/21 3:30 PM) Mode of Delivery (Oxygen) Room air (08/15/21 3:30 PM) Blood pressure sites Arm, left Arm, left (08/15/21 3:49 PM) (08/15/21 3:30 PM) Temperature Route Oral (08/15/21 3:30 PM) Social History Social History Type Response Smoking Status Former smoker; Other: quit 1 994; entered on: 01/01/16 Sex
--- OUTSIDE RECORDS SUMMARY | 2022-07-11 20:32 | XMS_ITS | Continuity of Care Document ---
:1940 Author Organization [facility] Address [address] [place] [address]- Care Team Providers Name Role Phone Bharat LOW, Hope Primary Care Physician [place] [facility] [place]20 [place] 03/03/20 [facility] [address] [place] [address]- [facility] Attending Physician: Admtr, Ar8 Allergies, Adverse Reactions, Alerts Substance Reaction Severity [...] (IM) (oldterm)15 07/25/07 Given 1Admin Note: rite kvu6Agfvu Note: mxjzhjqwa8Oubgi Note: gtaqehpbi9Vyfvm Note: RGMTGEJEK2Qqmll Note: kemmwhtmz4Lwsgc Note: onakmoakg9Amhnvm Comment: lot [id number] Note: rite coo2Ajhsa/Late Reason: Other :10Location History: [address] hnrfdtxm62Gogvs Note: qzyrdezeq65Cnwcu Note: vis 08/30/813Admin Note: vis 01/26/914Admin Note: djihkvjvp69Keiah Note: administered at local pharmacy ([facility]) Medications Abilify 10 mg oral tablet 10 mg, 1, tablet, By Mouth, Daily, for 30 days, # 30 tablet, Refills 3, Tot. Refills 3, Hard Stop 05/09/20 12:41:00 EDT, 01/10/20 12:41:00 EDT, Route to Pharmacy Electronically, [facility], 150.5, cm, 08/02/19 17:46:00 EDT, Height, 68.7, k... Start Date: 01/10/20 Stop Date: 05/09/20 Status: OrderedAbilify 10 mg oral tablet 10 mg, 1, tablet, By Mouth, Daily, # 30 tablet, Refills 3, Tot. Refills 3, Maintenance, 01/10/20 12:41:00 EDT, Route to Pharmacy Electronically, [facility], 150.5, cm, 08/02/19 17:46:00EDT, Height, 68.7, kg, 10/15/18 12:02:00 EST, Dry Weight Start Date: 01/10/20 Stop Date: 05/09/20 Status: OrderedAdvair Diskus 250 mcg-50 mcg inhalation powder 1, inhalation, Inhalation, 2 times a day, Brand Name Only [place], # 1 each, Refills 5, Tot. Refills5, Maintenance, 09/30/19 15:52:00 EST, Inhaler, Route to Pharmacy Electronically, [id number], [facility], 150.5,... Start Date: 09/30/19 Stop Date: 03/28/20 Status: Orderedalbuterol CFC free 90 mcg/inh inhalation aerosol 2, puffs, Inhalation, 4 times a day, PRN, # 18 Gm, Refills 5, Tot. Refills 5, Maintenance, 08/26/19 13:32:57 EST, Aerosol, Route to Pharmacy Electronically, [id number], [facility]; [facility] Start Date: 08/26/19 Status: Orderedalbuterol-ipratropium 3 mg-0.5 mg/3 ml inhalation solution 3 mL, Neb, Every 4 hours, PRN Wheezing/Shortness of Breath, # 90 mL, 3 Refills, Maintenance, 09/23/19 9:53:29 EST, Inhalation Solution, 3 mL Neb Every 4 hours,PRN:Wheezing/Shortness of Breath, 150.5, cm, 08/02/19 17:46:12 EDT, Height, 68.7, kg, ... Start Date: 09/23/19 Status: OrderedamLODIPine 5 mg oral tablet 1 tablet, By Mouth, Daily, # 30 tablet, 5 Refills, Maintenance, 09/30/19 16:14:00 EST, [facility], 150.5, cm, 08/02/19 17:46:00 EDT, Height, 68.7, kg, 10/15/18 12:02:00 EST, Dry Weight Start Date: 09/30/19 Status: Orderedcitalopram 20 mg oral tablet 30 mg, 1.5, tablet, By Mouth, Daily, 30mg daily (one and a half tablets), # 45 tablet, Refills 3, Tot. Refills 3, Maintenance, 01/10/20 12:42:00 EDT, Route to Pharmacy Electronically, [facility], 150.5, cm, 08/02/19 17:46:00 EDT, Height, 6... Start Date: 01/10/20 Stop Date: 05/09/20 Status: Orderedclopidogrel 75 mg oral tablet 75 mg, 1, tablet, By Mouth, Daily, # 30 tablet, Refills 5, Tot. Refills 5, Soft Stop, 01/20/20 15:05:00 EDT, Route to Pharmacy Electronically, [facility], 150.5, cm, 08/02/19 17:46:00 EDT, Height, 68.7, kg, 10/15/18 12:02:00 EST, Dry Weight Start Date: 01/20/20 Stop Date: 07/18/20 Status: OrderedFreestyle Lite Lancets See Instructions, # 100 each, Refills 11, Tot. Refills 11, Maintenance, use to check glucose tid dx e11.9, 11/13/17 13:44:51, Compound Start Date: 11/13/17 Status: OrderedFreestyle Lite Monitor See Instructions, # 1 each, Maintenance, use to test glucose tid dx e11.9, 02/11/17 13:14:22, Compound Start Date: 02/11/17 Status: OrderedFreestyle Lite Test Strips See Instructions, # 100 each, Refills 11, Tot. Refills 11, Maintenance, use to test glucose tid dx e11.9, 03/17/19 12:46:05 EDT, Compound Start Date: 03/17/19 Status: OrderedImitrex 100 mg oral tablet 1 [...] bedtime, # 40 mL, 5 Refills, Maintenance, 04/19/19 11:21:06 EDT, Injection Start Date: 04/19/19 Status: OrderedLORazepam 1 mg oral tablet 1 tablet = 1 mg, By Mouth, 2 times a day, PRN for anxiety, for 30 days, Please fax to [facility] , # 53 tablet, 3 Refills, Acute 04/06/20 10:42:00 EDT, 12/08/19 10:42:00 EST, Tablet,[facility], Please cancel any other l... Start Date: 12/08/19 Stop Date: 04/06/20 Status: Orderedmeclizine 12.5 mg oral tablet 1 tablet = 12.5 mg, By Mouth, 3 times a day, PRN for dizziness, # 60 tablet, 0 Refills, Maintenance,02/09/16 10:09:16, Tablet Start Date: 02/09/16 Status: Orderedpantoprazole 40 mg oral delayed release tablet 1 tablet = 40 mg, By Mouth, Daily, # 30 tablet, 2 Refills, Soft Stop, 01/20/20 14:59:00 EDT, 150.5, cm, 08/02/19 17:46:00 EDT, Height, 68.7, kg, 10/15/18 12:02:00 EST, Dry Weight Start Date: 01/20/20 Stop Date: 04/19/20 Status: OrderedPen [place], 31 G x 5 mm BD Ultra [...] Daily, # 28 tablet, 5 Refills, Maintenance, 09/30/19 15:52:00 EST, [facility], 150.5, cm, 08/02/19 17:46:00 EDT, Height, 68.7, kg, 10/15/18 12:02:00 EST, DryWeight Start Date: 09/30/19 Status: OrderedZofran 8 mg oral tablet 1 [...] Gastro-esophageal reflux 2000 Active disease(Confirmed) Hepatitis C(Confirmed) 1998 Active Low back pain(Confirmed) 2000 Active Migraine(Confirmed) 1997 Active Mood disorder(Confirmed) 1998 Active Obesity(Confirmed) Active *[facility] [phone] 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
--- OUTSIDE RECORDS SUMMARY | 2022-07-11 20:32 | XMS_ITS | Continuity of Care Document ---
:1940 Author Organization [facility] Adult Address [address] [place] [address]- Care Team Providers Name Role Phone Bharat LOW, Christel Primary Care Physician [phone] Encounter [facility] [place] Date(s): 05/02/22 - 06/01/22 [facility] [address] [place] [address]- Allergies, Adverse Reactions, Alerts Substance Reaction Severity [...] (IM) (oldterm)15 07/25/07 Given 1Admin Note: rite ape1Rkzaf Note: rgszcgett3Hzkah Note: utzufgris4Ydvis Note: MSGLRYBSZ6Tdjvz Note: kjjsnllzg3Bfajy Note: wixmteluz8Oqsyrr Comment: lot [id number] Note: rite rwu8Twejw/Late Reason: Other :10Location History: [facility] mpsyxfil61Ulzqq Note: gflwemozp92Fsdnt Note: vis 08/30/813Admin Note: vis 01/26/914Admin Note: ugkrqdrms57Eytva Note: administered at local pharmacy ([facility]) Medications [...] mL, 2 Refills, Maintenance, 08/04/21 14:35:00 EDT, [facility], Partial fill upon patient request if [...] Refills 0, [facility], cm, 04/04/22 9:06:00 EDT, Height, 60, kg, 03/16/22 23:36:00 EDT, Dry Weight Start Date: 05/30/22 Status: Ordereddocusate-senna 50 mg-8.6 mg oral capsule [...] Refills 1, Route to Pharmacy Electronically, [facility], 145, cm, 04/04/22 9:06:00 EDT, Height, [...] Required Details, Route to Pharmacy Electronically, [facility], 145, cm, 04/04/22 9:06:00 EDT,Height, 60, [...] Daily, # 28 tablet, 2 Refills, 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
--- OUTSIDE RECORDS SUMMARY | 2022-07-11 20:32 | XMS_ITS | Continuity of Care Document ---
:1940 Author Organization [facility] Address [address] [place] [address]- Care Team Providers Name Role Phone Bharat LOW, Christel Primary Care Physician [phone] Encounter [facility] [place] Date(s): 09/26/20 - 12/13/[address] [address] Attending Physician: Christel Nicholson MD Admitting Physician: Christel Nicholson MD Referring Physician: Christel Nicholson MD Allergies, Adverse Reactions, Alerts Substance Reaction Severity Status codeine Active fentanyl Active sulfonamides Active Lipitor Active Immunizations Given and Recorded Vaccine Date Status Refusal Reason Influenza Virus Vaccine (oldterm) 07/05/20 Recorded influenza [...] (IM) (oldterm)15 07/25/07 Given 1Admin Note: rite zdt6Nplav Note: hzqodvsmf1Xhvro Note: xsmepwrov1Tazwg Note: QTRTBOUMS5Btktz Note: cmucnhubz1Nwmro Note: equizzosy2Ptorok Comment: lot [id number] Note: fredy mms1Wnibj/Late Reason: Other :10Location History: [address] cxrsrigq83Izgzf Note: kqtzuylyr10Gejqa Note: vis 08/30/813Admin Note: vis 01/26/914Admin Note: jynbjaywo02Ssure Note: administered at local pharmacy ([facility]) Medications amLODIPine 5 mg oral tablet 1 tablet = 5 mg, By Mouth, Daily, # 30 tablet, 0 Refills, Maintenance, 10/11/20 3:33:00 EST, Tablet,Partial fill upon patient request if the prescription is for a schedule II opioid drug. Start Date: 10/11/20 Status: OrderedARIPiprazole 10 mg oral tablet 5 mg, 0.5, tablet, By Mouth, Daily, # 30 tablet, Refills 0, Maintenance, 10/11/20 3:34:00 EST, Partial fill upon patient request if the prescription is for a schedule II opioid drug. Start Date: 10/11/20 Status: Orderedcitalopram 20 mg oral tablet 1 tablet = 20 mg, By Mouth, Daily, # 30 tablet, 0 Refills, Maintenance, 10/11/20 3:34:00 EST, Tablet, Partial fill upon patient request if the prescription is for a schedule II opioid drug. Start Date: 10/11/20 Status: Orderedclopidogrel 75 mg oral tablet 75 mg, 1, tablet, By Mouth, Daily, # 30 tablet, Refills 0, Maintenance, 10/11/20 3:33:00 EST, Partial fill upon patient request if the prescription is for a schedule II opioid drug. Start Date: 10/11/20 Status: Orderedezetimibe 10 mg oral tablet 1 tablet = 10 mg, By Mouth, Daily, # 30 tablet, 0 Refills, Maintenance, 10/11/20 3:33:00 EST, Tablet, Partial fill upon patient request if the prescription is for a schedule II opioid drug. Start Date: 10/11/20 Status: Orderedfamotidine 20 mg oral tablet 20 mg, 1, tablet, By Mouth, Daily at bedtime, # 30 tablet, Refills 0, Maintenance, 10/11/20 3:33:00 EST, Partial fill upon patient request if the prescription is for a schedule II opioid drug. Start Date: 10/11/20 Status: OrderedLantus Solostar Pen 100 units/mL subcutaneous solution = 45 units, Subcutaneous Injection, Daily at bedtime, # 10 mL, 0 Refills, Maintenance, 10/11/20 3:32:00 EST, Solution, Partial fill upon patient request if the prescription is for a schedule II opioid drug. Start Date: 10/11/20 Status: OrderedLORazepam 0.5 mg oral tablet 1 tablet = 0.5 mg, By Mouth, 2 times a day, PRN Anxiety, 0 Refills, Maintenance, 10/17/20 10:35:00 EST, Tablet, Partial fill upon patient request if the prescription is for a schedule II opioid drug. Start Date: 10/17/20 Status: Orderedpantoprazole 40 mg oral delayed release tablet 1 tablet = 40 mg, By Mouth, Daily, # 30 tablet, 0 Refills, Maintenance, 10/11/20 3:34:00 EST, EC Tablet Start Date: 10/11/20 Status: OrderedPen [place], 31 G x 5 mm BD Ultra Fine III See Instructions, # 100 each, Refills 3, Tot. Refills 3, Maintenance, use to inject Lantus Solostar once daily dx e11.9, 11/03/20 14:10:00 EST, Compound, 162, cm, 10/25/20 8:09:00 EST, Height, 67.1, kg, 10/11/20 23:00:00 EST, Dry Weight Start Date: 11/03/20 Status: OrderedProAir HFA 90 mcg/inh inhalation aerosol 1 puffs, Inhalation, 4 times a day, PRN as needed for wheezing, # 18 Gm, 0 Refills, Maintenance, 10/11/20 3:33:00 EST, Aerosol, Partial fill upon patient request if the prescription is for a schedule II opioid drug. Start Date: 10/11/20 Status: OrderedWixela Inhub 250 mcg-50 mcg inhalation powder 1 inhalation, Inhalation, 2 times a day, rinse mouth and throat after use, 0 Refills, Maintenance, 10/17/20 10:41:00 EST, Powder, Partial fill upon patient request if the prescription is for a scheduleII opioid drug. 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
--- OUTSIDE RECORDS SUMMARY | 2022-07-11 20:32 | XMS_ITS | Continuity of Care Document ---
:1940 Author Organization [facility] Address [address] [place] [address]- Care Team Providers Name Role Phone Bharat LOW, Christel Primary Care Physician [phone] [place] [facility] [place] [id number] Date(s): 08/09/21 - 10/12/21 [facility] [address] [place] [address]- Attending Physician: Karyn Tobias MD Admitting Physician: Karyn Tobias MD Referring Physician: Christel Nicholson MD Allergies, [...] (IM) (oldterm)15 07/25/07 Given 1Admin Note: rite pkg5Mfeuk Note: syvnqfnko8Nrwmv Note: tjalhanno1Ngylu Note: HJGSEWENQ1Jlzfz Note: lsonaqoca4Ustts Note: qhsasxvgj3Sylfyf Comment: lot [id number] Note: rite ghh8Frdcz/Late Reason: Other :10Location History: [facility] swnkejml76Pxtdn Note: xayahpcur21Waocw Note: vis 08/30/813Admin Note: vis 01/26/914Admin Note: kmuzyswrt56Vqslq Note: administered at local pharmacy ([facility]) Medications [...] mL, 2 Refills, Maintenance, 08/04/21 14:35:00 EDT, [facility], Partial fill upon patient [...] Daily, # 28 tablet, 5 Refills, [facility], 144.7, cm, 08/15/21 16:06:00 EDT, Height, 52.2, kg, 05/08/21 3:48:00 EDT, Dry Weight Start Date: 09/27/21 Status: Orderedfamotidine 20 mg oral tablet 1, tablet, By Mouth, Daily at bedtime, AVOID EATING AND DRINKING FOR 10 MINUTES AFTER EACH DOSE., # 28 tablet, Refills 2, Route to Pharmacy Electronically, [facility], 144.7, cm, 08/15/2116:06:00 EDT, Height, 52.2, kg, 05/08/21 3:48:00... 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
--- OUTSIDE RECORDS SUMMARY | 2022-07-11 20:32 | XMS_ITS | Continuity of Care Document ---
:1940 Author Organization [facility] Address [address] [place] [address]- Care Team Providers Name Role Phone Christel Nicholson MD Primary Care Physician [id number] Date(s): 12/24/21 - 01/31/22 [facility] [address] [place] [address]- Attending Physician: Christel Nicholson MD Allergies, Adverse [...] (IM) (oldterm)15 07/25/07 Given 1Admin Note: rite gfp2Ljjad Note: infumlqgo7Sywqk Note: iqxmiawmm2Tqnqv Note: TTMNNDOJA9Ifhvy Note: erjlclpxv6Qojhs Note: ztkaohjqf5Frguma Comment: lot [id number] Note: rite ohn3Scgfw/Late Reason: Other :10Location History: [facility] mmvtnhnx96Gdruz Note: fgxqnjwyg85Rudmf Note: vis 08/30/813Admin Note: vis 01/26/914Admin Note: tbwojudll77Genuj Note: administered at local pharmacy ([facility]) Medications [...] mL, 2 Refills, Maintenance, 08/04/21 14:35:00 EDT, [facility], Partial fill upon patient [...] Daily, # 28 tablet, 5 Refills, [facility], 144.7, cm, 08/15/21 16:06:00 EDT, Height, 52.2, kg, 05/08/21 3:48:00 EDT, Dry Weight Start Date: 09/27/21 Status: Orderedfamotidine 20 mg oral tablet See Instructions, TAKE 1 TABLET BY MOUTH AT BEDTIME. AVOID EATING AND DRINKING FOR 10 MINUTES AFTER EACH DOSE., # 28 tablet, Refills 2, Instructions Replace Required Details, Route to Pharmacy Electronically, [facility], 145, cm, ... Start Date: 01/23/22 Status: OrderedImitrex 50 mg oral tablet 1 tablet = 50 mg, By Mouth, Daily, PRN for migraine headache, may repeat dose after 2 hours up to a maximum of 2, # 9 tablet, 0 Refills, Maintenance, 05/07/21 15:01:00 EDT, Tablet, [facility], Partial fill upon patient request if the presc... Start Date: 05/07/21 Status: OrderedInsulin Glargine Inj = 40 units, Subcutaneous Injection, Daily at bedtime, 0 Refills, Maintenance, 12/24/21 13:19:00 EDT,Injection, Partial fill upon patient request if the prescription is for a schedule II opioid drug. Start Date: 12/24/21 Status: OrderedKeppra 500 mg oral tablet 1 tablet = 500 mg, By Mouth, 2 times a day, 0 Refills, Maintenance, 12/11/21 8:47:00 EST, Tablet, Partial fill upon patient request if the prescription is for a schedule II opioid drug. Start Date: 12/11/21 Status: OrderedLantus Solostar Pen 100 units/mL subcutaneous solution = 47 units, Subcutaneous Injection, Daily, # 10 mL, 5 Refills, Maintenance, 01/17/22 13:50:00 EDT, Injection, [facility], Partial fill upon patient request if the prescription is for a schedule II opioid drug., 145, cm, 01/15/22 14:16:00 E... Start Date: 01/17/22 Status: Orderedloratadine 10 mg oral tablet 10 mg, 1, tablet, By Mouth, Daily, # 30 tablet, Refills 5, Tot. Refills 5, Maintenance, 08/01/21 14:20:00 EDT, Route to Pharmacy Electronically, [facility], Partial fill upon patient [...] opioid drug. 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
--- OUTSIDE RECORDS SUMMARY | 2022-07-11 20:32 | XMS_ITS | Continuity of Care Document ---
:1940 Author Organization [facility] Address [address] [place] [address]- Care Team Providers Name Role Phone Bharat LOW, Christel Primary Care Physician [phone] Encounter [facility] [place] Date(s): 04/11/22 - 05/11/22 [facility] [address] [place] [id number]- Allergies, Adverse Reactions, Alerts Substance Reaction Severity [...] (IM) (oldterm)15 07/25/07 Given 1Admin Note: rite fzl2Quumg Note: dedvhfoaq7Jssvh Note: wfjmoalig9Gxakd Note: [id number] Note: yfnwknbcj4Kurii Note: kgylbgajz2Xxocop Comment: lot [id number] Note: rite lju4Vcjsb/Late Reason: Other :10Location History: [facility] [id number] Note: [id number] Note: vis 08/30/813Admin Note: vis 01/26/914Admin Note: [id number] Note: administered at local pharmacy ([facility]) Medications [...] 08/04/21 14:35:00 EDT, [facility] [...] Refills 0, [facility], [facility], 04/04/22 9:06:00 [...] Refills 1, Route to Pharmacy Electronically, [facility], 145, cm, 04/04/22 9:06:00 EDT, [...] Refills 2, Route to Pharmacy Electronically, [facility], 145, cm, 02/11/22 9:18:00 EDT, [...] Daily, # 28 tablet, 2 Refills, [facility], 145, cm, 03/16/22 23:36:00 EDT, [...] Dry Weight Start Date: 01/21/22 Status: OrderedPen [place], 31 G x 5 mm BD Ultra [...] Mood disorder(Confirmed) 1998 Active Obesity(Confirmed) Active *[facility] [phone] [facility] [employer] Active GONZALEZ(Confirmed) Tubular adenoma(Confirmed) 2003 Active Social History Social History Type Response Smoking Status Former smoker; Other: quit 1 994; entered on: 01/01/16 Sex
[2022-07-11 20:37] LABS: MANUAL DIFF FLAG NO
[2022-07-11 20:49] LABS: Basophils Percent Auto 0.4 % (0-2); Eosinophils Percent Auto 0.3 % (0-4); Hematocrit 44.3 % (37.0-47.0); Hemoglobin 14.6 g/dl (12.0-16.0); Imm Gran Abs Auto 0.05 X10*3/uL (0.00-0.03); Imm Gran Pct Auto 0.5 % (0.0-0.4); Lymphocytes Percent Auto 17.6 % (20-40); Mean Corpuscular Hemoglobin 28.2 pg (27.0-33.0); Mean Corpuscular Volume 85.5 fL (80.0-98.0); Mean Platelet Volume 9.1 fL (9.4-12.3); Monocytes Absolute Auto 0.8 X10*3/uL (0.1-1.2); Neutrophils Absolute Auto 8.2 x10*3/uL (2.0-8.3); Neutrophils Percent Auto 74.2 % (45-73); Platelet Count 351 X10*3/uL (160-400); Red Blood Count 5.18 X10*6/uL (4.20-5.50); Red Cell Distribution Width 14.4 % (11.0-16.0); White Blood Count 11.1 X10*3/uL (4.8-10.8)
[2022-07-11 20:53] LABS: COVID-19 Test Negative (Negative)
[2022-07-11] MEDS: Prochlorperazine Edisylate 10 MG/2 ML VIAL IVPUSH (20:57)
[2022-07-11 21:00] LABS: Lactic Acid 0.8 mmol/L (0.5-2.0)
[2022-07-11 21:04] LABS: Alanine Aminotransferase 71 U/L (0-31); Albumin Level 4.2 g/dL (3.5-5.0); Alkaline Phosphatase 91 U/L (39-117); Anion Gap 20 (12-20); Aspartate Amino Transferase 58 U/L (5-31); Bilirubin Direct 0.3 mg/dL (0.0-0.5); Bilirubin Total 0.5 mg/dL (0.0-1.0); Blood Urea Nitrogen 20 mg/dL (9-16); Calcium 9.2 mg/dL (8.4-10.2); Carbon Dioxide 20 mmol/L (22-29); Chloride 104 mmol/L (96-108); Creatinine Clr Calc Pharmacy 28.6; Estimated Glomerular Filt Rate 48; Glucose Random 145 mg/dL (60-115); Lipase 32 U/L (8-78); Magnesium 1.6 mg/dL (1.6-2.6); Potassium 3.4 mmol/L (3.3-5.1); Sodium 141 mmol/L (135-145); Total Protein 6.7 g/dL (6.5-8.0)
[2022-07-11 21:09] LABS: Troponin-I High Sensitivity < 3.5 ng/L (<3.5-17.0)
[2022-07-11] MEDS: amLODIPine Besylate 10 MG TABLET PO (21:19)
[2022-07-11 21:43] VITALS: BP 185/71; PULSE 94; RESP 18; TEMP 36.9; O2SAT 95
--- NOTE | 2022-07-11 21:46 | PC.NURSE ---
PATIENT WAS CHANGE INTO HOSPITAL ATTIRE BY THIS PCT .
[2022-07-11 21:56] LABS: Appearance Urine Clear; Color Urine Yellow; Glucose Urine UA Negative (Negative); Leukocyte Esterase Urine Moderate (2+) (Negative); Nitrite Urine Negative (Negative); PH 6.5 (5.0-9.0); UMIC TRIGGER UACC YES; Urine Blood Negative (Negative); Urine Ketones Trace mg/dL (Negative); Urine Protein Negative (Neg-Trace)
--- NOTE | 2022-07-11 22:00 | PC.NURSE ---
Pt sytolic blood pressure elevated to 191, no headaches, no blurred vision, no vomiting. pt did not take blood pressure med today. Provider notified, [id number] mg given, blood pressure now 160/88.
[2022-07-11 22:07] LABS: Bacteria Urine None Seen (None Seen); Hyaline Casts Urine 0-2 /LPF (0-2); RBC Urine 0-2 /HPF (0-2); Squamous Epithelial Cell Urine 0-2 /HPF (0-2); UACC Culture Trigger YES
--- NOTE | 2022-07-11 22:28 | PC.NURSE ---
Pt incontinence of urine, pad changed. Pt agreeable to trying pure wick.
[2022-07-11 22:57] VITALS: BP 167/74
[2022-07-11] MEDS: cefTRIAXone sodium 1 GM in 0.9 % Sodium Chloride 50 ML IV (22:58)
[2022-07-12] VITALS: BP 180/72; PULSE 84; RESP 16; TEMP 36.8; O2SAT 96
== END 2022-07-12 00:48 | disposition home or self-care (01) ==
PROVIDERS: Emergency Provider Emergency Medicine; PCP Internal Medicine
DX: N39.0 Urinary tract infection, site not specified (principal); R11.0 Nausea; R19.7 Diarrhea, unspecified; Z20.822 Contact with and (suspected) exposure to COVID-19; I10 Essential (primary) hypertension; E11.9 Type 2 diabetes mellitus without complications; F12.90 Cannabis use, unspecified, uncomplicated; Z87.891 Personal history of nicotine dependence; Z79.02 Long term (current) use of antithrombotics/antiplatelets; Z79.899 Other long term (current) drug therapy; Z79.4 Long term (current) use of insulin
CPT/HCPCS: 74176; 80048; 80076; 81001; 81003; 83605; 83690; 83735; 84484; 85025; 87040; 87086; 87635; 93005; 96361; 96365; 99284; 99285; J0696